=== PATIENT | male | born 1960 | race Caucasian/White ===

== ENCOUNTER 2017-10-16 10:51 | Emergency (ER) | payer MEDICAID, SELFPAY ==
[2017-10-16 10:58] VITALS: BP 146/94; PULSE 52; RESP 16; TEMP 36.9; O2SAT 98
--- NOTE | 2017-10-16 11:12 | ED.GENADUL_ITS ---
Disposition Clinical Impression: Shingles Disposition: HOME Condition: Good Instructions: Shingles (ED) Additional Instructions: Please take the medication and cream as directed. Please hold off on the acyclovir unless you notice no improvement of your symptoms with the other medications. If you notice any worsening of your symptoms, or any new symptoms such as vomiting, diarrhea, fever, chills, shortness of breath, chest pain, numbness, weakness, or fainting , please return immediately to the emergency department for reevaluation. Please follow up with your primary care provider as soon as possible for reassessment and reevaluation. As always, it was a pleasure participating in your medical care today. Prescriptions: Capsaicin 0.075% [Zostrix HP 0.075% Cream] 60 gm TP BID #1 tube Gabapentin [Neurontin] 300 mg PO TID #90 capsule Valacyclovir HCl [Valacyclovir] 1,000 mg PO TID #21 tablet Referrals: Parker Dang [Primary Care Provider] - Medical Decision Making - Medical Decision Making This is a very pleasant 57-year-old gentleman who presents with signs and symptoms consistent with shingles over his left shoulder and left neck. Patient demonstrates no systemic findings, no involvement over the eye, face, or ear. His pain is moderately controlled at this time. He did not receive his shingles shot secondary to the vaccine being out at multiple location that he has called. The patient has no other complaints, at this time. He is on no disease modifying antirheumatic agents or immunosuppressants. I do feel that he can be safely discharged home with close PCP follow-up at his regular clinic at [facility]. We will give a prescription for antivirals however discussed with the patient's of the low likelihood of this giving any benefit due to the duration of his symptomatology. I recommend that he hold off on this unless his other medication regimens do not give any relief. We discussed red flags which returned the patient understands. I have extensively reviewed the treatment plan and discharge instructions with the patient. I have addressed all patient concerns at this time. The patient was made aware of what symptoms to monitor for that would warrant a return to the emergency department. Discussed the plan with the patient, they demonstrate verbal understanding and agreement with our assessment and plan at this time. History of Present Illness - General Chief complaint: RashLesion Stated complaint: RASH Time Seen by Provider: 10/16/17 11:09 - History of Present Illness Initial comments: Is a 57-year-old male with no significant past medical history who presents for evaluation of rash on his left shoulder. The patient states that roughly 10-11 days ago he had toe surgery and cauterization of his nose, 2 days after this he developed a rash on his left shoulder which causes a burning and irritating-like pain. There is no additional spreading aside for his left shoulder and left neck. He has no pleuritic chest pain, significant drainage or discharge, spreading of the rash to the right side, foreign travel, toxic exposure, or other sick contacts. He denies any aggravating or relieving factors. He denies any other associated symptoms of numbness, tingling, weakness, vision changes, eye pain. Patient denies any IV or illicit drug use. He denies any other complaints at this time. He denies any pertinent family history. - Related Data Allopurinol 300 mg PO DAILY 05/10/15 Atenolol 50 mg PO DAILY 05/10/15 Arm Brace [Wrist Support] 1 each HS #1 each 06/13/15 Atorvastatin [Lipitor] 40 mg PO QPM #90 tab 03/07/16 Aspirin 81 mg PO DAILY #90 tab-cap 03/12/16 Allopurinol 1 tab PO DAILY 08/29/16 Ergocalciferol [Vitamin D] 1 cap PO DIRECTED 08/29/16 Finasteride 1 tab PO DAILY 08/29/16 Capsaicin 0.075% [Zostrix HP 0.075% Cream] 60 gm TP BID #1 tube 10/16/17 Gabapentin [Neurontin] 300 mg PO TID #90 capsule 10/16/17 Valacyclovir HCl [Valacyclovir] 1,000 mg PO TID #21 tablet 10/16/17 Allergies Allergy/AdvReac Type Severity Reaction Status Date / Time No Known Allergies Allergy Unverified 08/29/16 08:32 Review of Systems Other: 10 point review of systems was performed, pertinent positives and negatives are noted in the history of present illness. Past Medical History - Past Medical History Medical history: hypertension gout Surgical history: no surgical history General Exam - Other Other exam information: 1.Const: Well-nourished, Well-developed, appearing stated age 2.Eyes: PERRL, no conjunctival injection, and symmetrical lids. 3.ENT: Atraumatic external nose and ears. Moist MM. Neck: Symmetric, trachea midline, No thyromegaly. 4.CVS: +S1/S2, No murmurs or gallops. Peripheral pulses 2+ and equal in all extremities. Brisk capillary refill in all extremities. 5.RESP: Unlabored respiratory effort. Clear to auscultation bilaterally. No wheezes rales or rhonchi 6.GI: Soft, Nontender/Nondistended, No hepatosplenomegaly. No guarding or rebound. 7.MSK: Normocephalic/Atraumatic, Extremities w/o deformity or ttp No cyanosis or clubbing, Normal movement of all extremities 8.Skin: There appears to be mildly erythematous vesicular like rash over the patient's left shoulder, and left neck maintaining isolation to the associated dermatome. It does not pass midline. Negative Brown sign, no evidence of lesions on the nose, eye, or ear. No evidence of herpes zoster ophthalmicus, otic S, or any other area of involvement aside for the left shoulder and left neck. No active drainage. No signs of superimposed cellulitic infection. 9.Neuro: tire setter II-XII grossly intact. Sensation grossly intact, no focal neurologic deficits. 10.Psych: (AAO) x3. Appropriate mood and affect Course Vital Signs - 24 hr 10/16/17 10:58 Temperature 36.9 C Pulse 52 L Respiratory 16 Rate Blood Pressure 146/94 Pulse Oximetry 98
== END 2017-10-16 11:30 | disposition home or self-care (01) ==
PROVIDERS: Emergency Provider Student in an Organized Health Care Education/Training Program; PCP Internal Medicine
DX: B02.9 Zoster without complications (principal); I10 Essential (primary) hypertension
CPT/HCPCS: 99283

== ENCOUNTER 2019-10-01 00:40 | Outpatient (CLI) | payer MEDICAID, SELFPAY ==
--- NOTE | 2019-10-01 13:07 | DI.RAD_ITS ---
EXAM: XR SHOULDER LT COMPLETE 2+V CLINICAL HISTORY: CHRONIC PAIN, M25.512,G89.29,STIFFNESS,RESTRICTED ABDUCTION,? BONE SPUR OR. TECHNIQUE: 2D digital imaging was performed. COMPARISON: No exams were available for comparison FINDINGS: BONES: No acute fracture is present. No bony destructive lesion is seen. No periarticular spurring is seen. Mild degenerative cystic changes are seen at the greater tuberosity. JOINTS: No dislocation present. SOFT TISSUE: Normal. IMPRESSION: No acute abnormality. No bone spurs are appreciated. DATA REPOSITORY: RADIATION DOSE DELIVERED:
== END 2019-10-01 01:00 ==
PROVIDERS: PCP Internal Medicine; Visit Provider Internal Medicine
DX: M25.512 Pain in left shoulder (principal); G89.29 Other chronic pain; M25.612 Stiffness of left shoulder, not elsewhere classified
CPT/HCPCS: 73030

== ENCOUNTER 2020-02-05 03:37 | Outpatient (CLI) | payer MEDICAID, SELFPAY ==
[2020-02-05 14:07] LABS: Calculated LDL 93 mg/dL (<100); Cholesterol 174 mg/dL (<200); HDL Cholesterol 55 mg/dL (40-60); Triglyceride 134 mg/dL (<150)
== END 2020-02-05 03:57 ==
PROVIDERS: PCP Internal Medicine; Visit Provider Internal Medicine Rheumatology
DX: E78.00 Pure hypercholesterolemia, unspecified (principal)
CPT/HCPCS: 36415; 80061

== ENCOUNTER 2020-11-30 03:09 | Outpatient (CLI) | payer MEDICAID, SELFPAY ==
--- NOTE | 2020-11-30 | DI.RAD_ITS ---
Exam(s) XR LUMBAR SPINE COMPLETE EXAM: XR LUMBAR SPINE COMPLETE CLINICAL HISTORY: LOW BACK PAIN, M54.5. TECHNIQUE: 2D digital imaging was performed. COMPARISON: No exams were available for comparison FINDINGS: There is no evidence of fracture or listhesis. The L5 segment is sacralized. Mild disc space narrow ing at this level. Other disc spaces above this level exhibit normal height. Anterior osseous lippi ng is noted at L1-2 level which probably indicates an element of disc disease despite preserved disc height at this level. Mild facet arthropathy. Sacroiliac joints appear unremarkable. No scoliosis. IMPRESSION: Findings as above. Sacralized L5 segment. This places additional stress upon the L4-5 disc space. DATA REPOSITORY: RADIATION DOSE DELIVERED:
--- NOTE | 2020-11-30 11:20 | DI.RAD_ITS ---
Exam(s) XR SACRUM COCCYX EXAM: XR SACRUM COCCYX CLINICAL HISTORY: BUTTOCK AND LOW BACK PAIN, M79.18,M54.5. TECHNIQUE: 2D digital imaging was performed. COMPARISON: No exams were available for comparison FINDINGS: No evidence of sacral fracture nor obvious osseous lesions. Sacroiliac joints appear unremarkable. Symphysis pubis appears unremarkable. No osseous lesions. IMPRESSION: DATA REPOSITORY: RADIATION DOSE DELIVERED:
== END 2020-11-30 03:29 ==
PROVIDERS: PCP Internal Medicine; Visit Provider Internal Medicine
DX: M54.59 Other low back pain (principal); M79.18 Myalgia, other site; Q76.49 Other congenital malformations of spine, not associated with scoliosis; M47.896 Other spondylosis, lumbar region
CPT/HCPCS: 72110; 72220

== ENCOUNTER 2021-08-27 12:25 | Emergency (ER) | payer MEDICAID, SELFPAY ==
[2021-08-27 12:29] VITALS: BP 151/104; PULSE 67; RESP 14; O2SAT 98
--- NOTE | 2021-08-27 13:00 | DI.RAD_ITS ---
Exam(s) XR FINGER LT INDEX EXAM: XR FINGER LT INDEX EXAM DATE/TIME: CLINICAL HISTORY: possible wood splinter near DIP. TECHNIQUE: 2D digital imaging was performed of the left finger. Three views were obtained. PA/AP, oblique, and lateral views were obtained. COMPARISON: None. FINDINGS: BONES: No acute fracture is present. No bony destructive lesion is seen. JOINTS: No dislocation is present. SOFT TISSUE: Normal. No radiopaque foreign body. IMPRESSION: No evidence of a radiopaque foreign body. DATA REPOSITORY: RADIATION DOSE DELIVERED:
--- NOTE | 2021-08-27 13:15 | ED.GENADUL_ITS ---
Discharge Plan Disposition Patient Disposition: HOME Condition: Stable Discharge Details Clinical Impression: Infection of skin of finger Primary Care Provider: Parker Dang ED Provider: Alva He Home Meds and New Rx's Prescriptions: New cephalexin 500 mg capsule 500 mg PO QID 7 Days Qty: 28 0RF Continued (DME) arm brace [Wrist Support Large-XLarge] 1 EACH misc 1 ea Miscellaneous HS Qty: 1 Rx Instructions: Left carpal tunnel splint. Wear at night. atorvastatin [Lipitor] 40 MG tablet 40 mg PO QPM Qty: 90 aspirin 81 MG tablet,chewable 81 mg PO DAILY Qty: 90 allopurinol 300 MG tablet 300 mg PO DAILY atenolol 50 MG tablet 50 mg PO DAILY allopurinol 100 MG tablet 1 tab PO DAILY Label Comments: 08/29/16 pt states he takes 1 300mg tab and 1 100mg tab daily at 12 noon ergocalciferol (vitamin D2) [Vitamin D2] 50,000 UNITS capsule 1 cap PO DIRECTED Finasteride 5 MG Tablet 1 tab PO DAILY gabapentin [Neurontin] 300 MG capsule 300 mg PO TID Qty: 90 0RF Rx Instructions: On the first day take 1 pill, on the second day take 1 pill twice daily, on the third day and for the remainder of the prescription take 1 pill 3 times a day. valacyclovir 1,000 MG tablet 1,000 mg PO TID Qty: 21 0RF capsaicin [Trixaicin HP] 60 GM cream 60 gm Topical BID Qty: 1 0RF Rx Instructions: Apply cream to the affected area twice daily Discharge Instructions Instructions: Cellulitis (ED) Additional Instructions: Your x-ray today is reassuring and shows no evidence of foreign body or fracture. A wood splinter may not be visible on x-ray. It may be possible that if there is a retained wood splinter and it may work itself out to the surface at a later time. A prescription for antibiotics has been sent electronically to your pharmacy to take as directed until finished. Keep wound clean and dry. Cover wound with bandage if risk of contamination. Otherwise you can keep the wound open to air if resting at home to allow edges to dry and heal. Follow-up with your primary care doctor in 1 week. Return to the emergency department with any worsening or new concerning symptoms such as fever, increased pain, redness or swelling. Discharge Data Discharge Physician: Alva He Medical Decision Making 61-year-old male presents with concern for embedded wood splinter in his left second finger for the past 2 weeks. Patient appears comfortable and nontoxic. He has a 2 mm circular open wound on the volar surface of the lateral finger near the DIP joint. There is mild surrounding erythema and edema. There is no obvious crepitus or evidence of cellulitis or abscess. Discussed with patient at length that his symptoms could be secondary to a skin infection rather than a embedded foreign body. Will refer for x-rays but discussed that would may not be evident on x-ray. As there is no palpable or obvious foreign body on inspection, discussed that I do not recommend incision and exploration at this site due to risk of neurovascular injury. Patient referred for x-ray which was unremarkable. Will cover with antibiotics. Patient advised on the importance of wound care. Advised that if there is an embedded splinter it may potentially work itself to the surface. Advised to return if he develops any worsening symptoms such as fever or increasing redness swelling or pain. Medical Records Medical records reviewed: Yes I reviewed the patient's medical records. Imaging Data Radiologic Study: Radiologist's impression: XR Left Finger(s) Exam date and time: 08/27/2021 1:25 PM Age: 61 years old Clinical indication: Other: Possible wood splinter near dip TECHNIQUE: Imaging protocol: Radiologic exam of the Left fingers. Views: Minimum 2 views. COMPARISON: No relevant images were readily available for comparison purposes. FINDINGS: Bones/joints: No acute fracture or dislocation. Soft tissues: Unremarkable. IMPRESSION: No acute findings.? No radiopaque foreign body. HPI General Mode of arrival: ambulatory . Date/Time Provider Initiated Documentation: 08/27/21 12:37 . Limitations to Documentation: no limitations . Information obtained by: patient . HPI Narrative: Patient is a 61-year-old male who presents with left second finger pain for the past 2 weeks after he states he got a wood splinter in his finger. Patient states he attempted to search for a splinter that was embedded in his finger but could not find it. He states he cleaned his finger and cut around the area with nail clippers but could not find the splinter. He states since then the area has become more painful and suspect there is a retained wood splinter. He denies fever. He states his tetanus is up-to-date within the last 5 years. Related Data Home Medications Medication Instructions Recorded Confirmed allopurinol 300 mg tablet 300 mg PO DAILY 05/10/15 10/16/17 atenolol 50 mg tablet 50 mg PO DAILY 05/10/15 10/16/17 arm brace (Wrist Support #1 ea 06/13/15 Large-XLarge) atorvastatin 40 mg tablet (Lipitor) 40 mg PO QPM #90 tabs 03/07/16 aspirin 81 mg chewable tablet 81 mg PO DAILY #90 tab-caps 03/12/16 Finasteride 1 tab PO DAILY 08/29/16 10/16/17 allopurinol 100 mg tablet 1 tab PO DAILY 08/29/16 08/29/16 ergocalciferol (vitamin D2) 1,250 1 cap PO DIRECTED 08/29/16 10/16/17 mcg (50,000 unit) capsule (Vitamin D2) capsaicin 0.075 % topical cream 60 gm topical BID #1 tube 10/16/17 (Trixaicin HP) gabapentin 300 mg capsule 300 mg PO TID ##90 10/16/17 (Neurontin) valacyclovir 1 gram tablet 1,000 mg PO TID ##21 10/16/17 cephalexin 500 mg capsule 500 mg PO QID 7 days #28 caps 08/27/21 Previous Rx's Medication Instructions Recorded capsaicin 0.075 % topical cream 60 gm topical BID #1 tube 10/16/17 (Trixaicin HP) gabapentin 300 mg capsule 300 mg PO TID ##90 10/16/17 (Neurontin) valacyclovir 1 gram tablet 1,000 mg PO TID ##21 10/16/17 cephalexin 500 mg capsule 500 mg PO QID 7 days #28 caps 08/27/21 Allergies Allergy/AdvReac Type Severity Reaction Status Date / Time No Known Allergies Allergy Unverified 08/27/21 12:34 General Stated Complaint: GenMedical MIKE: 5 Review of Systems All systems reviewed & are unremarkable except as noted in HPI and below Constitutional Constitutional: Reports as per HPI, Denies chills and Denies fever(s) Eyes Eyes: Denies blurry vision ENT Ears, Nose, Mouth, and Throat: Denies dizziness, Denies sore throat and Denies throat swelling Cardiovascular Cardiovascular: Denies chest pain and Denies dyspnea Respiratory Respiratory: Denies cough and Denies dyspnea Gastrointestinal Gastrointestinal: Denies abdominal pain, Denies diarrhea and Denies vomiting Genitourinary Genitourinary: Denies hematuria and Denies dysuria Musculoskeletal Musculoskeletal: Denies back pain and Denies numbness Comments: L 2nd finger pain Integumentary/Breasts Skin/Breast: Denies lesions and Denies rash Neurologic Neurologic: Denies dizziness, Denies localized weakness and Denies numbness Allergic/Immunologic Allergic/Immunologic: Denies throat swelling PFSH All Active Problems (Updated 08/27/21 @ 14:01 by Alva He DO) Infection of skin of finger (Acute) Medical History (Updated 08/27/21 @ 14:01 by Alva He DO) CVA (cerebral vascular accident) HTN (hypertension) Hx of hyperlipidemia Surgical History (Updated 09/27/16 @ 12:00 by Lyric Castellanos) Colonoscopy - IV Sedation (08/29/16) EGD - IV Sedation (08/29/16) Social History Smoking/Tobacco Use Status: Never Smoking risk assessment performed?: Yes Alcohol Intake: current Alcohol Intake frequency: 0-2 drinks per day Alcohol type: wine Drug use: Never Substance use type: does not use Do you feel safe at home: Yes Do you feel safe in your relationship?: Yes Exam Const General: cooperative, healthy appearing and no acute distress Orientation: alert, awake and oriented x3 HENMT Head: normal to inspection Mouth: oral mucosae normal Eyes General: appearance normal, both eyes and all related structures Neck Neck: normal visual inspection Resp Effort & Inspection: normal respiratory effort and able to speak in complete s entences Cardio Rate: regular rate Skin General skin exam: no rashes or lesions noted Neuro General: patient alert, patient awake and patient oriented x3 Motor: muscle tone normal throughout Extrem Hand/finger images: 1. 2x2mm crusted wound noted on volar lateral surface of L 2nd finger near DIP. There is mildly surrounding erythema, edema, tenderness to palpation and pain with range of motion. No induration, fluctuance, drainage, bleeding or crepitus. There is full range of motion at the left second finger without limitation or deformity. Psych Appearance: grossly normal Affect: normal affect Course Vital Signs Vital signs: Vital Signs Pulse 67 08/27/21 12:29 Respiratory Rate 14 08/27/21 12:29 Blood Pressure 151/104 H 08/27/21 12:29 Pulse Oximetry 98 08/27/21 12:29 Pulse 67 08/27/21 12:29 Respiratory Rate 14 08/27/21 12:29 Respiratory Effort Non-Labored 08/27/21 12:35 Blood Pressure 151/104 H 08/27/21 12:29 Blood Pressure Position Sitting 08/27/21 12:29 Pulse Oximetry 98 08/27/21 12:29 Oxygen Delivery Method Room Air 08/27/21 12:29 Oxygen Flow Rate 0 08/27/21 12:29 Pain Level 0 08/27/21 12:29 PAWSS Have you Been Recently Intoxicated or Drunk Within the Last 30 days?: No Have you Ever Experienced Previous Episodes of Alcohol Withdrawal?: No Have you ever Experienced Withdrawal Seizures?: No Have you ever Experienced Delirium Tremens(DT)s?: No Have you ever undergone Alcohol Rehabilitation Treatment (i.e, inpt ot outpatient treatment programs)?: No Have you ever Experienced Blackouts?: No Have you ever Combined Alcohol with other Downers within the last 90 days?: No Have you ever Combined Alcohol with any other Substance of Abuse during the last 90 days?: No Positive Blood Alcohol level on Presentation? [PCS.BAL]: No Evidence of Increased Autonomic Activity (i.e. HR>120, tremor, sweating, agitation, nausea)?: No Result: 0
--- NOTE | 2021-08-27 13:35 | DI.VRAD_ITS ---
PROCEDURE INFORMATION: Exam: XR Left Finger(s) Exam date and time: 08/27/2021 1:25 PM Age: 61 years old Clinical indication: Other: Possible wood splinter near dip TECHNIQUE: Imaging protocol: Radiologic exam of the Left fingers. Views: Minimum 2 views. COMPARISON: No relevant images were readily available for comparison purposes. FINDINGS: Bones/joints: No acute fracture or dislocation. Soft tissues: Unremarkable. IMPRESSION: No acute findings. No radiopaque foreign body. Dictated and Authenticated by: Ino Eid MD. Ordering:COREY Calle MD
[2021-08-27] MEDS: Cephalexin 500 MG CAP PO (14:09)
== END 2021-08-27 14:09 | disposition home or self-care (01) ==
PROVIDERS: Emergency Provider Physician Assistant; PCP Internal Medicine
DX: L08.9 Local infection of the skin and subcutaneous tissue, unspecified (principal); S61.201A Unspecified open wound of left index finger without damage to nail, initial encounter; I10 Essential (primary) hypertension; Z86.73 Personal history of transient ischemic attack (TIA), and cerebral infarction without residual deficits; W26.8XXA Contact with other sharp object(s), not elsewhere classified, initial encounter
CPT/HCPCS: 99283; 73140; 99284

== ENCOUNTER 2021-08-29 11:28 | Emergency (ER) | payer MEDICAID, SELFPAY ==
--- OUTSIDE RECORDS SUMMARY | 2021-08-29 11:43 | XMS_ITS | Clinical Summary ---
:1960 Author Organization [facility] [place] [address] Care Team Providers Name Role Phone Parker Dang MD Primary Care Provider Allergies No known active allergies Medications Medication Sig Dispensed Refills Start Date End Date Status colchicine (COLCRYS) Take 1 tablet by 60 tablet 3 02/08/2016 Active 0.6 mg mouth 2 times TabletIndications: daily as needed. Gout, unspecified Reported on cause, unspecified 01/31/2016 chronicity, unspecified site, CKD (chronic kidney disease), unspecified stage, Proteinuria, Gynecomastia diclofenac (Voltaren) Apply 2 g 100 g 3 08/03/2019 Active 1 % GelIndications: topically 4 times Primary osteoarthritis daily as needed. of both knees, Gout, unspecified cause, unspecified chronicity, unspecified site cholecalciferol, Take 1 capsule by 90 capsule 3 11/15/2020 Active Vitamin D3, mouth daily. (cholecalciferol, Vitamin D3,) 50 mcg (2,000 unit) Capsule atenoloL (Tenormin) 50 TAKE ONE TABLET 90 tablet 3 12/22/2020 Active mg TabletIndications: BY MOUTH EVERY Hypertension, DAY unspecified type finasteride (Proscar) TAKE 1 TABLET BY 90 tablet 3 12/22/2020 Active 5 mg MOUTH ONCE DAILY TabletIndications: Benign prostatic hyperplasia with lower urinary tract symptoms, symptom details unspecified, Lower urinary tract symptoms (LUTS) aspirin 81 mg Tablet, CHEW ONE TABLET 90 tablet 3 03/21/2021 Active ChewableIndications: BY MOUTH EVERY Idiopathic chronic DAY gout, left ankle and foot, with tophus (tophi) allopurinoL (Zyloprim) Take 1 tablet by 90 tablet 3 03/27/2021 Active 300 mg mouth daily. TabletIndications: Gout, unspecified cause, unspecified chronicity, unspecified site atorvastatin (Lipitor) TAKE ONE TABLET 90 tablet 3 06/02/2021 Active 40 mg BY MOUTH EVERY TabletIndications: DAY Hyperlipidemia, unspecified hyperlipidemia type Active Problems Problem Noted Date Sacralization of lumbar vertebra 11/30/2020 Primary osteoarthritis involving multiple joints 12/03 Ingrown toenail 06/11/2017 Ankle pain 05/23/2017 Lower urinary tract symptoms (LUTS) 05/22/2017 Traumatic amputation two or more fingers 01/18/2017 Overview: 4th and 5th fingers on left hand CKD (chronic kidney disease) 01/18/2017 Overview: Perhaps hypertensive nephropathy Aortic ectasia 11/22/2016 Hypertension 11/19/2016 Overview: Patient's home BP cuff validated in clin ic today 06/11/2017. Hyperlipidemia 11/19/2016 Gout 11/19/2016 BPH (benign prostatic hyperplasia) 11/19/2016 Diverticulosis of both small and large intestine witho ut perforation or 06/21/2016 abscess without bleeding Overview: 06/21/16 [facility] E D; treated with Augmentin 500-125 BID x7 days; no symptoms revealed by 08/29/16 colo Encounters Date Type Specialty Care Team Description 06/01/2021 Refill Internal Medicine Astrid Larose MD Hyp erlipidemia, unspecified hyperlipidemia type from Last 3 Months Immunizations Name Administration Dates Next Due Influenza PF, Split 12/07/2019, 04/23/2019 Influenza Vaccine PF, Quadrivalent 04/23/2019, 12/03/2017 Influenza Vaccine W/preservative, Quadrivalent 12/07/2019 Influenza Vaccine, Unspecified Formulation 12/08/2020 Tdap Vaccine 01/18/2017 Zoster, Recombinant 02/21/2018, 12/01/2017 Family History Medical History Relation Comments Cancer Father Esophageal Cancer Father Coronary Artery Disease Maternal Grandfather Endocrine Disorder Maternal Grandfather Heart Disease Maternal Grandfather Hyperlipidemia Maternal Grandfather Diabetes Neg Hx Thyroid Disease Neg Hx Relation Status Comments Brother Alive Father Maternal Grandfather Sister 1 Alive Sister 2 Alive Sister 3 Alive Social History Tobacco Use Types Packs/Day Years Used Date Never Smoker Smokeless Tobacco: Never Used Alcohol Use Standard Drinks/Week Comments Yes 14 (1 standard drink = 0.6 oz pure wine 'with lots of ice' or cal alcohol) cally/rum nightly Alcohol Habits Answer Date Recorded How often do you have a drink Not asked containing alcohol? How many drinks containing alcohol do Not asked you have on a typical day when you are drinking? How often do you have six or more Not asked drinks on one occasion? Comment: wine 'with lots of ice' or cal 2020 cally/rum nightly Physical Activity Answer Date Recorded On average, how many days per week do you engage in moderate to 4 days 09/23/2020 strenuous exercise (like walking fast, running, jogging, dancing, swimming, biking, or other activities that cause a light or heavy sweat)? On average, how many minutes do you engage in exercise at th is 10 min 09/23/2020 level? Housing Stability Answer Date Recorded In the last 12 months, was there a time when you were Patien t refused 09/23/2020 not able to pay the mortgage or rent on time? In the last 12 months, how many places have you lived? 1 09/23/2020 In the last 12 months, was there a time when you did Patient refused 09/23/[address] to sleep or slept in a longterm (including now)? Sex Assigned at Date Recorded Male 05/03/2020 3:20 PM EDT Last Filed Vital Signs Vital Sign Reading Time Taken Comments Blood Pressure 133/79 09/27/2020 3:36 PM EDT Pulse 63 09/27/2020 3:36 PM EDT Temperature 37.1 ??C (98.8 ??F) 09/27/2020 3:36 PM EDT Respiratory Rate 18 06/11/2017 2:30 PM EDT Oxygen Saturation 96% 09/27/2020 3:36 PM EDT Inhaled Oxygen Concentration - - Weight 93.8 kg (206 lb 12.8 09/27/2020 3:36 PM with melissa es on oz) EDT Height 176.8 cm (5' 9.61) 09/27/2020 3:36 PM with lili foster on EDT Body Mass Index 30.01 09/27/2020 3:36 PM EDT Plan of Treatment Health Maintenance Due Date Last Done Comments Covid-19 Vaccine (#1) 01/05/1965 HIV screen 1977 Advance Directive 2014 Colonoscopy 08/29/2021 08/29/2016 (See prior EHR), 08/29/2016 Influenza (Flu) vaccine (1 of 1 - 10/19/2021 12/08/2020, , Influenza standard series) 12/07/2019, Additiona l history exists Diabetes Screening (HgbA1C or 09/28/2023 09/27/2020, 2018, Glucose) 12/03/2017, Additional history exists Tetanus vaccine 01/18/2027 01/18/2017 Hepatitis C Screening Completed 08/10/2003 (See prior EHR) Tdap adult Completed 01/18/2017 Zoster vaccine Completed 02/21/2018, 12/01/2017 Goals Goal Patient Goal Associated Recent Patient-Stated? 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
--- OUTSIDE RECORDS SUMMARY | 2021-08-29 11:44 | XMS_ITS | Encounter Summary ---
:1960 Author Organization [facility] Address [address] [place] [address] Care Team Providers Name Role Phone Parker Dang MD Primary Care Provider Encounter Details Date Type Department Care Team Description 09/28/2019 TH Visit Internal Medicine at Parker Dang onic pain in left shoulder; (TeleHealth) Radha Mendoza MD Changing skin lesion; [address] [facility] [place] [address] GENERAL INTERNAL [phone] [place] [id number] Social History Tobacco Use Types Packs/Day Years Used Date Never Smoker Smokeless Tobacco: Never Used Alcohol Use Standard Drinks/Week Comments Yes 14 (1 standard drink = 0.6 oz pure alcoh ol) Physical Activity Answer Date Recorded On average, [...] place to sleep or slept in a detention (including now)? Sex Assigned at Date Recorded Male 05/03/2020 3:20 PM EDT documented as of this encounter Progress Notes Parker Dang MD - 09/28/2019 3:00 PM EDT Subjective: Patient ID: Mohit Dotson is a 59 y.o. male. HPI Appointment for shoulder pain. Left shoulder is bothering him - has been told he has a 'bone spur' that is limiting his mobility/movement. Right shoulder is a bit painful, but responds to ice; the left shoulder gets sore frequently,but not red (that he can see). It does seem to get swollen once in a while when he 'does too much.' He can have weakness in the left arm with lifting heavy objects, which he does not think is apprehension but actual weakness. He reports that his dining room coordinator has felt some crepitus. No neck pain; thepain feels very focused to the shoulder. He has some numbness that can go from the bicep to the shoulder. Not taking any pain medications for it. Reports that he had an appointment for gout with rheumatology in July and will have a new dining room coordinator in October. BP is 140s systolic, weight is stable. Reports that he has ongoing occasional epistaxis that was seen in January by Dr. Britton. Hasn't beentreating with any ointments at this time, but does have water on the stove to keep the area moist. Has some changing 'moles' on his back that he wants to send me a picture of. Not sure he wants to goto dermatology. Review of Systems No fevers or chills. Objective: Physical Exam NAD, pleasant +Painful arc test at 90 degrees. Negative drop arm test. Empty can sign is positive. Apley scratch testing is positive. Assessment and Plan: 59 yo M with gout now with left>>right shoulder pain. Likely adhesive capsulitis +/- glenohumeral arthritis. - left shoulder pain: start with shoulder XR and determine role for further intervention (PT vs steroid injection vs ortho referral) - epistaxis: recommended restarting emollient (Vaseline) to encourage moist environment in the nare;if no resolution, return to ENT - changing skin lesions: instructed him to send a pic to me and we can determine whether there is a need for dermatology; per 2018 derm note, he has many SKs, which I am guessing is there. documented in this encounter Plan of Treatment Not on filedocumented as of this encounter Goals Goal Patient Goal Associated Recent Patient-Stated? 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
--- OUTSIDE RECORDS SUMMARY | 2021-08-29 11:44 | XMS_ITS | Encounter Summary ---
:1960 Author Organization [facility] [place] [address] Care Team Providers Name Role Phone Parker Dang MD Primary Care Provider Reason for Visit Reason Onset Date Comments Establish Care 11/25/2018 Encounter Details Date Type Department Care Team Description 11/25/2018 [facility] [address] [place] [address] Social History Tobacco Use Types Packs/Day Years [...] minutes do you engage in exercise at is 10 min 09/23/2020 level? Housing Stability [...] place to sleep or slept in a [place] facility (including now)? Sex Assigned at Date Recorded Male 05/03/2020 3:20 PM EDT documented as of this encounter Miscellaneous Notes Telephone Encounter - Rajwinder Moore - 11/26/2018 10:08 AM EDT Patient is staying with Dr. Dang and going to [facility] Telephone Encounter - Bela Benedict - 11/25/2018 10:15 AM EDT Route encounter to Admin Tenant Selector of current PCP Request Details (done by the [facility]) Name of Caller: Reji Current PCP: Parker Dang MD What is the reason for the switch request? Patient does not want to follow to [facility] and does not want a female provider What/Who is the pt???s PCP preference? Male Provider Immediate needs: no Comments: Review of History (done by ) No issues of concern No shows Previous PCP switches Patient has seen assigned PCP Resolution Switch Approved: Reestablish with: Appointment needs: Switch Declined: Patient may choose to keep their current PCP or seek primary care outside [facility] Other: documented in this encounter Plan of Treatment Not on filedocumented as of this encounter Goals Goal Patient Goal Associated Recent Patient-Stated? 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
--- OUTSIDE RECORDS SUMMARY | 2021-08-29 11:44 | XMS_ITS | Encounter Summary ---
:1960 Author Organization [facility] [place] [address] Care Team Providers Name Role Phone Parker Dang MD Primary Care Provider Reason for Visit Reason Onset Date Comments Immunizations 12/07/2019 Encounter Details Date Type Department Care Team Description 12/07/2019 Telephone Internal Medicine at [facility] Mickie Quintero Immunizations [address] [place], [place] [id number] Social History Tobacco Use Types Packs/Day Years [...] place to sleep or slept in a custodial (including now)? Sex Assigned at Date Recorded Male 05/03/2020 3:20 PM EDT documented as of this encounter Miscellaneous Notes Telephone Encounter - Mickie Quintero - 12/07/2019 11:45 AM EDT Message: Pt is calling to speak with a nurse. Pt states he is going for his flu shot today and thereare 3 different shots. Pt is wondering which one he should get? Please call to advise. Ask caller their first and last name and relationship to the patient: self Best time to call back: any Ok to leave a message: y Ok to send my- message: n Offered Appointment: n MA/Nurse/[place] contacted via: Message: y Call: y Pager: n documented in this encounter Plan of Treatment Not on filedocumented as of this encounter Goals Goal Patient Goal Associated Recent Patient-Stated? 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
--- OUTSIDE RECORDS SUMMARY | 2021-08-29 11:44 | XMS_ITS | Encounter Summary ---
:1960 Author Organization [facility] [place] [address] Care Team Providers Name Role Phone Parker Dang MD Primary Care Provider Reason for Visit Reason Comments Medication Refill Encounter Details Date Type Department Care Team Description 03/21/2019 Refill Rhe[place]ology at [facility] Gina Gutierrez Gout, unspecified [facility] Xavier Garcia DO cause, [place] [address] [facility] chronicity, unspecified [phone] DR barraza RHEUMATOLOGY [place], [place] [address] (Wo rk) Social History Tobacco Use Types Packs/Day Years [...] place to sleep or slept in a retirement (including now)? Sex Assigned at Date Recorded Male 05/03/2020 3:20 PM EDT documented as of this encounter Plan of Treatment Not on filedocumented as of this encounter Goals Goal Patient Goal Associated Recent Patient-Stated? Author Type Problems Progress Blood Blood Hypertension 133/79 No Romero, Pressure < Pressure (09/27/2020 Susie Del Toro, 130/90 3:36 PM EDT) PUTTY PATCHER documented as of this encounter Visit Diagnoses Diagnosis Gout, unspecified cause, unspecified chr onicity, unspecified site documented in this encounter Care Teams Supervisor Pipe Joints Relationship Specialty Start Date End Date Parker Dang MD PCP - General General Internal Medicine 10/01/16 [facility] GENER[place] [address] documented as of this encounter
--- OUTSIDE RECORDS SUMMARY | 2021-08-29 11:44 | XMS_ITS | Encounter Summary ---
:1960 Author Organization [facility] [place] [address] Care Team Providers Name Role Phone Parker Dang MD Primary Care Provider Encounter Details Date Type Department Care Team Description 06/17/2017 External Results Internal Medicine at Rajwinder Arias , Acute UTI (urinary [address] HAND ICER tract infection) [address] [place] [id number] Social History Tobacco Use Types Packs/Day Years [...] place to sleep or slept in a jail (including now)? Sex Assigned at Date Recorded Male 05/03/2020 3:20 PM EDT documented as of this encounter Plan of Treatment Not on filedocumented as of this encounter Goals Goal Patient Goal Associated Recent Patient-Stated? Author Type Problems Progress Blood Blood Hypertension 133/79 No Romero, Pressure < Pressure (09/27/2020 Susie Del Toro, 130/90 3:36 PM EDT) HAND ICER documented as of this encounter Procedures Procedure Name Priority Date/Time Associated Comments Diagnosis URINALYSIS WITH Routine 06/14/2017 12:09 PM Acute UTI (urinary Results for this REFLEX CULTURE EDT tract infection) procedure are in the results section. documented in this encounter Results (ABNORMAL) Urinalysis with reflex Culture (06/14/2017 12:09 PM EDT) [facility] gist Method Time Signature Color UA yellow EXTERNAL LAB (External Lab) Appearance UA clear EXTERNAL LAB (External Lab) Spec [place] UA 1.015 EXTERNAL LAB (External Lab) pH UA 7.0 EXTERNAL LAB (External Lab) Protein UA 100 (ExtH) EXTERNAL LAB Comment: external reference range negati ve Glucose UA negative (External Lab) EXTER NAL LAB Ketones UA negative (External Lab) EXTER NAL LAB Bilirubin UA negative (External Lab) EXT ERNAL LAB Urobilinogen UA 0.2 (External Lab) EXTER NAL LAB Blood UA moderate (ExtH) EXTERNAL LAB Comment: external reference range negati ve Leukocytes UA small (ExtH) EXTERNAL LAB Comment: external reference range negati ve Nitrite UA negative (External Lab) EXTER NAL LAB Specimen (Source) Anatomical Collection Method Collection Time Re ceived Time Location / / Volume Laterality Urine specimen 06/14/2017 12:09 obtained by clean PM EDT catch procedure (specimen) Narrative This result has an attachment that is no t available. Parker Dang MD URINE ORDERABLES Performing Organization Address City/State/ZIP Code Phon e Number EXTERNAL LAB documented in this encounter Visit Diagnoses Diagnosis Acute UTI (urinary tract infection) Urinary tract infection, site not specif ied documented in this encounter Care Teams Accounting Machine Servicer Relationship Specialty Start Date End Date Parker Dang MD PCP - General General Internal Medicine 10/01/16 [facility] GENERAL [place] [address] documented as of this encounter
--- OUTSIDE RECORDS SUMMARY | 2021-08-29 11:44 | XMS_ITS | Encounter Summary ---
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
--- OUTSIDE RECORDS SUMMARY | 2021-08-29 11:44 | XMS_ITS | Encounter Summary ---
:1960 Author Organization [facility] [place] [address] Care Team Providers Name Role Phone Parker Dang MD Primary Care Provider Encounter Details Date Type Department Care Team Description 06/11/2017 Office [place] [facility] [place], Idiopathic gout of multiple sites, unspecified chronicity; [facility] Gina Garcia DO Primary osteoarthritis involving multipl [place] [address] CENTER [phone] [place] [address] Social History Tobacco Use Types Packs/Day Years [...] place to sleep or slept in a fdc (including now)? Sex Assigned at Date Recorded Male 05/03/2020 3:20 PM EDT documented as of this encounter Progress Notes Gina Gutierrez DO - 06/11/2017 1:30 PM EDT Outpatient Rheumatology Followup Problem List: 1. Gout :Was off allopurinol for 10 years and is back on it starting in 2015.taking allopurinol 400 mg daily. Last uric acid 02/2016 was 4.1 2. OA. 3. TIA 4. CKD - GFR 46-53 He states that he has always had joint pains that he thinks were normal and tolerable. Has other chronic joint pains that feel different than his gout. 5. Low vitamin D (28 in May 2016) Interim History: Last seen in November. Gout:continues on allopurinol with no severe gout flares. Most recent uric acid was 5 on 05/09. We lowered his allopurinol to 300 mg daily. He continues to get pain in his toe joints. His knees bother him some days. Other days he is OK. He is eating a very healthy diet. He has not needed any colchicine or diclofenac. Low vitamin D: has been taking weekly vitamin D. Went to see Dr. Hand, ENT at [place]. He has epistaxis and a deviated septum. Needs surgeryfor this. Scheduled or July 04. Left shoulder continues to hurt but not as much. PMH: CVA, HTN, hyperlipidemia, CKD Social Hx: never smoker Family Hx: father had gout Physical Exam: Not repeated today Assessment and Plan: This was a counseling dominated visit. I spent 30 minutes with the patient and 25 minutes was spent in discussion of the followin yo male with gout and osteoarthritis. I explained that the pain that is occurring intermittently in his toes is from osteoarthritis. Likewise this is the same reason for the pain in his knees. He continues to be quite active and I encouraged him to keep doing this. He is eating a healthy diet and I congratulated him for this as well. He will continue taking 300 mg of allopurinol. We do not need any labs today. He is seeing Dr. Dang today after this visit. He is having surgeryfor his deviated septum on May 17. RTC in 6 months. The patient knows to call or write in the interim with any concerns or questions. documented in this encounter Plan of Treatment Not on filedocumented as of this encounter Goals Goal Patient Goal Associated Recent Patient-Stated? 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
--- OUTSIDE RECORDS SUMMARY | 2021-08-29 11:44 | XMS_ITS | Encounter Summary ---
:1960 Author Organization [facility] [place] [address] Care Team Providers Name Role Phone Parker Dang MD Primary Care Provider Reason for Visit Reason Onset Date Comments Medication Refill 05/31/2020 Encounter Details Date Type Department Care Team Description 05/31/2020 Refill Internal Medicine at Parker Dang, Idiopathic chronic [address] gout, left ankle and [address] [facility] [address] [place], [place] [address] GENERAL INTERNAL (tophi) [phone] MED-LYME [place], [place] [address] (Wo rk) Social History Tobacco [...] place to sleep or slept in a intermediate (including now)? Sex Assigned at Date Recorded Male 05/03/2020 3:20 PM EDT documented as of this encounter Plan of Treatment Not on filedocumented as of this encounter Goals Goal Patient Goal Associated Recent Patient-Stated? 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
--- OUTSIDE RECORDS SUMMARY | 2021-08-29 11:44 | XMS_ITS | Encounter Summary ---
:1960 Author Organization [facility] [place] [address] Care Team Providers Name Role Phone Parker Dang MD Primary Care Provider Encounter Details Date Type Department Care Team Description 01/29/2019 Orders Only [place] [facility] [place], Mixed hyperlipidemia [facility] [place] [address] RHEUMATOLOGY [place], [place] [address] Social History Tobacco Use Types Packs/Day Years [...] Susie Del Toro, 130/90 3:36 PM EDT) PCAT INSTRUCTOR documented as of this encounter Visit Diagnoses Diagnosis Mixed hyperlipidemia documented in this encounter Care Teams Medical Coding Specialist Relationship Specialty Start Date End Date Parker Dang MD PCP - General General Internal Medicine 10/01/16 [facility] [place] [address] documented as of this encounter
--- OUTSIDE RECORDS SUMMARY | 2021-08-29 11:44 | XMS_ITS | Encounter Summary ---
:1960 Author Organization [facility] [place] [address] Care Team Providers Name Role Phone Parker Dang MD Primary Care Provider Reason for Visit Reason Comments Medication Refill Encounter Details Date Type Department Care Team Description 09/20/2020 Refill Internal Medicine at Parker Dang, Benign prostatic hyperplasia with lower urinary tract symptoms, symptom details unspecified; Radha Velasquez MD Lower urinary tract symptoms (LUTS) [address] [facility] [place] [address] [phone] [place] [id number] (Wo rk) Social History Tobacco Use Types [...] Problems Progress Blood Blood Hypertension 133/79 No [place], Pressure < Pressure (09/27/2020 Susie Del Toro, 130/90 3:36 PM EDT) FINISH INSPECTOR documented as of this encounter Visit Diagnoses Diagnosis Benign prostatic hyperplasia with lower urinary tract symptoms, symptom details unspecified Lower urinary tract symptoms (LUTS) Other symptoms involving urinary system documented in this encounter Care Teams Salvage Mechanic Relationship Specialty Start Date End Date Parker Dang MD PCP - General General Internal Medicine 10/01/16 [facility] [place] [address] documented as of this encounter
--- OUTSIDE RECORDS SUMMARY | 2021-08-29 11:44 | XMS_ITS | Encounter Summary ---
:1960 Author Organization [facility] [place] [address] Care Team Providers Name Role Phone Parker Dang MD Primary Care Provider Reason for Visit Reason Onset Date Comments Medication Refill 03/23/2019 Encounter Details Date Type Department Care Team Description 03/23/2019 Refill Internal Medicine at Radha Hartmann H ypertension, unspecified type; [facility] Benign prostatic hyperplasia with lower urinary tract symptoms, symptom details unspecified; [address] [facility] Lower urinary tract symptoms (LUTS) [place] [address] [address] [phone] [facility] [place], [place] [address] (Wo rk) Social History Tobacco [...] place to sleep or slept in a alf (including now)? Sex Assigned at Date Recorded Male 05/03/2020 3:20 PM EDT documented as of this encounter Plan of Treatment Not on filedocumented as of this encounter Goals Goal Patient Goal Associated Recent Patient-Stated? Author Type Problems Progress Blood Blood Hypertension 133/79 No Romero, Pressure < Pressure (09/27/2020 Susie Del Toro, 130/90 3:36 PM EDT) SPECIAL EDUCATION RESOURCE TEACHER documented as of this encounter Visit Diagnoses Diagnosis Hypertension, unspecified type Benign prostatic hyperplasia with lower urinary tract symptoms, symptom details unspecified Lower urinary tract symptoms (LUTS) Other symptoms involving urinary system documented in this encounter Care Teams Lozenge Maker Helper Relationship Specialty Start Date End Date Parker Dang MD PCP - General General Internal Medicine 10/01/16 [facility] [place] [address] documented as of this encounter
--- OUTSIDE RECORDS SUMMARY | 2021-08-29 11:44 | XMS_ITS | Encounter Summary ---
:1960 Author Organization [place] [address] Care Team Providers Name Role Phone Parker Dang MD Primary Care Provider Encounter Details Date Type Department Care Team Description 04/28/2020 Telephone [place] [facility] [place] [address] Social History Tobacco Use Types Packs/Day Years [...] this encounter Miscellaneous Notes Telephone Encounter - Alessia Nair - 04/28/2020 8:38 AM EST VM left with pt to sched telehealth visit with Dr. Vee documented in this encounter Plan of Treatment Not on filedocumented as of this encounter Goals Goal Patient Goal Associated Recent Patient-Stated? Author Type Problems Progress Blood Blood Hypertension 133/79 No Romero, Pressure < Pressure (09/27/2020 Susie Alverto, 130/90 3:36 PM EDT) BENEFIT SPECIALIST documented as of this encounter Visit Diagnoses Not on filedocumented in this encounter Care Teams Store Detective Relationship Specialty Start Date End Date Parker Dang MD PCP - General General Internal Medicine 10/01/16 [facility] GENERAL [place] [address] documented as of this encounter
--- OUTSIDE RECORDS SUMMARY | 2021-08-29 11:44 | XMS_ITS | Encounter Summary ---
:1960 Author Organization [facility] [address] Care Team Providers Name Role Phone Parker Dang MD Primary Care Provider Encounter Details Date Type Department Care Team Description 05/27/2017 Telephone [place] [facility] [place] Tubbs, [place] [address] Social History Tobacco Use Types Packs/Day [...] this encounter Miscellaneous Notes Telephone Encounter - Troy Tubbs, RN - 05/27/2017 5:08 PM EDT Verified patient name and date of spoke with the pt and told him that his urine culture is positive and that he should continue with the Bactrim DS as ordered. Pt agreed. documented in this encounter Plan of Treatment Not on filedocumented as of this encounter Visit Diagnoses Not on filedocumented in this encounter Care Teams Sheet Rocker Relationship Specialty Start Date End Date Parker Dang MD PCP - General General Internal Medicine 10/01/16 [facility] [place] [address] documented as of this encounter
--- OUTSIDE RECORDS SUMMARY | 2021-08-29 11:44 | XMS_ITS | Encounter Summary ---
:1960 Author [address] [facility] [place] [address] Care Team Providers Name Role Phone Parker Dang MD Primary Care Provider Reason for Visit Reason Comments Medication Refill Encounter Details Date Type Department Care Team Description 06/01/2021 Refill Internal Medicine at Patricia Larose MD Hyperlipidemia, [facility] unspecified [address] [facility] hyperlipidemia type [facility] [place] [address] [phone] [place] [address] (Wo rk) Social History Tobacco Use Types [...] place to sleep or slept in a long-term (including now)? Sex Assigned at Date Recorded Male 05/03/2020 3:20 PM EDT documented as of this encounter Plan of Treatment Not on filedocumented as of this encounter Goals Goal Patient Goal Associated Recent Patient-Stated? Author Type Problems Progress Blood Blood Hypertension 133/79 No Romero Pressure < Pressure (09/27/2020 Susie Del Toro, 130/90 3:36 PM EDT) DATA ANALYST REPORT WRITER documented as of this encounter Visit Diagnoses Diagnosis Hyperlipidemia, unspecified hyperlipidem ia type documented in this encounter Care Teams Zoogler Relationship Specialty Start Date End Date Parker Dang MD PCP - General General Internal Medicine 10/01/16 [facility] [place] [address] documented as of this encounter
--- OUTSIDE RECORDS SUMMARY | 2021-08-29 11:44 | XMS_ITS | Encounter Summary ---
:1960 Author Organization [facility] Address [place] [address] Care Team Providers Name Role Phone Parker Dang MD Primary Care Provider Reason for Visit Reason Onset Date Comments Medication Refill 03/14/2020 Encounter Details Date Type Department Care Team Description 03/14/2020 Refill Internal Medicine at Parker Dang, Idiopathic chronic gout, left ankle and foot, with tophus (tophi); Heidi Velasquez MD Benign prostatic hyperplasia with lower urinary tract symptoms, symptom details unspecified; [address] [facility] Lower urinary tract symptoms (LUTS); [place] [address] GENERAL INTERNAL Hypertension, unspecified ty pe [phone] [place], [place] [address] (Wo rk) Social History Tobacco [...] Susie Del Toro, 130/90 3:36 PM EDT) TREE TRIMMING LINE TECHNICIAN documented as of this encounter Visit Diagnoses Diagnosis Idiopathic chronic gout, left ankle and foot, with tophus (tophi) Benign prostatic hyperplasia with lower urinary tract symptoms, symptom details unspecified Lower urinary tract symptoms (LUTS) Other symptoms involving urinary system Hypertension, unspecified type documented in this encounter Care Teams Electrical Engineering Designer Relationship Specialty Start Date End Date Parker Dang MD PCP - General General Internal Medicine 10/01/16 [facility] [place] [address] documented as of this encounter
--- OUTSIDE RECORDS SUMMARY | 2021-08-29 11:44 | XMS_ITS | Encounter Summary ---
:1960 Author Organization [facility] [place] [address] Care Team Providers Name Role Phone Parker Dang MD Primary Care Provider Reason for Visit Reason Onset Date Comments Medication Problem 12/23/2019 Encounter Details Date Type Department Care Team Description [facility] [address] [place] [address] Social History Tobacco Use Types Packs/Day Years [...] place to sleep or slept in a care home (including now)? Sex Assigned at Date Recorded Male 05/03/2020 3:20 PM EDT documented as of this encounter Miscellaneous Notes Telephone Encounter - Minnie Ratliff - 12/23/2019 12:05 PM EST Pharmacy is calling stating that the patient is very upset stating he does not have his medication. Pharmacy stated that they have not received any script to fill for this patient . Please call pharmacy back to discuss further. Telephone Encounter - Mickie Quintero - 12/23/2019 11:39 AM EST Pharmacy or caller: self Medication: Atenolol Message: Pt spoke with pharmacy and they told him they don't have any of this medication for him. I know we sent a script 11/25/19 with 3 refills. Please call pharmacy today to get this worked out for pt. Did you contact your pharmacy?: y documented in this encounter Plan of Treatment Not on filedocumented as of this encounter Goals Goal Patient Goal Associated Recent Patient-Stated? Author Type Problems Progress Blood Blood Hypertension 133/79 No Romero, Pressure < Pressure (09/27/2020 Susie Del Toro, 130/90 3:36 PM EDT) LOAD PLANNER documented as of this encounter Visit Diagnoses Diagnosis Hypertension, unspecified type documented in this encounter Care Teams Tax Agent Relationship Specialty Start Date End Date Parker Dang MD PCP - General General Internal Medicine 10/01/16 [facility] [place] [address] documented as of this encounter
--- OUTSIDE RECORDS SUMMARY | 2021-08-29 11:44 | XMS_ITS | Encounter Summary ---
:1960 Author Organization [facility] [place] [address] Care Team Providers Name Role Phone Parker Dang MD Primary Care Provider Reason for Visit Reason Comments Medication Refill Encounter Details Date Type Department Care Team Description 03/17/2018 Refill [place] [facility] Gina Gutierrez Gout, unspecified cause, uns pecified chronicity, unspecified site; [facility] Xavier Garcia DO Proteinuria, unspecified type; [place] [address] [facility] Gynecomastia [phone] RHEUMATOLOGY DEP . [place], [place] [address] (Wo rk) Social History Tobacco [...] place to sleep or slept in a residential (including now)? Sex Assigned at Date Recorded Male 05/03/2020 3:20 PM EDT documented as of this encounter Plan of Treatment Not on filedocumented as of this encounter Goals Goal Patient Goal Associated Recent Patient-Stated? Author Type Problems Progress Blood Blood Hypertension 133/79 No Romero, Pressure < Pressure (09/27/2020 Susie Del Toro, 130/90 3:36 PM EDT) SHELLFISH SORTER documented as of this encounter Visit Diagnoses Diagnosis Gout, unspecified cause, unspecified chr onicity, unspecified site Proteinuria, unspecified type Gynecomastia Hypertrophy of breast documented in this encounter Care Teams Application Architect Relationship Specialty Start Date End Date Parker Dang MD PCP - General General Internal Medicine 10/01/16 [facility] [place] [address] documented as of this encounter
--- OUTSIDE RECORDS SUMMARY | 2021-08-29 11:44 | XMS_ITS | Encounter Summary ---
:1960 Author Organization [place] [address] Care Team Providers Name Role Phone Parker Dang MD Primary Care Provider Reason for Visit Reason Comments Other 2nd op dev-sep Consultation (Routine) - Closed Specialty Diagnoses / Procedures Referred By Contact Refer red To Contact Otolaryngology Diagnoses Epistaxis Nasal septal defect Gina Gutierrez Smith, Richard B III, DO MD [facility] RHEUMATOLOGY [place]PT[place] [address] [place] [address] Fax: Referral ID Status Reason Start Date Expiration Date Visits V isits Requested Authorized [id number] Closed Consult, 11/12/2018 11/12/2019 1 1 Test & Treat Encounter Details Date Type Department Care Team Description 01/28/2019 Office Visit Otolaryngology at Jaspal Martinez Epistaxis; [facility] Xavier ortega III, [place] [address] [facility] [phone] OTOLARYNGOLOGY [place], [place] [address] (Wo rk) Social History Tobacco [...] place to sleep or slept in a [facility] (including now)? Sex Assigned at Date Recorded Male 05/03/2020 3:20 PM EDT documented as of this encounter Last Filed Vital Signs Vital Sign Reading Time Taken Comments Blood Pressure - - Pulse - - Temperature - - Respiratory Rate - - Oxygen Saturation - - Inhaled Oxygen Concentration - - Weight 89.8 kg (198 lb) 01/28/2019 1:08 PM EST Height 177.8 cm (5' 10) 01/28/2019 1:08 PM EST Body Mass Index 28.41 01/28/2019 1:08 PM EST documented in this encounter Progress Notes Jaspal Britton III, MD - 01/28/2019 1:15 PM EST Otolaryngology Outpatient Consultation Note This note created with Key Ring speech recognition software. Date of Visit: 01/28/2019 Location of Visit: Otolaryngology Clinic, [facility] Patient: Mohit Dotson ([id number]; 1960) Primary Care Provider: Parker Dang MD Referring Provider: Gina Gutierrez Reason for Visit: Mohit is a 59 y.o. male seen at the request of Gina Gutierrez in consultation for nasal issues and epistaxis.. History of Present Illness: Mohit reports that in June of last year he had a septoplasty, and afterthat has had difficulty with repeated right sided epistaxis. He also feels there is a channel in his right nostril which should no b there. He has almost daily epistaxis, and has had multiple cauteries. He does not use humidification at home, and does not use nasal humidification. Past Medical History: No past medical history on file. Past Surgical History: No past surgical history on file. Medications: Current Outpatient Medications on File Prior to Visit Medication Sig Dispense Refill ??? allopurinol (ZYLOPRIM) 300 mg Tablet Take 1 tablet by mouth daily. 90 tablet 3 ??? ergocalciferol (VITAMIN D) 50,000 unit Capsule Take 1 capsule by mouth once a week. 13 capsule 3 ??? atenolol (TENORMIN) 50 mg Tablet Take 1 tablet by mouth daily. Indications: high blood pressure 90 tablet 3 ??? finasteride (PROSCAR) 5 mg Tablet Take 1 tablet by mouth daily. Indications: BPH w/LUTS 90 tablet 3 ??? atorvastatin (LIPITOR) 40 mg Tablet Take 1 tablet by mouth daily. Indications: hyperlipidemia 90tablet 3 ??? aspirin 81 mg Tablet, Chewable Take 81 mg by mouth daily. 90 tablet 3 ??? colchicine (COLCRYS) 0.6 mg Tablet Take 1 tablet by mouth 2 times daily as needed. Reported on 01/31/2016 60 tablet 3 ??? diclofenac (VOLTAREN) 1 % Gel Apply 2 g topically 4 times daily. 100 g 3 ??? [DISCONTINUED] VITAMIN D 50,000 unit Capsule TAKE 1 CAPSULE BY MOUTH ONCE A WEEK 12 capsule 1 ??? [DISCONTINUED] allopurinol (ZYLOPRIM) 300 mg Tablet TAKE ONE TABLET BY MOUTH EVERY DAY 90 tablet1 No current facility-administered medications on file prior to visit. Allergies: Patient has no known allergies. Social History: [place] [facility] [address], Tobacco:No Alcohol:Yes Other: Immunizations UTD. Family History: Family History Problem Relation Age of Onset ??? Esophageal Cancer Father ??? Cancer Father ??? Coronary Artery Disease Maternal Grandfather ??? Endocrine Disorder Maternal Grandfather ??? Heart Disease Maternal Grandfather ??? Hyperlipidemia Maternal Grandfather ??? Diabetes Neg Hx ??? Thyroid Disease Neg Hx Review of Systems: Pertinent positive findings discussed above. No other findings on review of constitutional, visual, cardiovascular, respiratory, gastrointestinal, genitourinary, musculoskeletal, dermatologic, neurological, psychiatric, endocrine, hematologic or immunologic systems. Physical Examination: Vitals: Height 177.8 cm (5' 10), weight 89.8 kg (198 lb). General: No acute distress. Face: Full and symmetric facial movement. No dysmorphic facial features. Eyes: Periocular structures and conjunctiva healthy without lesions. Pupils are equal, round, and reactive to light. Extraocular movement is full and intact. No dysconjugate gaze. No evidence of nystagmus. Ears: Auricles symmetric without lesions. External auditory canals clear. Right tympanic membrane normal, right middle ear normal. Left tympanic membrane normal, left middle ear normal. Nose: Patent anteriorly with adequate airflow, healthy pink mucosa. Anterior septal vessel right side is epistaxis source. Septum shows residual deviation with a rightward projecting septal spur impacting the inferior turbinate. . Inferior turbinates normal. Mouth: Lips and gingiva pink, moist, without lesions. Dentition healthy. Tongue and floor of mouth soft without lesions or masses. Hard palate without lesions. Pharynx: Soft palate without lesions. Uvula is intact. Oropharynx symmetric. Larynx: Vocal mobility and morphology normal. Neck: Soft, supple, without significant lymphadenopathy. Thyroid gland without masses or asymmetry. Trachea midline without deviation. Lymphatic: Negative for additional peripheral lymphadenopathy or lymphedema. Neurologic: Cranial nerves II-XII intact and symmetric. Procedure - Nasal Endoscopy Topical anesthetic applied to the nasal cavity. Patient tolerated the procedure well without complication. Findings: Nasal Cavity: Residual septal spurring impacting right inferior turbinate, anterior septal vessel right, cauterized. Nasopharynx: Normal Impression: Anterior epistaxis largely due to seasonal dryness. Recommendations: Humidification strategies were discussed. We will see him again if the epistaxis recurs. documented in this encounter Plan of Treatment Scheduled Referrals Name Type Priority Associated Diagnoses Order S chedule Referral to ENT Outpatient Referral Routine Epistaxis Ordered: 11/12/2018 Nasal septal defect documented as of this encounter Goals Goal Patient Goal Associated Recent Patient-Stated? Author Type Problems Progress Blood Blood Hypertension 133/79 No Romero, Pressure < Pressure (09/27/2020 Susie Del Toro, 130/90 3:36 PM EDT) LEDGER CLERK documented as of this encounter Visit Diagnoses Diagnosis Epistaxis Nasal dryness Other diseases of nasal cavity and sinus es documented in this encounter Care Teams Orthopedic Radiologic Technologist Relationship Specialty Start Date End Date Parker Dang MD PCP - General General Internal Medicine 10/01/16 [facility] [place] [address] documented as of this encounter
--- OUTSIDE RECORDS SUMMARY | 2021-08-29 11:44 | XMS_ITS | Encounter Summary ---
:1960 Author Organization [facility] [place] [address] Care Team Providers Name Role Phone Parker Dang MD Primary Care Provider Reason for Visit Reason Onset Date Comments Medication Refill 12/20/2019 Encounter Details Date Type Department Care Team Description 12/20/2019 Refill Internal Medicine at Parker Dang, Hypertension, [facility] unspecified type [address] [place] [place] [address] GENERAL INTERNAL [phone] MED-[place], [place] [address] (Wo rk) Social History Tobacco [...] place to sleep or slept in a snf (including now)? Sex Assigned at Date Recorded Male 05/03/2020 3:20 PM EDT documented as of this encounter Plan of Treatment Not on filedocumented as of this encounter Goals Goal Patient Goal Associated Recent Patient-Stated? Author Type Problems Progress Blood Blood Hypertension 133/79 No [place], Pressure < Pressure (09/27/2020 Susie Del Toro, 130/90 3:36 PM EDT) PACS ADMINISTRATOR documented as of this encounter Visit Diagnoses Diagnosis Hypertension, unspecified type documented in this encounter Care Teams Cnc Supervisor Relationship Specialty Start Date End Date Parker Dang MD PCP - General General Internal Medicine 10/01/16 [facility] [place] [address] documented as of this encounter
--- OUTSIDE RECORDS SUMMARY | 2021-08-29 11:44 | XMS_ITS | Encounter Summary ---
:1960 Author Organization [facility] Address [facility] [address] [place] [address] Care Team Providers Name Role Phone Parker Dang MD Primary Care Provider Encounter Details Date Type Department Care Team Description 03/27/2021 Refill Internal Medicine at Parker Dang, Gout, unspecified [address] cause, unspecified [address] [facility] chronicity, unspecified [facility] [place] [address] [phone] [place] [address] (Wo rk) Social History Tobacco Use Types [...] this encounter Miscellaneous Notes Telephone Encounter - Shaunna Liang - 03/27/2021 12:33 PM EST Patient has 2 medication left. Patient is at the pharmacy. Please barboza. documented in this encounter Plan of Treatment Not on filedocumented as of this encounter Goals Goal Patient Goal Associated Recent Patient-Stated? Author Type Problems Progress Blood Blood Hypertension 133/79 No [place], Pressure < Pressure (09/27/2020 Susie L, 130/90 3:36 PM EDT) KEYCASE ASSEMBLER documented as of this encounter Visit Diagnoses Diagnosis Gout, unspecified cause, unspecified chr onicity, unspecified site documented in this encounter Care Teams Bristle Machine Operator Relationship Specialty Start Date End Date Parker Dang MD PCP - General General Internal Medicine 10/01/16 [facility] [place] [address] documented as of this encounter
--- OUTSIDE RECORDS SUMMARY | 2021-08-29 11:44 | XMS_ITS | Encounter Summary ---
:1960 Author Organization [facility] Address [facility] [address] [place] [address] Care Team Providers Name Role Phone Parker Dang MD Primary Care Provider Reason for Visit Reason Comments Medication Refill Encounter Details Date Type Department Care Team Description 03/21/2021 Refill Internal Medicine at Parker Dang, Idiopathic chronic [address] gout, left ankle and [address] [facility] [address] esqueda, with [facility] INTERNAL ([facility]) [place] [address] [phone] [place] [address] (Wo rk) Social History Tobacco Use Types [...] Susie Del Toro, 130/90 3:36 PM EDT) DIRECTOR OF CATERING documented as of this encounter Visit Diagnoses Diagnosis Idiopathic chronic gout, left ankle and foot, with tophus (tophi) documented in this encounter Care Teams Knife Setter Assembler Relationship Specialty Start Date End Date Parker Dang MD PCP - General General Internal Medicine 10/01/16 [facility] [place] [address] documented as of this encounter
--- OUTSIDE RECORDS SUMMARY | 2021-08-29 11:44 | XMS_ITS | Encounter Summary ---
:1960 Author Organization [facility] [place] [address] Care Team Providers Name Role Phone Parker Dang MD Primary Care Provider Reason for Visit Reason Comments Annual Exam Shingles follow up (improved ); medication check; lab work (pended by rheumatology) Encounter Details Date Type Department Care Team Description 12/03/2017 Office Visit Internal Medicine at Parker Dang [facility] physical exam; Heidi Mendoza MD Hyperlipidemia, unspecified hyperlipidem ia type; [address] [facility] [place] [address] GENERAL INTERNAL [phone] [place], [place] [address] Social History Tobacco Use Types [...] Sign Reading Time Taken Comments Blood Pressure 135/71 12/03/2017 2:58 PM EDT Pulse 67 12/03/2017 2:58 PM EDT Temperature 36.8 ??C (98.2 ??F) 12/03/2017 2:58 PM EDT Respiratory Rate - - Oxygen Saturation 98% 12/03/2017 2:58 PM EDT Inhaled Oxygen Concentration - - Weight 90.3 kg (199 lb) 12/03/2017 2:58 PM patient repo rted EDT Height 175.4 cm (5' 9.06) 12/03/2017 2:58 PM EDT Body Mass Index 29.34 12/03/2017 2:58 PM EDT documented in this encounter Progress Notes Parker Dang MD - 12/03/2017 3:00 PM EDT Subjective: Patient ID: Mohit Dotson is a 57 y.o. male. HPI Here for annual exam. Since I saw him last, Vladimir had a bout of herpes zoster and says it was 'pretty mild.' Saw his director food safety today before this appointment and 'everything is good there.' His gout is in good control. I've come a long way in the last year or two. Continues on allopurinol 300 mg daily. Hypertension: Continues atenolol for this. BPH: continues on tamsulosin and finasteride. Reports no problems; 'it's been the same.' No burning or symptoms of UTI. Diet: low carb diet; lots of salads Exercise: treadmill every day; has lost some weight (deliberately) since May Lipids: UTD Colonoscopy: UTD Other age appropriate screenings: Influenza: UTD Other Immunizations: due for Shingrix Depression: PHQ9 Questionnaires Data (Clinic and Pt Entered): Today's value PHQ-9 QUESTIONNAIRE (AMB) 12/03/2017 PHQ - 9 Score (Clinic) - Little interest or pleasure (Clinic) Not at all Little interest or pleasure (Patient) - Down, depressed, hopeless (Clinic) Not at all Down, depressed, hopeless (Patient) - Trouble sleeping (Clinic) - Tired or no energy (Clinic) - Poor appetite or overeating (Clinic) - Feeling like a failure (Clinic) - Trouble concentrating (Clinic) - Moving or speaking slowly (Clinic) - Would be better off (Clinic) - How difficult are the problems (Clinic) - Review of Systems Constitutional: Negative for chills and fever. HENT: Positive for trouble swallowing. For years, he often struggles to swallow the first bite of solids at a meal but it then resolves. Eyes: Negative for visual disturbance. Respiratory: Negative for cough and shortness of breath. Cardiovascular: Negative for chest pain. Gastrointestinal: Negative for blood in stool, constipation, diarrhea, nausea and vomiting. Skin: Negative for rash. Neurological: Negative for dizziness, tremors, light-headedness and headaches. Hematological: Does not bruise/bleed easily. Objective: Physical Exam Constitutional: The patient appears well-developed and well-nourished. HENT: Normal B/L otoscopic exam. Moist oral mucosa. Head: Normocephalic. Eyes: Pupils are equal, round, and reactive to light. Neck: Normal range of motion. Neck supple. No thyromegaly present. Cardiovascular: Normal rate, regular rhythm and normal heart sounds. Pulmonary/Chest: Effort normal and breath sounds normal. Abdominal: Soft. Bowel sounds are normal. The patient exhibits no distension and no mass. There is no tenderness. There is no rebound and no guarding. Neurological: The patient is alert with normal reflexes in bilateral upper and lower DTRs. 5/5 strength in bilateral upper and lower extremity major muscle groups; no focal weakness or sensory deficitsnoted. Skin: Skin is warm and dry. No rash noted. Psychiatric: The patient has a normal mood and affect, and normal behavior. Assessment and Plan: 57 yo M with history of gout, hypertension, hyperlipidemia, BPH with LUTS (possible OOB) here for annual exam and doing quite well. - Shingrix vaccine in 2019 - flu shot is UTD - hypertension: stable on atenolol - BPH with LUTS: stable on tamsulosin and finasteride; PSA is UTD and WNL. Partly his symptoms may be from high detrusor muscle activity (had low PVRs on urodynamic testing), and Dr. Dawn suggested he may benefit from a trial of an anticholinergic or a B3 agonist documented in this encounter Plan of Treatment Not on filedocumented as of this encounter Goals Goal Patient Goal Associated Recent Patient-Stated? Author Type Problems Progress Blood Blood Hypertension 133/79 No [place], Pressure < Pressure (09/27/2020 Susie L, 130/90 3:36 PM EDT) RISK ANALYST documented as of this encounter Visit Diagnoses Diagnosis Annual physical exam Routine general medical examination at a health care facility Hyperlipidemia, unspecified hyperlipidem ia type Essential hypertension Unspecified essential hypertension documented in this encounter Care Teams Car Icer Relationship Specialty Start Date End Date Parker Dang MD PCP - General General Internal Medicine 10/01/16 [facility] [place] [address] documented as of this encounter
--- OUTSIDE RECORDS SUMMARY | 2021-08-29 11:44 | XMS_ITS | Encounter Summary ---
:1960 Author Organization [facility] [place] [address] Care Team Providers Name Role Phone Parker Dang MD Primary Care Provider Reason for Visit Reason Onset Date Comments Medication Refill 02/22/2018 Encounter Details Date Type Department Care Team Description 02/22/2018 Refill Internal Medicine at Parker Dang, Hyperlipidemia, unspecified hyperlipidemia type; [facility] Ron PADRON Idiopathic chronic gout, left ankle and foot, with tophus (tophi) [address] [place] [address] [address] [phone] GENERAL INTERNAL [address] [place], [place] [address] (Wo rk) Social History Tobacco [...] place to sleep or slept in a fci (including now)? Sex Assigned at Date Recorded Male 05/03/2020 3:20 PM EDT documented as of this encounter Plan of Treatment Not on filedocumented as of this encounter Goals Goal Patient Goal Associated Recent Patient-Stated? Author Type Problems Progress Blood Blood Hypertension 133/79 No [place], Pressure < Pressure (09/27/2020 Susie Del Toro, 130/90 3:36 PM EDT) LOCK OPERATOR documented as of this encounter Visit Diagnoses Diagnosis Hyperlipidemia, unspecified hyperlipidem ia type Idiopathic chronic gout, left ankle and foot, with tophus (tophi) documented in this encounter Care Teams Parker Relationship Specialty Start Date End Date Parker Dang MD PCP - General General Internal Medicine 10/01/16 [facility] [place] [address] documented as of this encounter
--- OUTSIDE RECORDS SUMMARY | 2021-08-29 11:44 | XMS_ITS | Encounter Summary ---
:1960 Author Organization [facility] [place] [address] Care Team Providers Name Role Phone Parker Dang MD Primary Care Provider Reason for Visit Reason Onset Date Comments Other 06/14/2017 Encounter Details Date Type Department Care Team Description 06/14/2017 Telephone Internal Medicine at [facility] Annmarie Ross Other [address] [place] [address] Social History Tobacco Use Types Packs/Day [...] place to sleep or slept in a group home (including now)? Sex Assigned at Date Recorded Male 05/03/2020 3:20 PM EDT documented as of this encounter Miscellaneous Notes Telephone Encounter - VadnanaAnnmarie michael - 06/14/2017 12:16 PM EDT Message: pt called to let Dr. Dang know he got his labs drawn and we should receive the results within a few hours. Please call back with any questions. Caller and relationship (if other than patient-full name): self Best time to call back: any Ok to leave a message: [y] Ok to send my- message: [] Offered Appointment: MA/Nurse contacted via: Message: y Call: n Pager: n documented in this encounter Plan of Treatment Not on filedocumented as of this encounter Goals Goal Patient Goal Associated Recent Patient-Stated? Author Type Problems Progress Blood Blood Hypertension 133/79 No [place], Pressure < Pressure (09/27/2020 Susie Del Toro, 130/90 3:36 PM EDT) FASHION MODEL documented as of this encounter Visit Diagnoses Not on filedocumented in this encounter Care Teams Instrument Inspector Relationship Specialty Start Date End Date Parker Dang MD PCP - General General Internal Medicine 10/01/16 [facility] [place] [address] documented as of this encounter
--- OUTSIDE RECORDS SUMMARY | 2021-08-29 11:44 | XMS_ITS | Encounter Summary ---
:1960 Author Organization [facility] [place] [address] Care Team Providers Name Role Phone Parker Dang MD Primary Care Provider Reason for Visit Reason Onset Date Comments Medication Refill 03/23/2019 Encounter Details Date Type Department Care Team Description 03/23/2019 Refill Rheumatology at [facility] Gina Gutierrez Gout, unspecified [facility] Xavier Garcia DO cause, [place] [address] [facility] chronicity, unspecified [phone] rust RHEUMATOLOGY [place], [place] [address] (Wo rk) Social History Tobacco [...] place to sleep or slept in a senior living (including now)? Sex Assigned at Date Recorded Male 05/03/2020 3:20 PM EDT documented as of this encounter Plan of Treatment Not on filedocumented as of this encounter Goals Goal Patient Goal Associated Recent Patient-Stated? Author Type Problems Progress Blood Blood Hypertension 133/79 No [place], Pressure < Pressure (09/27/2020 Susie Del Toro, 130/90 3:36 PM EDT) MEAT SOAKER documented as of this encounter Visit Diagnoses Diagnosis Gout, unspecified cause, unspecified chr onicity, unspecified site documented in this encounter Care Teams Employment Appeals Examiner Relationship Specialty Start Date End Date Parker Dang MD PCP - General General Internal Medicine 10/01/16 [facility] [place] [address] documented as of this encounter
--- OUTSIDE RECORDS SUMMARY | 2021-08-29 11:44 | XMS_ITS | Encounter Summary ---
:1960 Author Organization [facility] [place] [address] Care Team Providers Name Role Phone Parker Dang MD Primary Care Provider Reason for Visit Reason Comments Medication Refill Encounter Details Date Type Department Care Team Description 03/14/2020 Refill Internal Medicine at Parker Dang, Benign prostatic hyperplasia with lower urinary tract symptoms, symptom details unspecified; Heidi Velasquez MD Lower urinary tract symptoms (LUTS) [address] [place] [address] GENERAL INTERNAL [phone] [place], [place] [address] (Wo rk) Social History Tobacco [...] place to sleep or slept in a usp (including now)? Sex Assigned at Date Recorded Male 05/03/2020 3:20 PM EDT documented as of this encounter Plan of Treatment Not on filedocumented as of this encounter Goals Goal Patient Goal Associated Recent Patient-Stated? Author Type Problems Progress Blood Blood Hypertension 133/79 No [place], Pressure < Pressure (09/27/2020 Susie Del Toro, 130/90 3:36 PM EDT) ASSISTANT THERAPY AIDE documented as of this encounter Visit Diagnoses Diagnosis Benign prostatic hyperplasia with lower urinary tract symptoms, symptom details unspecified Lower urinary tract symptoms (LUTS) Other symptoms involving urinary system documented in this encounter Care Teams Charging Car Operator Relationship Specialty Start Date End Date Parker Dang MD PCP - General General Internal Medicine 10/01/16 [facility] [place] [address] documented as of this encounter
--- OUTSIDE RECORDS SUMMARY | 2021-08-29 11:44 | XMS_ITS | Encounter Summary ---
:1960 Author Organization [facility] [address] Care Team Providers Name Role Phone Parker Dang MD Primary Care Provider Reason for Visit Reason Onset Date Comments Medication Refill 09/20/2020 Encounter Details Date Type Department Care Team Description 09/20/2020 Refill Internal Medicine at Parker Dang, Benign prostatic hyperplasia with lower urinary tract symptoms, symptom details unspecified; Heidi Velasquez MD Lower urinary tract symptoms (LUTS) [address] [facility] [place] [address] GENERAL INTERNAL [phone] [address] [place], [place] [address] (Wo rk) Social History Tobacco [...] place to sleep or slept in a chcf (including now)? Sex Assigned at Date Recorded Male 05/03/2020 3:20 PM EDT documented as of this encounter Plan of Treatment Not on filedocumented as of this encounter Goals Goal Patient Goal Associated Recent Patient-Stated? Author Type Problems Progress Blood Blood Hypertension 133/79 No [place], Pressure < Pressure (09/27/2020 Susie Del Toro, 130/90 3:36 PM EDT) PRESSURE WELDER documented as of this encounter Visit Diagnoses Diagnosis Benign prostatic hyperplasia with lower urinary tract symptoms, symptom details unspecified Lower urinary tract symptoms (LUTS) Other symptoms involving urinary system documented in this encounter Care Teams Executive Community Planning Relationship Specialty Start Date End Date Parker Dang MD PCP - General General Internal Medicine 10/01/16 [facility] GENER[place] [address] documented as of this encounter
--- OUTSIDE RECORDS SUMMARY | 2021-08-29 11:44 | XMS_ITS | Encounter Summary ---
:1960 Author Organization [place] [address] Care Team Providers Name Role Phone Parker Dang MD Primary Care Provider Reason for Visit Reason Onset Date Comments Medication Refill 08/30/2017 Encounter Details Date Type Department Care Team Description 08/30/2017 Refill Rheumatology at [facility] Douglas Fournier, [place] [address] Social History Tobacco Use Types Packs/Day [...] Susie Del Toro, 130/90 3:36 PM EDT) MILANESE KNITTING MACHINE OPERATOR documented as of this encounter Visit Diagnoses Not on filedocumented in this encounter Care Teams Shell Worker Relationship Specialty Start Date End Date Parker Dang MD PCP - General General Internal Medicine 10/01/16 [facility] GENERAL [place] [address] documented as of this encounter
--- OUTSIDE RECORDS SUMMARY | 2021-08-29 11:44 | XMS_ITS | Encounter Summary ---
:1960 Author Organization [facility] [place] [address] Care Team Providers Name Role Phone Parker Dang MD Primary Care Provider Encounter Details Date Type Department Care Team Description 08/03/2019 TH Visit Rheumatology at [facility] Brenda, Primary osteoarthritis of mary th knees; (TeleHealth) [facility] Gina Garcia DO Gout, unspecified cause, unspecified chr onicity, unspecified site; [facility] Plantar fasciitis of left fo [place], [place] CENTER [address] RHEUMATOLOGY [phone] [place] [address] Social History Tobacco Use Types Packs/Day Years [...] encounter Progress Notes Gina Gutierrez DO - 08/03/2019 12:00 PM EDT Outpatient Rheumatology Followup-Telephone encounter Problem List: 1. Gout :Was off allopurinol for 10 years and is back on it starting in 2015.taking allopurinol 300 mg daily. Last uric acid 02/2016 was 4.1 2. OA. 3. TIA 4. CKD - GFR 46-53 He states that he has always had joint pains that he thinks were normal and tolerable. Has other chronic joint pains that feel different than his gout. 5. Low vitamin D (28 in May 2016) 6. Had surgery for deviated septum and epistaxis on July [address] Hand in [place] 7. Shingles Interim History: Last seen 6 months ago. No gout attacks. Taking allopurinol 300 mg daily. His left shoulder still bothers him, the right a little bit. Not enough to do anything about either of them. Weight is stable at 200 pounds. He is trying to stay active working on his barn and his garden. Low vitamin D: has been taking weekly vitamin D. He has left heel pain - feels like he stepped on something. No injury. Feels terrible in the am whenhe first gets up. Using voltaren gel as needed for various joint pains. PMH: CVA, HTN, hyperlipidemia, CKD, gout, shingles Social Hx: never smoker, Family Hx: father had gout Physical Exam: Not repeated today Assessment and Plan: This was a counseling dominated visit. I spent 25 minutes in discussion of the followin yo male with gout and osteoarthritis. Now with left plantar fasciitis He will continue taking 300 mg of allopurinol. I refilled his diclofenac gel. We discussed the treatment of plantar fasciitis. Stretching the foot, ice, wearing shoes, heel cup or shoe insert, etc. If it is not getting better he will need a referral to PT or Podiatry. RTC in 3 months with Vincent Vee documented in this encounter Plan of Treatment Not on filedocumented as of this encounter Goals Goal Patient Goal Associated Recent Patient-Stated? Author Type Problems Progress Blood Blood Hypertension 133/79 No [place], Pressure < Pressure (09/27/2020 Susie Del Toro, 130/90 3:36 PM EDT) SPORTS BETTING MANAGER documented as of this encounter Visit Diagnoses Diagnosis Primary osteoarthritis of both knees Primary localized osteoarthrosis, lower leg Gout, unspecified cause, unspecified chr onicity, unspecified site Plantar fasciitis of left foot Plantar fascial fibromatosis documented in this encounter Care Teams Stave Grader Relationship Specialty Start Date End Date Parker Dang MD PCP - General General Internal Medicine 10/01/16 [facility] [place] [address] documented as of this encounter
--- OUTSIDE RECORDS SUMMARY | 2021-08-29 11:44 | XMS_ITS | Encounter Summary ---
:1960 Author Organization [facility] [place] [address] Care Team Providers Name Role Phone Parker Dang MD Primary Care Provider Reason for Visit Reason Comments Medication Refill Encounter Details Date Type Department Care Team Description 12/05/2017 Refill Rheumatology at [facility] Gina Gutierrez, [facility] [place] [address] RHEUMATOLOGY DEPT. [phone] [place], [place] [address] (Wo rk) Social History Tobacco [...] Susie Del Toro, 130/90 3:36 PM EDT) CANDY COUNTER CLERK documented as of this encounter Visit Diagnoses Not on filedocumented in this encounter Care Teams Roads Supervisor Relationship Specialty Start Date End Date Parker Dang MD PCP - General General Internal Medicine 10/01/16 [facility] [place] [address] documented as of this encounter
--- OUTSIDE RECORDS SUMMARY | 2021-08-29 11:44 | XMS_ITS | Encounter Summary ---
:1960 Author Organization [facility] [place] [address] Care Team Providers Name Role Phone Parker Dang MD Primary Care Provider Reason for Visit Reason Onset Date Comments Medication Refill 12/05/2019 Encounter Details Date Type Department Care Team Description 12/05/2019 Refill Internal Medicine at Parker Dang, Hypertension, [facility] unspecified type [address] [facility] [place] [address] GENERAL INTERNAL [phone] MED[place], [place] [address] (Wo rk) Social History Tobacco [...] Problems Progress Blood Blood Hypertension 133/79 No [place], Pressure < Pressure (09/27/2020 Susie Del Toro, 130/90 3:36 PM EDT) CHANGE MANAGEMENT COORDINATOR documented as of this encounter Visit Diagnoses Diagnosis Hypertension, unspecified type documented in this encounter Care Teams Tow Feeder Relationship Specialty Start Date End Date Parker Dang MD PCP - General General Internal Medicine 10/01/16 [facility] [place] [address] documented as of this encounter
--- OUTSIDE RECORDS SUMMARY | 2021-08-29 11:44 | XMS_ITS | Encounter Summary ---
:1960 Author Organization [facility] [place] [address] Care Team Providers Name Role Phone Parker Dang MD Primary Care Provider Reason for Visit Reason Comments Medication Refill Encounter Details Date Type Department Care Team Description 12/05/2019 Refill Internal Medicine at Parker Dang, Benign prostatic hyperplasia with lower urinary tract symptoms, symptom details unspecified; Heidi Velasquez MD Lower urinary tract symptoms (LUTS) [address] [facility] [facility] [place] [address] GENERAL INTERNAL [phone] MED[place], [place] [address] (Wo rk) Social History Tobacco [...] (09/27/2020 Susie Alverto, 130/90 3:36 PM EDT) NON LINEAR EDITOR documented as of this encounter Visit Diagnoses Diagnosis Benign prostatic hyperplasia with lower urinary tract symptoms, symptom details unspecified Lower urinary tract symptoms (LUTS) Other symptoms involving urinary system documented in this encounter Care Teams Brilliandeer Looper Relationship Specialty Start Date End Date Parker Dang MD PCP - General General Internal Medicine 10/01/16 [facility] [place] [address] documented as of this encounter
--- OUTSIDE RECORDS SUMMARY | 2021-08-29 11:44 | XMS_ITS | Encounter Summary ---
:1960 Author Organization [facility] [place] [address] Care Team Providers Name Role Phone Parker Dang MD Primary Care Provider Reason for Visit Reason Comments Medication Refill Encounter Details Date Type Department Care Team Description 11/25/2019 Refill Internal Medicine at Parker Dang, Hypertension, [facility] unspecified type [address] [facility] [place] [address] GENERAL INTERNAL [phone] [place], [place] [address] (Wo rk) Social History Tobacco [...] Susie Del Toro, 130/90 3:36 PM EDT) TRAVEL SALES CONSULTANT documented as of this encounter Visit Diagnoses Diagnosis Hypertension, unspecified type documented in this encounter Care Teams Microsystems Engineer Relationship Specialty Start Date End Date Parker Dang MD PCP - General General Internal Medicine 10/01/16 [facility] [place] [address] documented as of this encounter
--- OUTSIDE RECORDS SUMMARY | 2021-08-29 11:44 | XMS_ITS | Encounter Summary ---
:1960 Author Organization [place] [id number] Care Team Providers Name Role Phone Parker Dang MD Primary Care Provider Reason for Referral Consultation (Routine) - Closed Specialty Diagnoses / Procedures Referred By Contact Refer red To Contact Dermatology Diagnoses Changing skin lesion Parker Dang MD [facility] Dermatology [facility] D R [address] GENERAL INTERNAL [place] [address] [phone] [place] [id number] Referral ID Status Reason Start Date Expiration Date Visits V isits Requested Authorized [id number] Closed Consult, 09/27/2020 09/27/2021 1 1 Test & Treat Reason for Visit Reason Comments Annual Exam Encounter Details Date Type Department Care Team Description 09/27/2020 Office Visit Internal Medicine at Parker Dang, Annual physical exam; Radha Velasquez MD Benign prostatic hyperplasia with lower urinary tract symptoms, symptom details unspecified; [address] [facility] Mixed hyperlipidemia; [facility] Idiopathic gout of multiple sites, unspe cified chronicity; [place] [address] GENERAL INTERNAL Essential hypertension; [phone] Anal bleeding; [place], [place] [address] Prostate cancer screening; [phone] (Wo rk) Changing skin lesion Social History Tobacco Use Types Packs/Day Years [...] ??F) 09/27/2020 3:36 PM EDT Respiratory Rate - - Oxygen Saturation 96% 09/27/2020 3:36 PM EDT Inhaled Oxygen Concentration - - Weight 93.8 kg (206 lb 12.8 09/27/2020 3:36 PM with melissa es on oz) EDT Height 176.8 cm (5' 9.61) 09/27/2020 3:36 PM with shoe s on EDT Body Mass Index 30.01 09/27/2020 3:36 PM EDT documented in this encounter Patient Instructions Patient InstructionsParker Dang MD - 09/27/2020 3:40 PM EDT Images from the original note were not included. - hemorrhoidal pain, discomfort: trial of hydrocortisone suppositories; if no improvement in 4 weeks, will arrange for colonoscopy (early - he is due for screening colo next year). If Anusol is expensive at [facility], let me know and I will send Rx to [facility] and you can use GoodRx coupon there - low back pain: this sounds like coccydynia or facet arthropathy. Start with stretches, exercises (provided). If no improvement gradually with this approach, contact me and we will obtain lumbar/coccygeal XR. Patient Education Coccyx Pain: Care Instructions Your Care Instructions The coccyx is your tailbone. You can have pain in your tailbone from a fall or other injury. and childbirth also can cause tailbone pain. Sometimes, the cause of pain is not known. A tailboneinjury causes pain when you sit, especially when you slump or sit on a hard seat. Straining to have a bowel movement also can be very painful. Tailbone injuries can take several months to heal, but in some cases the pain goes even longer. You can take steps at home to ease the pain. In some cases, a doctor injects a corticosteroid medicine into the coccyx to reduce swelling and pain. Follow-up care is a vargas part of your treatment and safety. Be sure to make and go to all appointments, and call your doctor if you are having problems. It's also a good idea to know your test results and keep a list of the medicines you take. How can you care for yourself at home? ?? Take pain medicines exactly as directed. ? If the doctor gave you a prescription medicine for pain, take it as prescribed. ? If you are not taking a prescription pain medicine, take an ucni-ohp-mcxacsr medicine to reduce pain. ?? Put ice or a cold pack on your tailbone for 10 to 20 minutes at a time. Try to do this every 1 to2 hours for the next 3 days (when you are awake) or until the swelling goes down. Put a thin cloth between the ice and your skin. ?? About 2 or 3 days after your injury, you can alternate ice and heat. To soothe the tailbone area,take a warm bath for 20 minutes, 3 or 4 times a day. ?? Sit on soft, padded surfaces. A doughnut-shaped pillow can take pressure off the tailbone. ?? Avoid constipation, because straining to have a bowel movement will increase your tailbone pain. ? Include fruits, vegetables, beans, and whole grains in your diet each day. These foods are high infiber. ? Drink plenty of fluids. If you have kidney, heart, or liver disease and have to limit fluids, talkwith your doctor before you increase the amount of fluids you drink. ? Get some exercise every day. Build up slowly to 30 to 60 minutes a day on 5 or more days of the week. ? Take a fiber supplement, such as Citrucel or Metamucil, every day if needed. Read and follow all instructions on the label. ? Schedule time each day for a bowel movement. A daily routine may help. Take your time and do not strain when having a bowel movement. ?? Follow your doctor's directions for stretching and other exercises that might help with pain. When should you call for help? Call 911 anytime you think you may need emergency care. For example, call if: ? You are unable to move a leg at all. Call your doctor now or seek immediate medical care if: ? You have new or worse symptoms in your legs or buttocks. Symptoms may include: ? Numbness or tingling. ? Weakness. ? Pain. ? You lose bladder or bowel control. Watch closely for changes in your health, and be sure to contact your doctor if: ? You are not getting better as expected. Where can you learn more? Visit our health information library at [email or web address] You can also view health information on [employer], your personal patient account. Log in or sign up today. Enter N853 in the search box to learn more about Coccyx Pain: Care Instructions. Current as of: December 07, 2019?Content Version: 12.9 ?? [employer]. Care instructions adapted under license by [facility]. If you have questions about a medical condition or this instruction, always ask your healthcare professional. [employer] disclaims any warranty or liability for your use of this information. Patient Education Low Back Arthritis: Exercises Introduction Here are some examples of typical rehabilitation exercises for your condition. Start each exercise slowly. Ease off the exercise if you start to have pain. Your doctor or physical therapist will tell you when you can start these exercises and which ones will work best for you. When you are not being active, find a comfortable position for rest. Some people are comfortable on the floor or a medium-firm bed with a small pillow under their head and another under their knees. Some people prefer to lie on their side with a pillow between their knees. Don't stay in one position for too long. Take short walks (10 to 20 minutes) every 2 to 3 hours. Avoid slopes, hills, and stairs until you feel better. Walk only distances you can manage without pain, especially leg pain. How to do the exercises Pelvic tilt 1. Lie on your back with your knees bent. 2. Brace your stomach--tighten your muscles by pulling in and imagining your belly button moving toward your spine. 3. Press your lower back into the floor. You should feel your hips and pelvis rock back. 4. Hold for 6 seconds while breathing smoothly. 5. Relax and allow your pelvis and hips to rock forward. 6. Repeat 8 to 12 times. Back stretches 1. Get down on your hands and knees on the floor. 2. Relax your head and allow it to droop. Round your back up toward the ceiling until you feel a nice stretch in your upper, middle, and lower back. Hold this stretch for as long as it feels comfortable, or about 15 to 30 seconds. 3. Return to the starting position with a flat back while you are on your hands and knees. 4. Let your back sway by pressing your stomach toward the floor. Lift your buttocks toward the ceiling. 5. Hold this position for 15 to 30 seconds. 6. Repeat 2 to 4 times. Follow-up care is a vargas part of your treatment and safety. Be sure to make and go to all appointments, and call your doctor if you are having problems. It's also a good idea to know your test results and keep a list of the medicines you take. Where can you learn more? Visit our health information library at [email or web address] You can also view health information on [employer], your personal patient account. Log in or sign up today. Enter T094 in the search box to learn more about Low Back Arthritis: Exercises. Current as of: 2020?Content Version: 12.9 ?? [id number] [employer]. Care instructions adapted under license by [facility]. If you have questions about a medical condition or this instruction, always ask your healthcare professional. [employer] disclaims any warranty or liability for your use of this information. documented in this encounter Progress Notes Parker Dang MD - 09/27/2020 3:40 PM EDT Subjective: Patient ID: Mohit Dotson is a 60 y.o. male. HPI Annual exam. 'Life's not like it used to be - I can't go anywhere, can't do anything.' Frustrated by people not wearing masks and 'not doing the right thing.' Generally feels like he's doing pretty well. In June, he developed acute pain in his back and pelvis and when he sits down it bothers him. He had been doing exercises (treadmill, bicycle) beforehand, but no injury/trauma. Gardening this summer; this can exacerbate his pain. The pain radiates into his buttocks but not into his knees or heels. No new urinary hesitancy (he has LUTS at baseline that hasn't changed). Denies leg weakness. Has known listhesis, facet arthritis and disc space narrowing of L5-S1 from a lumbar XR in 2016. Hyperlipidemia: on atorvastatin Hypertension: on atenolol. Gout: continues on allopurinol. BPH with LUTS: on finasteride Bothered by a hemorrhoid every so often; has some bleeding that is bright red and can be present when he 'farts.' Comes and goes. Stool is formed and dark brown/green. No diarrhea or loose stool. Can sometimes have pain when he passes a BM. He has had this (bleeding, pain) episodically for years now. Review of Systems REVIEW OF SYSTEMS 09/23/2020 Constitutional None of the above Ear / nose / throat / mouth None of the above Eyes None of the above Respiratory None of the above Cardiovascular None of the above Gastrointestinal None of the above Skin, hair Loss of hair, Other symptoms with skin or hair Musculoskeletal Joint stiffness, Back pain, Muscle stiffness Neurological None of the above Hematologic / Lymphatic None of the above Genitourinary Frequent urination, Pelvic Pain Other Symptoms - Objective: Physical Exam Constitutional: The patient appears [...] deficitsnoted. Skin: Skin is warm and dry. Left shoulder demonstrates irregularly bordered dark brown macule, ?SK Psychiatric: The patient has a normal mood and affect, and normal behavior. Assessment and Plan: 60 yo M here for annual exam. - hemorrhoidal pain, discomfort: trial of hydrocortisone suppositories; if no improvement in 4 weeks, will arrange for colonoscopy (early - he is due for screening colo next year). If Anusol is expensive at [facility], let me know and I will send Rx to [facility] and you can use GoodRx coupon there - low back pain: this sounds like coccydynia or facet arthropathy. Start with stretches, exercises (provided). If no improvement gradually with this approach, contact me and we will obtain lumbar/coccygeal XR. - PSA for prostate cancer screening - hypertension: stable on atenolol. Check BMP - HLD: stable on statin - gout: stable on allopurinol; check uric acid - dermatology referral re: left shoulder macule, SK vs melanoma documented in this encounter Plan of Treatment Scheduled Referrals Name Type Priority Associated Order Schedule Diagnoses Referral to Outpatient Referral Routine Changing skin Ordered : Dermatology lesion 09/27/2020 documented as of this encounter Goals Goal Patient Goal Associated Recent Patient-Stated? 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 HEMOGRAM Routine 09/27/2020 4:50 PM Anal bleeding Results for this EDT procedure are i n the results section. DIFFERENTIAL, Routine 09/27/2020 4:50 PM Anal bleeding Results for this AUTOMATED EDT procedure are i n the results section. HC CBC,PLT & AUTO Routine 09/27/2020 4:50 PM Anal bleeding DIFF EDT HC URIC ACID, SERUM Routine 09/27/2020 4:50 PM Idiopathic gout of Results for this EDT multiple sites, procedure ar e in unspecified the results chronicity section. HC FERRITIN, SERUM Routine 09/27/2020 4:50 PM Anal bleeding Re sults for this EDT procedure are i n the results section. BASIC METABOLIC Routine 09/27/2020 4:50 PM Essential Result s for this PANEL (NON-FASTING) EDT hypertension procedur e are in the results section. documented in this encounter Results Differential, Automated (09/27/2020 4:50 PM EDT) athologist Signature Neutrophils % 64.6 % [facility] Neutr Abs (ANC) 4.45 1.70 - [facility] 6.10 [facility] x10(3)/[facility] LABORATORY Lymphocytes % 21.6 % [facility] Lymphocytes Abs 1.5 0.9 - 3.2 [facility] x10(3)/[facility] LABORATORY Monocytes % 9.0 % [facility] Monocyte Abs 0.6 0.3 - 0.9 [facility] x10(3)/[facility] LABORATORY Eosinophils % 4.1 % [facility] Eosinophils Abs 0.3 0.0 - 0.4 [facility] x10(3)/[facility] LABORATORY Basophils % 0.4 % [facility] Basophils Abs 0.0 0.0 - 0.1 [facility] x10(3)/[facility] LABORATORY Immature Gran % 0.30 % [facility] Comment: Immature granulocytes(IG's)percentage an d absolute count will include metamyelocytes, myelocytes, and promyelo cytes. Blood smears from CBCs yielding IG's will be scanned manually for concor dance. If this scan disagrees with the automated IG or if promyelocytes are not ed, a manual differential will be performed. Honey Gran Abs 0.02 0.00 - 0.04 x10(3)/[facility] Specimen Anatomical Collection Method Collection Time Receive d Time (Source) Location / / Volume Laterality Blood 09/27/2020 4:50 PM 6:40 EDT PM EDT Resulting Agency Comment Spec In Lab Parker Dang MD HEMATOLOGY ORDERABLES Performing Organization Address City/State/[place] [address] (ABNORMAL) Hemogram (09/27/2020 4:50 PM EDT) Analysis Performed At Patho logist Time Signature WBC 6.9 4.0 - 9.5 [facility] x10(3)/[facility] LABORATORY RBC 4.36 (L) 4.58 - [facility] 5.54 [facility] x10(6)/[facility] LABORATORY Hemoglobin 14.1 13.7 - [facility] gm/dL [facility] Hematocrit 40.8 40.5 - [facility] 48.5 % [facility]ORY MCV 93.6 (H) 82.9 - [facility] 93.1 fL [facility] MCH 32.3 (H) 27.5 - [facility] 32.1 pg [facility]ORY MCHC 34.6 32.0 - [place] 35.7 gm/dL [facility] Platelets 171 145 - 357 [place] x10(3)/[facility] LABORATORY RDWSD 45.6 (H) 36.0 - [place] 45.0 [facility] LABORATORY RDWCV 13.4 11.4 - [place] 13.8 % [facility] LABORATORY MPV 12.2 7.6 - 12.9 [place] [facility] LABORATORY nRBC % Auto 0.0 % [facility] nRBC Abs Auto 0.000 0.000 - [place] 0.000 [facility] x10(3)/[facility] LABORATORY Specimen Anatomical Collection Method Collection Time Receive d Time (Source) Location / / Volume Laterality Blood 09/27/2020 4:50 PM 1 6:40 EDT PM EDT Resulting Agency Comment Spec In Lab Parker Dang MD HEMATOLOGY ORDERABLES Performing Organization Address City/[facility]/[place] [address] Uric acid (09/27/2020 4:50 PM EDT) athologist Signature Uric Acid 4.8 3.5 - 8.5 [place] mg/dL [facility] Specimen Anatomical Collection Method Collection Time Receive d Time (Source) Location / / Volume Laterality Blood 09/27/2020 4:50 PM 1 6:37 EDT PM EDT Resulting Agency Comment Spec In Lab Parker Dang MD CHEMISTRY ORDERABLES Performing Organization Address City/State/ZIP [facility] [place] [address] PSA Screen (09/27/2020 4:50 PM EDT) athologist Signature PSA Total 0.18 0.00 - 4.00 [place] ng/mL [facility] Comment: PLEASE NOTE: The above reference interva l is intended for healthy males with an intact prostate. Values within this refe rence interval may indicate recurrence in men who have undergone radical prosta tectomy. Specimen Anatomical Collection Method Collection Time Receive d Time (Source) Location / / Volume Laterality Blood 09/27/2020 4:50 PM 6:37 EDT PM EDT Resulting Agency Comment Spec In Lab Parker Dang MD CHEMISTRY ORDERABLES Performing Organization Address City/State/[place] [address] (ABNORMAL) Basic Metabolic Panel (non-fasting) (09/27/2020 4:50 PM EDT) athologist Signature Glucose Lvl 91 65 - 199 [facility] mg/dL [facility] Comment: Diabetes: >=200 mg/dL plus symp toms BUN 23 (H) 10 - 20 mg/dL [facility] Creatinine 1.39 0.80 - 1.50 mg/dL [facility] Sodium 138 135 - 145 mmol/L [facility] Potassium 4.3 3.5 - 5.0 mmol/L [facility] Comment: Please note: ??Patients with WBC >100,00 0 may have falsely elevated Potassium levels. ??For accurate Potassium quantif ication in these patients send serum separator tube (gold top) for subsequent determinations. ??Contact the Clinical Chemistry Laboratory if there are any qu estions. Chloride 103 98 - 107 mmol/L [facility] CO2 23 22 - 31 mmol/L [facility] Anion Gap 12 5 - 15 mmol/L [facility] Calcium 9.7 8.5 - 10.5 mg/dL [facility] Estimated GFR 54 (L) >=60 mL/min/1.73 m?? [facility] Comment: This patient? s estimated glomerular filtration rate (eGFR) is between 54 mL/min/1.73 m2 (patients with less muscl e mass per kg body weight) and 63 mL/min/1.73 m2 (patients with more muscl e mass per kg body weight) as determined by the CKD-EPI equation. Asse ssment of eGFR is not appropriate when creatinine concentrations are rapidly ch anging. For clinical decisions where creatinine clearance will affect therapy , a 24-hour urine creatinine clearance may be advised. Assignment of CKD stage 1 - 5 for patien ts with an eGFR near the transition point between stages may be based on cli nical assessment of muscle mass and symptoms in addition to eGFR. Specimen Anatomical Collection Method Collection Time Receive d Time (Source) Location / / Volume Laterality Blood 09/27/2020 4:50 PM 6:37 EDT PM EDT Resulting Agency Comment Spec In Lab Parker Dang MD CHEMISTRY ORDERABLES Performing Organization Address City/State/[place] [address] (ABNORMAL) Ferritin (09/27/2020 4:50 PM EDT) athologist Signature Ferritin 508 (H) 30 - 400 [facility] ng/mL [facility] Comment: Pediatric reference ranges not verified at [facility], interpret with caution. Reference ranges for females greater katty n 50 years of age approach values for men, i.e., 30-400 ng/mL. Specimen Anatomical Collection Method Collection Time Receive d Time (Source) Location / / Volume Laterality Blood 09/27/2020 4:50 PM 6:38 EDT PM EDT Resulting Agency Comment Spec In Lab Parker Dang MD CHEMISTRY ORDERABLES Performing Organization Address City/State/[place] [address] documented in this encounter Visit Diagnoses Diagnosis Annual physical exam Routine general medical examination at a health care facility Benign prostatic hyperplasia with lower urinary tract symptoms, symptom details unspecified Mixed hyperlipidemia Idiopathic gout of multiple sites, unspe cified chronicity Essential hypertension Unspecified essential hypertension Anal bleeding Hemorrhage of rectum and anus Prostate cancer screening Special screening for malignant neoplasm of prostate Changing skin lesion Unspecified disorder of skin and subcuta neous tissue documented in this encounter Care Teams Pattern Layout Worker Relationship Specialty Start Date End Date Parker Dang MD PCP - General General Internal Medicine 10/01/16 [facility] GENERAL [place] [address] documented as of this encounter
--- OUTSIDE RECORDS SUMMARY | 2021-08-29 11:44 | XMS_ITS | Encounter Summary ---
:1960 Author Organization [facility] [place] [address] Care Team Providers Name Role Phone Parker Dang MD Primary Care Provider Reason for Visit Reason Onset Date Comments Medication Refill 08/02/2019 Encounter Details Date Type Department Care Team Description 08/02/2019 Refill Rheumatology at [facility] Gina Gutierrez Gout, unspecified [facility] Xavier Garcia [place] cause, [place] [address] [facility] chronicity, unspecified [phone] [facility] RHEUMATOLOGY [place], [place] [address] (Wo rk) Social History Tobacco [...] place to sleep or slept in a half-way (including now)? Sex Assigned at Date Recorded Male 05/03/2020 3:20 PM EDT documented as of this encounter Plan of Treatment Not on filedocumented as of this encounter Goals Goal Patient Goal Associated Recent Patient-Stated? 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
--- OUTSIDE RECORDS SUMMARY | 2021-08-29 11:44 | XMS_ITS | Encounter Summary ---
:1960 Author Organization [facility] [place] [address] Care Team Providers Name Role Phone Parker Dang MD Primary Care Provider Reason for Visit Reason Comments Medication Refill Encounter Details Date Type Department Care Team Description 06/17/2018 Refill Internal Medicine at Parker Dang, Benign prostatic hyperplasia with lower urinary tract symptoms, symptom details unspecified; Heidi Velasquez MD Lower urinary tract symptoms (LUTS); [address] 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
--- OUTSIDE RECORDS SUMMARY | 2021-08-29 11:44 | XMS_ITS | Encounter Summary ---
:1960 Author Organization [facility] Address [address] [place] [address] Care Team Providers Name Role Phone Parker Dagn MD Primary Care Provider Reason for Visit Reason Onset Date Comments Medication Refill 05/25/2019 Encounter Details Date Type Department Care Team Description 05/25/2019 Refill Internal Medicine at Parker Dang, Hypertension, unspecified type; Heidi Velasquez MD Benign prostatic hyperplasia with lower urinary tract symptoms, symptom details unspecified; [address] [facility] Lower urinary tract symptoms (LUTS); [place] [address] Hyperlipidemia, unspecified hyperlipidem ia type; [phone] GENERAL INTERNAL Idiopathic chronic gout, left ankle and foot, with tophus (tophi) [address] [place], [place] [address] (Wo rk) Social History Tobacco [...] this encounter Miscellaneous Notes Telephone Encounter - Cinthya Orta - 05/25/2019 10:09 AM EDT Pt has switched pharmacy please make sure new prescriptions get sent to the new pharmacy documented in this encounter Plan of Treatment Not on filedocumented as of this encounter Goals Goal Patient Goal Associated Recent Patient-Stated? Author Type Problems Progress Blood Blood Hypertension 133/79 No [place], Pressure < Pressure (09/27/2020 Susie Del Toro, 130/90 3:36 PM EDT) SPECIAL POLICE documented as of this encounter Visit Diagnoses Diagnosis Hypertension, unspecified type Benign prostatic hyperplasia with lower urinary tract symptoms, symptom details unspecified Lower urinary tract symptoms (LUTS) Other symptoms involving urinary system Hyperlipidemia, unspecified hyperlipidem ia type Idiopathic chronic gout, left ankle and foot, with tophus (tophi) documented in this encounter Care Teams Auto Radiator Specialist Relationship Specialty Start Date End Date Parker Dang MD PCP - General Internal Medicine 10/01/16 [facility] [place] [address] documented as of this encounter
--- OUTSIDE RECORDS SUMMARY | 2021-08-29 11:44 | XMS_ITS | Encounter Summary ---
:1960 [place] [address] Care Team Providers Name Role Phone Parker Dang MD Primary Care Provider Reason for Visit Reason Comments Medication Refill Encounter Details Date Type Department Care Team Description 12/22/2020 Refill Internal Medicine at Parker Dang, Hypertension, unspecified type; Radha Velasquez MD Benign prostatic hyperplasia with lower urinary tract symptoms, symptom details unspecified; [address] [facility] Lower urinary tract symptoms (LUTS) [facility] [place] [address] [phone] [place] [address] (Wo rk) Social History Tobacco Use Types [...] place to sleep or slept in a skilled nursing (including now)? Sex Assigned at Date Recorded Male 05/03/2020 3:20 PM EDT documented as of this encounter Plan of Treatment Not on filedocumented as of this encounter Goals Goal Patient Goal Associated Recent Patient-Stated? Author Type Problems Progress Blood Blood Hypertension 133/79 No [place], Pressure < Pressure (09/27/2020 Susie Del Toro, 130/90 3:36 PM EDT) STABILIZING MACHINE OPERATOR documented as of this encounter Visit Diagnoses Diagnosis Hypertension, unspecified type Benign prostatic hyperplasia with lower urinary tract symptoms, symptom details unspecified Lower urinary tract symptoms (LUTS) Other symptoms involving urinary system documented in this encounter Care Teams Cloth Folder Machine Relationship Specialty Start Date End Date Parker Dang MD PCP - General General Internal Medicine 10/01/[address] [facility] [place] [address] documented as of this encounter
--- OUTSIDE RECORDS SUMMARY | 2021-08-29 11:44 | XMS_ITS | Encounter Summary ---
:1960 Author Organization [facility] [place] [address] Care Team Providers Name Role Phone Parker Dang MD Primary Care Provider Reason for Visit Reason Onset Date Comments Medication Problem 06/04/2017 Encounter Details Date Type Department Care Team Description 06/04/2017 Refill Internal Medicine at Neda Anderson Id iopathic chronic gout, [address] left ankle and foot, with [address] tophus (tophi) [place] [address] Social History Tobacco Use Types Packs/Day [...] this encounter Miscellaneous Notes Telephone Encounter - Mikaela Faith RN - 06/04/2017 11:46 AM EDT Luiza Reddy is calling in. Pt usually gets the chewable asa. He would like it for 90 days. Prep and pend for provider edit and approval. Telephone Encounter - Neda Anderson - 06/04/2017 11:36 AM EDT [place] Medication: aspirin 81 mg Tablet, Delayed Release (E.C.) Message: Pharmacy called stating that pt is very upset that he was prescribed the wrong medication as he usually recieves a chewable Asprin 81 mg and he wants a 90 day supply instead of 30. Pharmacy needs a new prescription. Please call with any questions or to confirm. documented in this encounter Plan of Treatment Not on filedocumented as of this encounter Visit Diagnoses Diagnosis Idiopathic chronic gout, left ankle and foot, with tophus (tophi) documented in this encounter Care Teams Behavioral Services Tech Relationship Specialty Start Date End Date Parker Dang MD PCP - General General Internal Medicine 10/01/16 [facility] [place] [address] documented as of this encounter
--- OUTSIDE RECORDS SUMMARY | 2021-08-29 11:44 | XMS_ITS | Encounter Summary ---
:1960 Author Organization [facility] [place] [address] Care Team Providers Name Role Phone Parker Dang MD Primary Care Provider Encounter Details Date Type Department Care Team Description 06/18/2018 Office Visit Rheumatology at [facility] Brenda, Primary osteoarthritis invol ving multiple joints; [facility] Gina Garcia DO Idiopathic gout of multiple sites, unspe [place] [address] CENTER [phone] [place] [place] [address] Social History Tobacco Use Types Packs/Day Years [...] place to sleep or slept in a halfway (including now)? Sex Assigned at Date Recorded Male 05/03/2020 3:20 PM EDT documented as of this encounter Last Filed Vital Signs Vital Sign Reading Time Taken Comments Blood Pressure 143/92 06/18/2018 12:12 pt anxious drov e fast PM EDT to be on time fo r apointment Pulse 55 06/18/2018 12:12 PM EDT Temperature 36.9 ??C (98.5 ??F) 06/18/2018 12:12 PM EDT Respiratory Rate - - Oxygen Saturation 100% 06/18/2018 12:12 PM EDT Inhaled Oxygen - - Concentration Weight 93 kg (205 lb) 06/18/2018 12:12 PM EDT Height 175.4 cm (5' 9.06) 06/18/2018 12:12 PM EDT Body Mass Index 30.22 06/18/2018 12:12 PM EDT documented in this encounter Progress Notes Gina Gutierrez DO - 06/18/2018 12:30 PM EDT Outpatient Rheumatology Followup Problem List: [...] on July [address] Hand in [place] 7. Shingles Interim History: Last seen 6 months ago. No gout attacks. Taking allopurinol 300 mg daily. Has had Pain in the left shoulder for 4-5 months now. Worse with certain movements and Lying on it. He has been exercising regularly again after taking a break in the winter. He walks on a treadmill and uses a bike. He is working on his barn and showed me pictures today. They want to fix the house and move to [place]. Low vitamin D: has been taking weekly vitamin D. Stopped taking flomax. Feels better without it. PMH: CVA, HTN, hyperlipidemia, CKD, gout, shingles Social Hx: never smoker, Family Hx: father had gout Physical Exam: Not repeated today Assessment and Plan: This was a counseling dominated visit. I spent 30 minutes with the patient and 25 minutes was spent in discussion of the followin yo male with gout and osteoarthritis. He will continue taking 300 mg of allopurinol. I congratulated him for his continued exercise and healthy eating. No labs needed today I offered to inject his left shoulder we will wait and see how it does over time. The right one feltthe same way and healed on its own. RTC in 6 months documented in this encounter Plan of Treatment Not on filedocumented as of this encounter Goals Goal Patient Goal Associated Recent Patient-Stated? Author Type Problems Progress Blood Blood Hypertension 133/79 No [place], Pressure < Pressure (09/27/2020 Susie Del Toro, 130/90 3:36 PM EDT) IMMIGRATION JUDGE documented as of this encounter Visit Diagnoses Diagnosis Primary osteoarthritis involving multipl e joints Idiopathic gout of multiple sites, unspe cified chronicity documented in this encounter Care Teams Forestry Patrolman Relationship Specialty Start Date End Date Parker Dang MD PCP - General General Internal Medicine 10/01/16 [facility] [place] [address] documented as of this encounter
--- OUTSIDE RECORDS SUMMARY | 2021-08-29 11:44 | XMS_ITS | Encounter Summary ---
:1960 Author Organization [facility] [place] [address] Care Team Providers Name Role Phone Parker Dang MD Primary Care Provider Reason for Visit Reason Comments Medication Refill Encounter Details Date Type Department Care Team Description 10/26/2018 Refill Rheumatology at [facility] Gina Gutierrez, [facility] [place] [address] RHEUMATOLOGY DEPT. [phone] [place], [place] [address] (Wo rk) Social History Tobacco [...] Susie Del Toro, 130/90 3:36 PM EDT) NEWSPAPER CARRIER documented as of this encounter Visit Diagnoses Not on filedocumented in this encounter Care Teams Log Operations Coordinator Relationship Specialty Start Date End Date Parker Dang MD PCP - General General Internal Medicine 10/01/16 [facility] [place] [address] documented as of this encounter
--- OUTSIDE RECORDS SUMMARY | 2021-08-29 11:44 | XMS_ITS | Encounter Summary ---
:1960 Author Organization [facility] [place] [address] Care Team Providers Name Role Phone Parker Dang MD Primary Care Provider Encounter Details Date Type Department Care Team Description 12/16/2018 Telephone Otolaryngology at [facility] [place] [address] Social History Tobacco Use Types Packs/Day [...] this encounter Miscellaneous Notes Telephone Encounter - Mariah Ferrer - 12/16/2018 11:23 AM EDT Called patient to inform of appointment time change due to RS being in surgery in the afternoon on scheduled date. Advised to contact clinic to confirm morning appointment with RS or if prefers Dr. Belcher afternoon time available that day 01/09/2019 documented in this encounter Plan of Treatment Not on filedocumented as of this encounter Goals Goal Patient Goal Associated Recent Patient-Stated? Author Type Problems Progress Blood Blood Hypertension 133/79 No [place], Pressure < Pressure (09/27/2020 Susie Del Toro, 130/90 3:36 PM EDT) CUSTOMER SUPPORT COORDINATOR documented as of this encounter Visit Diagnoses Not on filedocumented in this encounter Care Teams Infantry Operations Specialist Relationship Specialty Start Date End Date Parker Dang MD PCP - General General Internal Medicine 10/01/16 [facility] [place] [address] documented as of this encounter
--- OUTSIDE RECORDS SUMMARY | 2021-08-29 11:44 | XMS_ITS | Encounter Summary ---
:1960 Author Organization [facility] [place] [address] Care Team Providers Name Role Phone Parker Dang MD Primary Care Provider Reason for Visit Reason Onset Date Comments Medication Refill 05/31/2020 Encounter Details Date Type Department Care Team Description 05/31/2020 [facility] [address] [place] [address] Social History Tobacco Use Types Packs/Day Years [...] place to sleep or slept in a correction (including now)? Sex Assigned at Date Recorded Male 05/03/2020 3:20 PM EDT documented as of this encounter Miscellaneous Notes Telephone Encounter - Mahogany Dyer - 05/31/2020 2:48 PM EDT Message: Pt called to check on status of his Lipitor. This agent notified him that it appeared the medication was pending. FYI. Ask caller their first and last name and relationship to the patient: Self Best time to call back: Ok to leave a message: Ok to send my- message: Offered Appointment: MA/Nurse/Senior [employer] Net Developer contacted via: Message: y Call: n Pager: n documented in this encounter Plan of Treatment Not on filedocumented as of this encounter Goals Goal Patient Goal Associated Recent Patient-Stated? Author Type Problems Progress Blood Blood Hypertension 133/79 No [place], Pressure < Pressure (09/27/2020 Suise Del Toro, 130/90 3:36 PM EDT) E COMMERCE SOLUTION ARCHITECT documented as of this encounter Visit Diagnoses Not on filedocumented in this encounter Care Teams Police Or Patrol Park Officer Relationship Specialty Start Date End Date Parker Dang MD PCP - General General Internal Medicine 10/01/16 [facility] [place] [address] documented as of this encounter
--- OUTSIDE RECORDS SUMMARY | 2021-08-29 11:44 | XMS_ITS | Encounter Summary ---
:1960 Author Organization [facility] [place] [address] Care Team Providers Name Role Phone Parker Dang MD Primary Care Provider Reason for Visit Reason Onset Date Comments Medication Refill 02/22/2018 Encounter Details Date Type Department Care Team Description 02/22/2018 Refill Rheumatology at [facility] Gina Gutierrez Gout, unspecified cause, uns pecified chronicity, unspecified site; [facility] Xavier Garcia DO Proteinuria, unspecified type; [place] [address] [facility] Gynecomastia [phone] RHEUMATOLOGY DEP [place], [place] [address] (Wo rk) Social History Tobacco [...] Susie Del Toro, 130/90 3:36 PM EDT) RN POOL documented as of this encounter Visit Diagnoses Diagnosis Gout, unspecified cause, unspecified chr onicity, unspecified site Proteinuria, unspecified type Gynecomastia Hypertrophy of breast documented in this encounter Care Teams Recreation Program Specialist Relationship Specialty Start Date End Date Parker Dang MD PCP - General General Internal Medicine 10/01/16 [facility] [place] [address] documented as of this encounter
--- OUTSIDE RECORDS SUMMARY | 2021-08-29 11:44 | XMS_ITS | Encounter Summary ---
:1960 Author Organization [facility] [place] [address] Care Team Providers Name Role Phone Parker Dang MD Primary Care Provider Encounter Details Date Type Department Care Team Description 12/03/2017 Office Visit Rheumatology at [facility] Brenda, Idiopathic gout of multiple sites, unspecified chronicity (Primary Dx); [facility] Gina Garcia DO Primary osteoarthritis involving [place] [address] CENTER [phone] [place] [address] Social History Tobacco Use Types Packs/Day Years [...] PM EDT documented as of this encounter Patient Instructions Patient InstructionsGina Gutierrez DO - 12/03/2017 1:30 PM EDT Continue allopurinol 300 mg daily Continue exercise and healthy eating Labs today OK to use as needed tylenol for aches and pains if needed. Return visit in 6 months documented in this encounter Progress Notes Gina Gutierrez DO - 12/03/2017 1:30 PM EDT Outpatient Rheumatology Followup Problem [...] on July [address] Hand in [place] Interim History: Last seen in May. He had surgery for a deviated septum and has done well with this. He is having ingrown toenails removed. He has been exercising regularly. He walks on a treadmill and uses a bike. Has kept his weight at 199. He is working on his barn. He is happy that he is able to do it. Gout:continues on allopurinol with no severe gout flares. Most recent uric acid was 5 on 05/09. Allopurinol dose is 300 mg daily. He is eating a very healthy diet. He has not needed any colchicine or diclofenac. He has some aches and pains here and there but they are tolerable. Low vitamin D: has been taking weekly vitamin D. Needs a refill today. He had an episode of shingles. It was mild. Got better with topical cream. He is seeing Dr. Dang today. PMH: CVA, HTN, hyperlipidemia, CKD, gout, shingles Social Hx: never smoker, Family Hx: father had gout Physical Exam: Not repeated today Assessment and Plan: This was a counseling dominated visit. I spent 25 minutes with the patient and 20 minutes was spent in discussion of the followin yo male with gout and osteoarthritis. He will continue taking 300 mg of allopurinol. I congratulated him for his continued exercise and healthy eating. I encouraged him to have a flu shot today and he agreed. Will check cmp, uric acid and vitamin D level today. Can use prn tylenol for aches and pains if needed but he seems to be managing well without medications. RTC in 6 months documented in this encounter Plan of Treatment Not on filedocumented as of this encounter Goals Goal Patient Goal Associated Recent Patient-Stated? 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 URIC ACID Routine 12/03/2017 3:50 PM Idiopathic gout of Res ults for this EDT multiple sites, procedure ar e in unspecified the results chronicity section. COMPREHENSIVE Routine 12/03/2017 3:50 PM Idiopathic gout of Re sults for this METABOLIC PANEL EDT multiple sites, procedure are in (NON-FASTING) unspecified the results chronicity section. documented in this encounter Results Vitamin D, 25-Hydroxy (12/03/2017 3:50 PM EDT) P athologist Signature 25-OH Vit D 54 30 - 100 TRAMAINE JOE Total ng/mL [facility] Comment: Deficient <10 ng/mL Insufficient 10 to 29 ng/mL Sufficient 30 to 100 ng/mL Potential Intoxication >100 ng/mL According to the [place] National Osteoporosi s Foundation, Vitamin D concentrations >30 ng/mL are sufficient to protect bone health. ??The National Kidney Foundation has similarly stated that pat ients with Vitamin D concentrations <30ng/mL should be considered to be insu fficient or deficient. http://[employer].OpenStudy/nkf-guidelines http://[employer].OpenStudy/nejm-VitD The [employer] i[employer] Vitamin D Immunoassay detec ts both 25-OH Vitamin D2 and 25-OH Vitamin D3, but only a total Vitamin D c oncentration is reported. Specimen Anatomical Collection Method Collection Time Receive d Time (Source) Location / / Volume Laterality Blood specimen 12/03/2017 3:50 PM 018 7:15 (specimen) EDT AM EDT Resulting Agency Comment Spec In Lab Gina Gutierrez DO CHEMISTRY ORDERABLES Performing Organization Address City/State/[place] [address] (ABNORMAL) Comprehensive metabolic panel (non-fasting) (12/03/2017 3:50 PM EDT) P athologist Signature Glucose Lvl 96 65 - 199 [facility] mg/dL [facility] Comment: Diabetes: >=200 mg/dL plus symp toms BUN 24 (H) 10 - 20 mg/dL [facility] Creatinine 1.28 0.80 - 1.50 mg/dL [facility] Sodium 136 135 - 145 mmol/L [facility] Potassium 4.6 3.5 - 5.0 mmol/L [facility] Comment: Please note: ??Patients with WBC >100,00 0 may have falsely elevated Potassium levels. ??For accurate Potassium quantif ication in these patients send serum separator tube (gold top) for subsequent determinations. ??Contact the Clinical Chemistry Laboratory if there are any qu estions. Chloride 101 98 - 107 mmol/L [facility] CO2 25 22 - 31 mmol/L [facility] Anion Gap 10 5 - 15 mmol/L [facility] Calcium 10.0 8.5 - 10.5 mg/dL [facility] Total Protein 7.6 6.1 - 8.0 gm/dL [facility] Albumin 4.5 3.2 - 5.2 gm/dL [facility] AST 20 0 - 39 unit/L [facility] ALT 29 0 - 55 unit/L [facility] Alk Phos 52 40 - 120 unit/L [facility] Total Bilirubin 0.6 0.2 - 1.3 mg/dL [facility] Estimated GFR 61 >=60 mL/min/1.73 m?? [facility] Comment: The eGFR was calculated using the CKD-EP I equation. As with all creatinine based estimates of kidney function, eGFR values calculated with the CKD-EPI equation are not accurate in patients wi th acute kidney failure, extremes of body mass or the acutely ill. [email or web address]ER[facility]f eGFR 71 >=60 mL/min/1.73 m?? [facility] Comment: The eGFR was calculated using the CKD-EP I equation. As with all creatinine based estimates of kidney function, eGFR values calculated with the CKD-EPI equation are not accurate in patients wi th acute kidney failure, extremes of body mass or the acutely ill. [email or web address]ER[facility]f Specimen Anatomical Collection Method Collection Time Receive d Time (Source) Location / / Volume Laterality Blood specimen 12/03/2017 3:50 PM 018 6:12 (specimen) EDT PM EDT Resulting Agency Comment Spec In Lab Gina Gutierrez DO CHEMISTRY ORDERABLES Performing Organization Address City/State/[place] [address] Uric acid (12/03/2017 3:50 PM EDT) P athologist Signature Uric Acid 5.1 3.5 - 8.5 [facility] mg/dL [facility] Specimen Anatomical Collection Method Collection Time Receive d Time (Source) Location / / Volume Laterality Blood specimen 12/03/2017 3:50 PM 018 6:12 (specimen) EDT PM EDT Resulting Agency Comment Spec In Lab Gina Gutierrez DO CHEMISTRY ORDERABLES Performing Organization Address City/State/ZIP [place] [address] documented in this encounter Visit Diagnoses Diagnosis Idiopathic gout of multiple sites, unspe cified chronicity - Primary Primary osteoarthritis involving multipl e joints documented in this encounter Care Teams Placement Interviewer Relationship Specialty Start Date End Date Parker Dang MD PCP - General General Internal Medicine 10/01/16 [facility] GENERAL [place] [address] documented as of this encounter
--- OUTSIDE RECORDS SUMMARY | 2021-08-29 11:44 | XMS_ITS | Encounter Summary ---
:1960 Author Organization [facility] Address [address] [place] [address] Care Team Providers Name Role Phone Parker Dang MD Primary Care Provider Encounter Details Date Type Department Care Team Description 05/03/2020 TH Visit Rheumatology at [facility] Vincent Vee, Gout due to renal (TeleHealth) [facility] DO impairment, [address] [place] [address] esteves, RHEUMATOLOGY unspecified site [place], [place] [phone] (Primary Dx) Social History Tobacco Use Types Packs/Day Years [...] place to sleep or slept in a penitentiary (including now)? Sex Assigned at Date Recorded Male 05/03/2020 3:20 PM EDT documented as of this encounter Progress Notes Vincent Vee DO - 05/03/2020 4:15 PM EDT Outpatient Rheumatology Followup-Telephone encounter ID: Mohit Dotson is a 60 y.o. 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 Interim History: Last seen Oct 2019. CC: none HPI: Mohit reports to be doing well since his last visit. He has no complaints. He is adherent to allopurinol and has not had a gout flare in years. He only uses colchicine for flares. He watches his diet. Problem List: 1. Gout 2. OA. 3. TIA 4. CKD - GFR 46-53 5. Low vitamin D 6. H/o shingles PMH: CVA, HTN, hyperlipidemia, CKD, gout, shingles Social Hx: never smoker, Family Hx: father had gout Physical Exam: Exam and vitals not obtained -telephone visit Assessment and Plan: Mohit Dotson is a 60 y.o. male with non tophaceous gout stable on allopurinol 300mg and colchicne as needed, who participated in this telephone visit for follow up on gout and osteoarthritis, both of which are stable. # Non Tophaceous Gout -stable - Associated with CKD - Uric Acid: 4.9 in 10/2019 - stable - sCr: 1.4 in 10/2019 - stable Plan - Continue allopurinol 300mg daily - Colchicine as needed for flares, instructed on how to take in case of flare - He is avoiding alcohol and red meats # Left Supraspinatus Tendonitis - Improving - continue home exercises; s/p injection 10/2019 RTC in 6 mo - if gout remains stable plan to discharge from clinic Vincent Vee DO [facility] Rheumatology I spent 20 minutes caring for the patient today including chart review and documentation. documented in this encounter Plan of Treatment Not on filedocumented as of this encounter Goals Goal Patient Goal Associated Recent Patient-Stated? Author Type Problems Progress Blood Blood Hypertension 133/79 No [place], Pressure < Pressure (09/27/2020 Susie Alverto, 130/90 3:36 PM EDT) VIDEO SPECIALIST documented as of this encounter Visit Diagnoses Diagnosis Gout due to renal impairment, unspecifie d chronicity, unspecified site - Primary documented in this encounter Care Teams Assembly Machine Tool Setter Relationship Specialty Start Date End Date Parker Dang MD PCP - General General Internal Medicine 10/01/16 [facility] [place] [address] documented as of this encounter
--- OUTSIDE RECORDS SUMMARY | 2021-08-29 11:44 | XMS_ITS | Encounter Summary ---
:1960 Author Organization [facility] Address [address] [place] [address] Care Team Providers Name Role Phone Parker Dang MD Primary Care Provider Encounter Details Date Type Department Care Team Description 11/04/2019 Office Visit Rheumatology at [facility] Ralph Byrd Gout, unspecified cause, uns pecified chronicity, unspecified site; [facility] J, DO On allopurinol therapy; Drive [facility] CKD (chronic kidney disease) stage 3, GFR 30-59 ml/min; [place], [place] CENTER Low vitamin D level; [id number] RHEUMATOLOGY Hypercholesterolemia [phone] [place] [address] Social History Tobacco Use Types Packs/Day Years [...] Sign Reading Time Taken Comments Blood Pressure 142/82 11/04/2019 1:16 PM EDT Pulse 62 11/04/2019 1:16 PM EDT Temperature 36.7 ??C (98 ??F) 11/04/2019 1:16 PM EDT Respiratory Rate - - Oxygen Saturation 99% 11/04/2019 1:16 PM EDT Inhaled Oxygen Concentration - - Weight 93.4 kg (206 lb) 11/04/2019 1:16 PM EDT Height 177.8 cm (5' 10) 11/04/2019 1:16 PM EDT Body Mass Index 29.56 11/04/2019 1:16 PM EDT documented in this encounter Progress Notes Ralph Byrd, DO - 11/04/2019 1:30 PM EDT Outpatient Rheumatology Followup-Telephone encounter Problem List: 1. Gout 2. OA. 3. TIA 4. CKD - GFR 46-53 5. Low vitamin D 6. H/o shingles Interim History: Last seen July 2019. CC: left shoulder and right heel pain HPI: Mohit reports to be doing well since his last visit. His main complaint is persistent right heel pain and left shoulder pain. Both are worse with activity and improve with rest. Right heel pain has been ongoing for past 6 months or longer, and he was diagnosed with plantar fasciitis. Left shoulder pain is also chronic and is aggravated by overhead activities. 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 Both his shoulder and his foot pain affect his ability to finish his physical work. He does not take medications for these symptoms. No gout attacks. Taking allopurinol 300 mg daily. Weight is stable at 200 pounds. PMH: CVA, HTN, hyperlipidemia, CKD, gout, shingles Social Hx: never smoker, Family Hx: father had gout Physical Exam: Patient Vitals for the past 24 hrs: Temp Pulse BP SpO2 11/04/19 1316 36.7 ??C (98 ??F) 62 142/82 99 % General: NAD pleasant well developed male Eyes; EOMI no scleral icterus or conjunctival injection CV: RRR normal S1S2 no MRG Resp CTAB ABD: +BS ND Ext: No cyanosis, clubbing or edema MSK - No synovitis or TTP of hands, wrists, elbows, ankles or feet. No tenderness over right plantar fascia or heel. 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 # Non Tophaceous Gout -stable - Associated with CKD - Uric Acid: 4.9 in 01/2019 - sCr: 1.4 in 01/2019 Plan - Continue allopurinol 300mg daily - Colchicine as needed for flares, instructed on how to take in case of flare - He is avoiding alcohol and red meats - Repeat uric acid, creatinine, AST and ALT today # Left Supraspinatus Tendonitis - worsening - Provided exercises for shoulder rehab - Consider steroid injection next visit # Plantar Fasciitis - chronic - Provided exercises, encouraged to ice daily and to use proper inserts for shoes RTC in 6 months Ralph Byrd DO [facility] Rheumatology documented in this encounter Miscellaneous Notes Addendum Note - Ralph Byrd DO - 11/04/2019 1:30 PM EDT Addended by: RALPH BYRD on: 11/04/2019 04:09 PM Modules accepted: Orders Addendum Note - Ralph Byrd DO - 11/04/2019 1:30 PM EDT Addended by: RALPH BYRD on: 11/05/2019 03:45 PM Modules accepted: Orders documented in this encounter Plan of Treatment Not on filedocumented as of this encounter Goals Goal Patient Goal Associated Recent Patient-Stated? Author Type Problems Progress Blood Blood Hypertension 133/79 No [place], Pressure < Pressure (09/27/2020 Susie Del Toro, 130/90 3:36 PM EDT) [employer] documented as of this encounter Procedures Procedure Name Priority Date/Time Associated Comments Diagnosis HC CREATININE Routine 11/04/2019 2:47 On allopurinol Results f or this PM EDT therapy procedure are in CKD (chronic kidney the resu lts disease) stage 3, section. GFR 30-59 ml/min HC VENIPUNCTURE Routine 11/04/2019 2:47 Low vitamin D level Re sults for this PM EDT procedure are i n the results section. HC URIC ACID, SERUM Routine 11/04/2019 2:47 Gout, unspecified Results for this PM EDT cause, unspecified procedure are in chronicity, the results unspecified site section. HC ALANINE AMINO Routine 11/04/2019 2:47 On allopurinol Result s for this TRANSFERASE (ALT) PM EDT therapy procedure are in the results section. HC ASPARTATE Routine 11/04/2019 2:47 On allopurinol Results fo r this AMINOTRANSFERASE (AST) PM EDT therapy proce dure are in the results section. documented in this encounter Results Vitamin D, 25-Hydroxy (11/04/2019 2:47 PM EDT) athologist Signature 25-OH Vit D 45 21 - 100 [facility] Total ng/mL [facility] Comment: Please note, effective June 24, 2019, jeffrey tional result field for Vitamin D Interpretation, and updated flagging not ification. 25-OH Vit D Interp Sufficient [facility] Specimen Anatomical Collection Method Collection Time Receive d Time (Source) Location / / Volume Laterality Blood specimen 11/04/2019 2:47 PM 020 2:55 (specimen) EDT PM EDT Resulting Agency Comment Spec In Lab Ralph Byrd DO CHEMISTRY ORDERABLES Performing Organization Address City/State/[place] [address] Alanine Aminotransferase (11/04/2019 2:47 PM EDT) athologist Signature ALT 31 0 - 55 [facility] unit/L [facility] Specimen Anatomical Collection Method Collection Time Receive d Time (Source) Location / / Volume Laterality Blood specimen 11/04/2019 2:47 PM 020 2:55 (specimen) EDT PM EDT Resulting Agency Comment Spec In Lab Ralph Byrd DO CHEMISTRY ORDERABLES Performing Organization Address City/State/ZIP Code [place] [address] Aspartate Aminotransferase (11/04/2019 2:47 PM EDT) athologist Signature AST 25 0 - 39 [facility] unit/L [facility] Specimen Anatomical Collection Method Collection Time Receive d Time (Source) Location / / Volume Laterality Blood specimen 11/04/2019 2:47 PM 020 2:55 (specimen) EDT PM EDT Resulting Agency Comment Spec In Lab Ralph Byrd DO CHEMISTRY ORDERABLES Performing Organization Address City/[facility]/ZIP Code Ph[place] [employer] [address] (ABNORMAL) Creatinine (11/04/2019 2:47 PM EDT) athologist Signature Creatinine 1.45 0.80 - [facility] 1.[facility] mg/dL [facility] Estimated GFR 52 (L) >=60 [facility] mL/min/1.[address] LABORATORY Comment: The eGFR was calculated using the CKD-EP I equation. As with all creatinine based estimates of kidney function, eGFR values calculated with the CKD-EPI equation are not accurate in patients wi th acute kidney failure, extremes of body mass or the acutely ill. [email or web address] eGFR 60 >=60 mL/min/1.73 m?? [facility] Comment: The eGFR was calculated using the CKD-EP I equation. As with all creatinine based estimates of kidney function, eGFR values calculated with the CKD-EPI equation are not accurate in patients wi th acute kidney failure, extremes of body mass or the acutely ill. [email or web address] Specimen Anatomical Collection Method Collection Time Receive d Time (Source) Location / / Volume Laterality Blood specimen 11/04/2019 2:47 PM 020 2:55 (specimen) EDT PM EDT Resulting Agency Comment Spec In Lab Ralph Byrd DO CHEMISTRY ORDERABLES Performing Organization Address City/State/ZIP Code [place] [address] Uric acid (11/04/2019 2:47 PM EDT) P athologist Signature Uric Acid 4.9 3.5 - 8.5 [facility] mg/dL [facility] Specimen Anatomical Collection Method Collection Time Receive d Time (Source) Location / / Volume Laterality Blood specimen 11/04/2019 2:47 PM 020 2:55 (specimen) EDT PM EDT Resulting Agency Comment Spec In Lab Ralph Byrd DO CHEMISTRY ORDERABLES Performing Organization Address City/[facility]/ZIP Code Ph[place] [address] documented in this encounter Visit Diagnoses Diagnosis Gout, unspecified cause, unspecified chr onicity, unspecified site On allopurinol therapy CKD (chronic kidney disease) stage 3, GF R 30-59 ml/min Chronic kidney disease, Stage III (moder ate) Low vitamin D level Hypercholesterolemia Pure hypercholesterolemia documented in this encounter Care Teams Projection Technician Relationship Specialty Start Date End Date Parker Dang MD PCP - General General Internal Medicine 10/01/16 [facility] [place] [address] documented as of this encounter
--- OUTSIDE RECORDS SUMMARY | 2021-08-29 11:45 | XMS_ITS | Encounter Summary ---
:1960 Author Organization [facility] [place] [address] Care Team Providers Name Role Phone Anni Nicholas MD Primary Care Provider Reason for Referral Physical Therapy (Routine) - Specialty Diagnoses / Procedures Referred By Contact Refer red To Contact Physical Therapy Diagnoses Palindromic rheumatism Nona Sams DO [facility] D R [place]HEUMATOLOGY [place] [address] Referral ID Status Reason Start Date Expiration Date Visits V isits Requested Authorized [id number] Evaluate and 12/02/2015 05/30/2016 12 12 Treat Encounter Details Date Type Department Care Team Description 12/02/2015 Office Visit Rheumatology at [facility] Nona Sams Palindromic rheumatism; [facility] DO Xavier Tophaceous gout; [facility] Primary osteoarthritis invol [place] [address] RHEUMATOLOGY DEPT [phone] [place], [place] [address] Social History Tobacco Use Types Packs/Day Years Used Date Never Smoker Smokeless Tobacco: Never Used Physical Activity Answer Date Recorded On average, [...] Sign Reading Time Taken Comments Blood Pressure 145/90 12/02/2015 1:59 PM white coat sy ndrome EDT Pulse 58 12/02/2015 1:59 PM EDT Temperature 36.9 ??C (98.5 ??F) 12/02/2015 1:59 PM EDT Respiratory Rate 18 12/02/2015 1:59 PM EDT Oxygen Saturation 98% 12/02/2015 1:59 PM EDT Inhaled Oxygen - - Concentration Weight 94.3 kg (208 lb) 12/02/2015 1:59 PM EDT Height 177.8 cm (5' 10) 12/02/2015 1:59 PM EDT Body Mass Index 29.84 12/02/2015 1:59 PM EDT documented in this encounter Progress Notes Nona Sams, - 12/02/2015 1:30 PM EDT HPI Pt brings in his paperwork for joint pain. He notes he primarily has knee, ankle, and back pain. He thinks he has the pain in each individual joint 4-10 hours. Th eonly joints that swell are the toes. He notes pain all day in this joints in the feet. His uric acid is now 4.0. -feet bother him all night long, and most of the day. He is not Doing anything strenuous. He primarily has pain in the great toe and ddiferent parts of the ankle. He has knee pain intermittently. The hands shoulders and wrists are not as painful before. He is on allopurinol 300 mg daily. Notes back pain on the lateral sides of the back. He wakes up in the am with it sometimes, but it generally worsens w activity. Notes he has worse pain rom of the joints He has tried aleve, with his gout attack, helped some.he does not wish to take any regular medications. He is unable to tolerate more then a few days of colchicine even at once daily dosing. Background hx: Mohit Dotson is a 55 y.o. male who presents today for evaluation of pain all over. Pt notes he has had gout For a long time, and he stopped his allopurinol and his liver was elevated and he stoppedall off his medications at that time. He notes increased gout attacks this last year. He notes his uric acid was high over summer at 8.7, he was placed on allopurinol and his uric acid was down to 5.1. He was also noted to have htn and was treated for this. He had chest pain and an echo was done which was normal. He notes ankle pain bl, w swelling and he thought it was possibly his gout, and now is affecting allof his joints. He had testing for RF and CARY which were negative. He was sent to podiatry in [place] and rec rheumatology as his xrays of his feet and imaging was normal. He is concerned his cholesterol being elevated is causing his pain. He recently had a gout attack, he takes his allopurinol every day. He feels this recent attack was the worst he had, left toe. 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 He had 3 beers 2 days in a row, and this caused the attack. He has had crystal proven gout at [facility] He also has pain in his knees (feels his knees will give out), feels ankles with give out The joint pain started 2 years ago when he tried to go snowshoeing, it started in his ankles swelling, and the shoudlers, wrists, eblows, low back. He notes he has some aching in the am feels like he ran a marathon at [facility] the day he is in pain. He has am stiffness lasting one hour, worst in the ankle. Normally the pain improves with movement, notes the pain and swelling is intemittent. No enthesitis, no dacylitis. He notes some mcp and pip joint pain. He gets a sore in his mouth on occ, and his dentist said it was just an oral ulceration, and he notes he its it with a needle and it drains clear liquid and then it goes away and comes back He notes nail changes on his right first digit, left fisrt digit he broke the nail bed. Rheumatic history (x) means positive Iritis Dactylitis Pleuritis Pericarditis Oral / Nasal Ulcers PE/DVT Spontaneous Discoid SLE STD Raynaud???s Psoriasis Seizures Anemia Leucopenia X? He notes this happened years ago terated with steroids, he is ot meliton eof the details Thrombocytopenia Psychosis from a medical condition Health Care Maintenance Date Next Due Influenza vaccine Does not get Pneumonia vaccine TB Screen (PPD/QGA) DXA HCQ Eye Exam Viral Hepatitis Screen Review of Systems: X = positive response. Comments are only made for responses that are changed fromprevious, not discussed in HPI, or otherwise require clarification. Systemic Comments 1. Generalized pain x 2. Fatigue/tiredness 3. Fevers 4. Chills 5. Night sweats 6. Recent weight loss X 5 lbs 7. Recent Weight gain Head and neck 8. Headaches 9. Neck pain/stiffness 10. Lymphadenopathy 11. 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 Gritty eyes 14. Eye pain 15. Photophobia 16. Oral sores 17. Xerostomia 18. Jaw claudication Cardiopulmonary 19. Chest discomfort 20. Dyspnea X long standing, his whole life 21. Cough 22. Hemoptysis Gastrointestinal 23. Dysphagia 24. Heartburn 25. Nausea 26. Emesis 27. Abdominal pain 28. Hematochezia 29. Diarrhea 30. Constipation Genitourinary 31. Hematuria 32. Dysuria Musculoskeletal 33. Muscle weakness 34. Myalgia 35. Shoulder pain X intermittent 36. Raynaud's Neuropsychiatric 37. Paresthesia 38. Dysesthesia 39. Dizziness/vertigo 40. Anxiety 41. Depression 42. Cognitive problems 43. Initial insomnia x 44. Night awakenings X urinary symptoms 45. Nonrestorative sleep Dermatologic 46. Xerosis cutis 47. Photosensitivity 48. Rash PMHX htn hpl Gout, erosive, tophaceous ckd arthralgias Osteoarthritis hands/feet Recent CVA? Vs TIA Left sided n/t Mri wnl Physical Examination: BP 145/90 Comment: white coat syndrome Pulse 58 Temp 36.9 ??C (98.5 ??F) Resp 18 Ht 177.8 cm (5' 10) Wt 94.3 kg (208 lb) SpO2 98% BMI 29.84 kg/m2 General: Alert and oriented. Well developed and nourished. The patient did not appear distressed or uncomfortable. The patient ambulated without difficulty or assistance. Head: Scalp: Appeared normal. Eyes: PERRL. Extraocular muscles were intact. External Eye: No hyperemia of the conjunctiva noted Sclera: Not red. Lungs: Respiration rhythm and depth was normal. Clear to auscultation without rales or wheezing. Work of breathing was not increased. Cardiovascular system: Heart Rate and Rhythm: Normal. Heart Sounds: Normal. Murmurs: No murmurs were heard. Lower Extremity Edema: Not present. Musculoskeletal system: (???NML?? means normal; No swelling, warmth, tenderness, loss of range of motion, or deformity as applicable) Hands: MCP???s: NML PIP???s: NML DIP???s: oa changes, full fist and claw missing the 4th and 5th tips of his digits on the left Wrists: NML Elbows: NML Hips: NML Knees: NML Ankles: no sweling some ttp over the post medial malleolus, Feet: Left foot first mtp w bony enlargement and decr rom, no swelling, erythema or warmth noded Nails: No nail pitting, onycholysis or periungual erythema noted but he does have some dystrophic chnages on bl thumbs Neurologic: gait nl from all ext Skin: No rash seen Laboratory Data: rf neg Cary neg ua 300 +protein-repeat 100 protein Esr/crp nl Creatinine 1.5 Uric acid 5.1, most recent 4.0 Impression/Recommendations : Mohit Dotson is a 55 y.o. male w a hx of tophaceous erosive gout and osteoarthritis. Pt continues to have episodes poss palindromic inflamm arthritis. Gout: pt uric acid is at goal of <5 on last labs on allopurinol 300 mg daily. He has not had any further gout flares. Believe the majority of his pain is likely due to OA, and since he does not wish for regular use of anti-inflammatories, this is something he will likely have to live with. Given the question of palindromic rheumatism, will trial 10 mg of prednisone daily for a week and if he feels signifcantly betterwould trial plaquenil for him. If he does not imrpove, would recommend trial of Tylenol or topical therapy. Had discussed with him at last visit fish oil, glucosamine and chondroitin, and topical anti-inflamamtories, he has tried the fish oil and been on since May, but we have not yet tried the other options. Lumbago: likely facet arthropathy, given duration of symptoms plain films xavier medina and referred to physical therapy. CC: ANNI NICHOLAS MD documented in this encounter Plan of Treatment Scheduled Referrals Name Type Priority Associated Diagnoses Order S chedubarrie Referral to Outpatient Referral Routine Palindromic Ordered: Physical Therapy rheumatism 12/02/2015 documented as of this encounter Results XR Lumbar Spine 2 Or 3 Views (Generic) (12/02/2015 2:31 PM EDT) Anatomical Region Laterality Modality L-spine N/A Digital Radiography Specimen (Source) Anatomical Location Collection Method / Collectio n Time Received Time / Laterality Volume Impressions 12/02/2015 2:58 PM EDT 1. ??Listhesis of L5 on S1, 11 mm 2. ??Severe facet arthropathy at L4-5 an d L5-S1 3. ??Mild disc space narrowing at L5-S1 I have personally reviewed the image(s) and the residents interpretation and agree with the findings, RICKI HUTSON at 12/02/2015 2:58 PM Narrative 12/02/2015 2:58 PM EDT EXAMINATION: XR LUMBAR SPINE 2 OR 3 VIEWS (GENERIC) CLINICAL HISTORY: pt w l spine pain and suspect ??facet arthropathy pt notes pain is sig limiting him in daily activity, h as l 4/5 radiculopathy TECHNIQUE: AP and lateral views of the l umbar spine COMPARISON: None FINDINGS: Mild levocurvature of the lumbar spine c entered at its L3. Vertebral body heights are maintained. 11 mm of retrolisthesis of L5 on S1. Facet arthropathy at L4-5 and L5-S1. Disc space narrowing at L5-S1. Procedure Note Ricki Hicks MD - 12/02/2015 EXAMINATION: XR LUMBAR SPINE 2 OR 3 VIEW S (GENERIC) CLINICAL HISTORY: pt w l spine pain and suspect facet arthropathy pt notes pain is sig limiting him in daily activity, h as l 4/5 radiculopathy TECHNIQUE: AP and lateral views of the l umbar spine COMPARISON: None FINDINGS: Mild levocurvature of the lumbar spine c entered at its L3. Vertebral body heights are maintained. 11 mm of retrolisthesis of L5 on S1. Facet arthropathy at L4-5 and L5-S1. Disc space narrowing at L5-S1. IMPRESSION 1. Listhesis of L5 on S1, 11 mm 2. Severe facet arthropathy at L4-5 and L5-S1 3. 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
--- OUTSIDE RECORDS SUMMARY | 2021-08-29 11:45 | XMS_ITS | Encounter Summary ---
:1960 Author Organization [facility] [place] [address] Care Team Providers Name Role Phone Nicolás Nicholas MD Primary Care Provider Reason for Visit Reason Onset Date Comments Other 06/13/2016 araange referral Encounter Details Date Type Department Care Team Description 06/13/2016 Telephone Rheumatology at [facility] Araseli Warren Other ([facility] D emeritae referral) [place] [address] Social History Tobacco Use Types Packs/Day [...] this encounter Miscellaneous Notes Telephone Encounter - Araseli Warren - 06/13/2016 11:02 AM EDT Spoke with Ting, an [facility] heat treater helper, who asked for notes, labs and referral for Reji so he can be scheduled. Same was faxed and confirmation received. documented in this encounter Plan of Treatment Not on filedocumented as of this encounter Visit Diagnoses Not on filedocumented in this encounter Care Teams College President Relationship Specialty Start Date End Date Nicolás Nicholas MD PCP - General General Internal Medicine 04/05/15 documented as of this encounter
--- OUTSIDE RECORDS SUMMARY | 2021-08-29 11:45 | XMS_ITS | Encounter Summary ---
:1960 Author Organization [facility] [place] [address] Care Team Providers Name Role Phone Nicolás Nicholas MD Primary Care Provider Reason for Referral Consultation (Routine) - Specialty Diagnoses / Procedures Referred By Contact Refer red To Contact Dietitian Diagnoses Overweight(278.02) Gina Gutierrez DO [facility] [place] [address] Referral ID Status Reason Start Expiration Visits Visits Date Date Requested Authorized [id number] Continuity of 06/12/2016 12/09/2016 1 1 Care Encounter Details Date Type Department Care Team Description 06/12/2016 Office Visit Rheumatology at [facility] Brenda, Hypovitaminosis D; [facility] Gina Garcia DO Gout due to renal impairment, unspecifie d chronicity, unspecified site; [facility] Primary osteoarthritis invol ving multiple joints; [place], [place] [address] Overweight; [phone] RHEUMATOLOGY Dysuria [phone] [place] [address] Social History Tobacco Use Types Packs/Day Years [...] to sleep or slept in a senior care (including now)? Sex Assigned at Date Recorded Male 05/03/2020 3:20 PM EDT documented as of this encounter Last Filed Vital Signs Vital Sign Reading Time Taken Comments Blood Pressure 137/84 06/12/2016 12:57 PM EDT Pulse 53 06/12/2016 12:57 PM EDT Temperature - - Respiratory Rate 16 06/12/2016 12:57 PM EDT Oxygen Saturation 100% 06/12/2016 12:57 PM EDT Inhaled Oxygen Concentration - - Weight 97.1 kg (214 lb) 06/12/2016 12:57 PM EDT Height 177.8 cm (5' 10) 06/12/2016 12:57 PM EDT Body Mass Index 30.71 06/12/2016 12:57 PM EDT documented in this encounter Progress Notes Gina Gutierrez, - 06/12/2016 1:30 PM EDT Outpatient Rheumatology Followup Problem List: 1. Gout 2. OA. 3. TIA 4. CKD He states that he has always had joint pains that he thinks were normal and tolerable. Was off allopurinol for 10 years and is back on it for 1.5 years now. Has other chronic joint pains that feel different than his gout. Interim History: Mohit wrote wanting to talk about vitamin D supplementation and inability to loseweight. Overall, he feels he is getting better. Has been doing PT and that has really helped him. He gets touse the equipment even on his off days. He has a treadmill and a bike at the house. He is frustratedby his inability to lose weight. He has gone up and down by 5 pounds at a time. He has been keeping track of his food. He showed me his food log. I wonder if he is eating enough calories? PMH: CVA, HTN, hyperlipidemia, CKD Social Hx: never smoker Family Hx: father had gout Physical Exam: Not repeated today Assessment and Plan: This was a counseling dominated visit. I spent 30 minutes with the patient and 25 minutes was spent in discussion of the followin yo male with gout and osteoarthritis. He is doing better than at his last visit. I complimented him on his exercise routine and encouraged him to continue. i am going to refer him to a tank pumper to learn about counting calories. His goal weight is 200 pounds which would give him a BMI of 28. Check tsh and vitamin D today. Check u/a for dysuria today. RTC in 6 months. documented in this encounter Miscellaneous Notes Addendum Note - Minnie Vargas - 06/12/2016 2:11 PM EDT Addended by: MINNIE VARGAS on: 06/12/2016 02:11 PM Modules accepted: Orders documented in this encounter Plan of Treatment Scheduled Referrals Name Type Priority Associated Diagnoses Order S chedule Referral to Outpatient Referral Routine Overweight(278.02) Or dered: Nutrition Services 7 documented as of this encounter Procedures Procedure Name Priority Date/Time Associated Diagnosis Comme nts URINALYSIS WITH Routine 06/12/2016 2:41 PM Dysuria Result s for this REFLEX CULTURE EDT procedure are in the results section. VITAMIN D, Routine 06/12/2016 2:18 PM Hypovitaminosis D Resu lts for this 25-HYDROXY EDT procedure are i n the results section. TSH Routine 06/12/2016 2:18 PM Overweight Results f or this EDT procedure are i n the results section. documented in this encounter Results (ABNORMAL) Urinalysis with reflex Culture (06/12/2016 2:41 PM EDT) [facility] Method Time Signature Glucose UA Negative Negative [facility] mg/dL [facility] Protein UA 30 (A) Negative [facility]dL [facility] Bilirubin UA Negative Negative [facility] mg/dL [facility] Comment: Clinical correlation required for positi ve Urine Bilirubin results as false positive may occur with some drugs and d rug related products. If a false positive is suspected a serum total bili girard should be considered if clinically indicated. Urobilinogen UA Normal Normal mg/dL [facility] pH UA 7.0 5.0 - 8.0 [facility] Blood UA Negative Negative mg/dL [facility] Ketones UA Negative Negative mg/dL [facility] Nitrite UA Negative Negative [facility] Leukocytes UA Negative Negative [facility] Appearance UA Clear Clear [facility] Spec Swoope UA 1.006 1.002 - 1.030 [facility] Color UA Straw Yellow [facility] RBC UA Not Present 0 - 3 /HPF [facility] WBC UA <1 0 - 3 /HPF [facility] Squam Epith UA <1 <=4 /HPF [facility] Culture Reflexed No [facility] Specimen (Source) Anatomical Collection Method Collection Time Re ceived Time Location / / Volume Laterality Urine specimen 06/12/2016 2:41 06/12/2016 2:54 obtained by clean PM EDT PM EDT catch procedure (specimen) Resulting Agency Comment Spec In Lab Gina Gutierrez DO URINE ORDERABLES Performing Organization Address City/State/[place] [address] TSH (06/12/2016 2:18 PM EDT) P athologist Signature TSH 2.91 0.27 - 4.20 [facility] mcIU/mL [facility] Specimen Anatomical Collection Method Collection Time Receive d Time (Source) Location / / Volume Laterality Blood specimen 06/12/2016 2:18 PM 017 2:24 (specimen) EDT PM EDT Resulting Agency Comment Spec In Lab Gina Gutierrez DO CHEMISTRY ORDERABLES Performing Organization Address City/[facility]/ZIP Code Phon e Number [address] (ABNORMAL) Vitamin D, 25-Hydroxy (06/12/2016 2:18 PM EDT) P athologist Signature 25-OH Vit D 28 (L) 30 - 100 [facility] Total ng/mL [facility] Comment: Deficient <10 ng/mL Insufficient 10 to 29 ng/mL Sufficient 30 to 100 ng/mL Potential Intoxication >100 ng/mL According to the [place] National Osteoporosi s Foundation, Vitamin D concentrations >30 ng/mL are sufficient to protect bone health. ??The National Kidney Foundation has similarly stated that pat ients with Vitamin D concentrations <30ng/mL should be considered to be insu fficient or deficient. http://[employer]/DHKnowledgeVisionnatlkidneyfoundat ion http://[employer]/DHMCVitD [employer] Vitamin D Immunoassay detec ts both 25-OH Vitamin D2 and 25-OH Vitamin D3, but only a total Vitamin D c oncentration is reported. Specimen Anatomical Collection Method Collection Time Receive d Time (Source) Location / / Volume Laterality Blood specimen 06/12/2016 2:18 PM 017 3:34 (specimen) EDT PM EDT Resulting Agency Comment Spec In Lab Gina Gutierrez DO CHEMISTRY ORDERABLES Performing Organization Address City/[facility]/[place] [address] documented in this encounter Visit Diagnoses Diagnosis Hypovitaminosis D Unspecified vitamin D deficiency Gout due to renal impairment, unspecifie d chronicity, unspecified site Primary osteoarthritis involving multipl e joints Overweight(278.02) Overweight Dysuria documented in this encounter Care Teams Breaker Machine Tender Relationship Specialty Start Date End Date Nicolás Nihcolas MD PCP - General General Internal Medicine 04/05/15 documented as of this encounter
--- OUTSIDE RECORDS SUMMARY | 2021-08-29 11:45 | XMS_ITS | Encounter Summary ---
:1960 Author Organization [facility] [place] [address] Care Team Providers Name Role Phone Nicolás Nicholas MD Primary Care Provider Encounter Details Date Type Department Care Team Description 04/05/2015 Hospital Encounter XRay at [facility] Nona Sams Gout, unspecified cause, uns pecified chronicity, unspecified site; [address] [facility] [address], CKD (chronic kidney disease), unspecifie d stage; [facility] Proteinuria; [id number] [place] Gynecomastia [phone] RHEUMATOLOGY DEP [place], [place] [address] Social History Tobacco Use Types Packs/Day Years Used Date Never Smoker Physical Activity Answer Date Recorded On average, [...] place to sleep or slept in a fpc (including now)? Sex Assigned at Date Recorded Male 05/03/2020 3:20 PM EDT documented as of this encounter Medications at Time of Discharge Medication Sig Dispensed Refills Start Date End Date doxazosin (CARDURA) 4 mg Take 4 mg by mouth 0 01/18/2017 TabletIndications: Gout, nightly. unspecified cause, unspecified chronicity, unspecified site, CKD (chronic kidney disease), unspecified stage, Proteinuria, Gynecomastia atenolol (TENORMIN) 50 mg Take 50 mg by mouth 0 05/23/2017 TabletIndications: Gout, daily. unspecified cause, unspecified chronicity, unspecified site, CKD (chronic kidney disease), unspecified stage, Proteinuria, Gynecomastia allopurinol (ZYLOPRIM) Take 300 mg by mouth 0 03/07/2017 300 mg TabletIndications: daily. Gout, unspecified cause, unspecified chronicity, unspecified site, CKD (chronic kidney disease), unspecified stage, Proteinuria, Gynecomastia colchicine (COLCRYS) 0.6 Take 0.6 mg by mouth 0 02/08/2016 mg TabletIndications: 2 times daily as Gout, unspecified cause, needed. Reported on unspecified chronicity, 01/31/2016 unspecified site, CKD (chronic kidney disease), unspecified stage, Proteinuria, Gynecomastia documented as of this encounter Plan of Treatment Not on filedocumented as of this encounter Procedures Procedure Name Priority Date/Time Associated Diagnosis Comme nts XR HANDS MIN 3 Routine 04/05/2015 2:32 PM Gout, unspecified Re sults for this VIEWS BILAT EST cause, unspecified procedure are in chronicity, the results unspecified site section. CKD (chronic kidney disease), unspecified stag e Proteinuria Gynecomastia documented in this encounter Results XR Bilateral Hands Minimum 3 Views (04/05/2015 2:32 PM EST) Anatomical Region Laterality Modality Hand Bilateral Digital Radiography Specimen (Source) Anatomical Location Collection Method / Collectio n Time Received Time / Laterality Volume Impressions 04/05/2015 4:45 PM EST IMPRESSION: 1. ?? 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 2. ??No erosions. Narrative 04/05/2015 4:45 PM EST EXAMINATION: XR BILATERAL HANDS MINIMUM 3 VIEWS/BILAT CLINICAL HISTORY: Pt with bl hand pain i n the mcps and pips, please assess for inflamm changes TECHNIQUE: 4 views each COMPARISON: None FINDINGS: BONES : 1. ??Normal bone mineralization. 2. ??Left Fourth and fifth distal phalan x: Amputated distal gerri likely related to remote trauma. SOFT TISSUES: Symmetric. JOINTS: IP joints- normal MCP joints- normal and no erosions Basal and scaphoid trapezial trapezoid j oints- bilateral small osteophytes with preserved joint spaces representing mild osteoarthropathy. Radial carpal joint- symmetric and no er osions Distal radioulnar joint - normal alignme nt. Procedure Note Cyndy Swenson MD - 04/05/2015Formatt ing of this note might be different from the original. EXAMINATION: XR BILATERAL HANDS MINIMUM 3 VIEWS/BILAT CLINICAL HISTORY: Pt with bl hand pain i n the mcps and pips, please assess for inflamm changes TECHNIQUE: 4 views each COMPARISON: None FINDINGS: BONES : 1. Normal bone mineralization. 2. Left Fourth and fifth distal phalanx: Amputated distal gerri likely related to remote trauma. SOFT TISSUES: Symmetric. JOINTS: IP joints- normal MCP joints- normal and no erosions Basal and scaphoid trapezial trapezoid j oints- bilateral small osteophytes with preserved joint spaces representing mild osteoarthropathy. Radial carpal joint- symmetric and no er osions Distal radioulnar joint - normal alignme nt. IMPRESSION IMPRESSION: 1. Amputated left fourth and fifth dista l phalanges likely related to remote trauma. 2. No erosions. Nona OWUSU DX ORDERABLES documented in this encounter Visit Diagnoses Diagnosis Gout, unspecified cause, unspecified chr onicity, unspecified site CKD (chronic kidney disease), unspecifie d stage Proteinuria Gynecomastia Hypertrophy of breast documented in this encounter Care Teams Molder Helper Relationship Specialty Start Date End Date iNcolás Nicholas MD PCP - General General Internal Medicine 04/05/15 documented as of this encounter
--- OUTSIDE RECORDS SUMMARY | 2021-08-29 11:45 | XMS_ITS | Encounter Summary ---
:1960 Author Organization [facility] [place] [address] Care Team Providers Name Role Phone Parker Dang MD Primary Care Provider Encounter Details Date Type Department Care Team Description 04/01/2017 External Results [place] [facility] [place] [address] [place] [address] Social History Tobacco Use Types Packs/Day Years [...] Name Priority Date/Time Associated Diagnosis Comme nts EXTERNAL COLONOSCOPY Routine 08/29/2016 Results for this procedure are i n the results section . documented in this encounter Results (ABNORMAL) External Colonoscopy (08/29/2016) [facility] gist Method Time Signature External normal EXTERNAL LAB Colonoscopy (External Lab) Comment: polyp-awaiting biopsy Specimen (Source) Anatomical Location Collection Method / Collectio n Time Received Time / Laterality Volume 08/29/2016 Narrative This result has an attachment that is no t available. Historical Provider MD PROCEDURE/MINOR SURGICAL ORD ERABLES Performing Organization Address City/State/ZIP Code Phon e Number EXTERNAL LAB documented in this encounter Visit Diagnoses Not on filedocumented in this encounter Care Teams Research Neuropsychologist Relationship Specialty Start Date End Date Parker Dang MD PCP - General General Internal Medicine 10/01/16 [facility] [place] [address] documented as of this encounter
--- OUTSIDE RECORDS SUMMARY | 2021-08-29 11:45 | XMS_ITS | Encounter Summary ---
:1960 Author Organization [facility] [place] [address] Care Team Providers Name Role Phone Parker Dang MD Primary Care Provider Encounter Details Date Type Department Care Team Description 05/23/2017 Telephone Urology at [facility] Ana Dawn, [facility] [place] [address] [facility] [phone] UROLOGY DEPT. [place], [place] [address] (Wo rk) Social History Tobacco [...] encounter Miscellaneous Notes Telephone Encounter - Troy Tubbs RN - 05/23/2017 2:19 PM EDT Verified patient name and date of Spoke with the pt who says that he gave a urine specimen for UA and culture to [facility]. Told him that due to his symptoms as stated in his previous e-mails, Dr Clements would like him to start Bactrim DS PO BID x 7 days. The pt agrees and knows that he may need to switch antibiotics depending on the final results of theculture. Telephone Encounter - Carlos Schneider - 05/23/2017 1:13 PM EDT PHONE: [phone] Please call the patient and let him know when an Rx has been called in for his UTI. He is not at home and wants to know when he can run to the pharmacy to pick it up. documented in this encounter Plan of Treatment Not on filedocumented as of this encounter Visit Diagnoses Not on filedocumented in this encounter Care Teams Automotive Parts Person Relationship Specialty Start Date End Date Parker Dang MD PCP - General General Internal Medicine 10/01/16 [facility] [place] [address] documented as of this encounter
--- OUTSIDE RECORDS SUMMARY | 2021-08-29 11:45 | XMS_ITS | Encounter Summary ---
:1960 Author Organization [facility] [place] [address] Care Team Providers Name Role Phone Nicolás Nicholas MD Primary Care Provider Reason for Visit Reason Onset Date Comments Other 03/08/2016 Follow Up Encounter Details Date Type Department Care Team Description 03/08/2016 Telephone Rheumatology at [facility] Ashtyn García RN Other (Follow Up) [place] [address] Social History Tobacco Use Types Packs/Day [...] this encounter Miscellaneous Notes Telephone Encounter - Ashtyn García, RN - 03/08/2016 1:17 PM EST You are correct - he does not need more allopurinol. His uric acid is low enough for his body to mobilize the crystals. 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 Patients are typically quite ill with that with that and require a lot of prednisone or other immunosuppressive medications to make it go away. Thank you again! Gina I spoke with Vladimir and he accepts message above. He will try to be more short and concise in future messages or he will call the nurse to discuss. Telephone Encounter - Ashtyn García RN - 03/08/2016 11:55 AM EST I spoke with Vladimir on the phone today (25 minutes) he wants to know if Allopurinol is going to be increased and when will the uric acid be out of his joints? States he is worried about having a Stroke again. I advised Uric Acid on 02/23/2016 was 4.1 and that is well below the level we would want him to be at in order to increase Allopurinol. Advised I would clarify with Dr. Gutierrez and let him know. Mohit goes over the email he sent to Dr. Gutierrez multiple times in our conversation. I advisedthat we don't encourage intranet searching for a diagnosis, as not all sites are accurate. Advised Vladimir to make an appointment with Dr. Gutierrez to address issues in his email as he has many questions. Vladimir does not want to do this. Vladimir wants an opinion on Sweet Syndrome from this nurse or provider. I told Vladimir that I am unable to comment or give an opinion on Sweet Syndrome. I advised Vladimir I would share his questions or concerns with Dr. Gutierrez in a scaled down manner.If they could not be addressed then he would need to make an appointment. Telephone Encounter - Ashtyn García RN - 03/08/2016 8:15 AM EST Left message at home and on Cell voicemail for Vladimir to RTC to nurse. Telephone Encounter - Ashtyn García RN - 03/08/2016 8:13 AM EST ----- Message from Gina Gutierrez DO sent at 03/07/2016 2:51 PM EST ----- Regarding: FW: call Contact: The patient I told you about..... ----- Message ----- From: Corine Jacques Sent: 03/07/2016 11:21 AM To: Gina Gutierrez DO Subject: call Dr. Gutierrez, Mr. Dotson called and would like you to call him. Did not want to speak with nurse. He has multiple questions and concerns that he needs to discuss with you. Thank you. Corine documented in this encounter Plan of Treatment Not on filedocumented as of this encounter Visit Diagnoses Not on filedocumented in this encounter Care Teams Rn Orthopedic Relationship Specialty Start Date End Date Nicolás Nicholas MD PCP - General General Internal Medicine 04/05/15 documented as of this encounter
--- OUTSIDE RECORDS SUMMARY | 2021-08-29 11:45 | XMS_ITS | Encounter Summary ---
:1960 Author Organization [facility] Address [facility] [address] [place] [address] Care Team Providers Name Role Phone Nicolás Nicholas MD Primary Care Provider Reason for Visit Reason Onset Date Comments Prior Authorization 02/10/2016 DICLOFENAC-IN [place] SS Encounter Details Date Type Department Care Team Description 02/10/2016 Telephone Rheumatology at [facility] Yousuf Horowitz Prior Authorization [facility] ([facility] [address] [employer]) [place] [address] Social History Tobacco Use Types Packs/Day [...] minutes do you engage in exercise at [facility] 10 min 09/23/2020 level? Housing Stability Answer [...] this encounter Miscellaneous Notes Telephone Encounter - Aruna Correa - 02/10/2016 4:27 PM EST PA approval #[id number]. 200 for 25 Approved 02/10/16 to 02/09/17 Faxed to Pharmacy. Telephone Encounter - Aruna Correa - 02/10/2016 2:30 PM EST Request for further information sent for PA on Diclofenac Gel 1%. Faxed back following information: taking allopurinol 100mg QD 08/30/15 - present without sufficient relief. Avoiding oral NSAIDs given recent possible TIA/CVA. Telephone Encounter - Yousuf Horowitz - 02/10/2016 12:00 PM EST SENT FAX REQUEST TO [place] MEDICAID FOR DICLOFENAC [phone] WILL WAIT FOR DECISION documented in this encounter Plan of Treatment Not on filedocumented as of this encounter Visit Diagnoses Not on filedocumented in this encounter Care Teams Dressing Room Porter Relationship Specialty Start Date End Date Nicolás Nicholas MD PCP - General General Internal Medicine 04/05/15 documented as of this encounter
--- OUTSIDE RECORDS SUMMARY | 2021-08-29 11:45 | XMS_ITS | Encounter Summary ---
:1960 Author Organization [place] [address] Care Team Providers Name Role Phone Anni Nicholas MD Primary Care Provider Reason for Visit Consultation (Routine) - Closed Specialty Diagnoses / Procedures Referred By Contact Refer red To Contact Rheumatology Diagnoses polyarthalgic Anni Nicholas MD [facility] Rheumatology 5c [address] [place] [address] [place], [place] Phone: [phone] Referral ID Status Reason Start Date Expiration Visits Visits Date Requested Authorized [id number] Closed Connection 03/10/2015 03/09/2016 1 1 Center Encounter Details Date Type Department Care Team Description 04/05/2015 Office Visit Rheumatology at [facility] Nona Sams Gout, unspecified cause, uns pecified chronicity, unspecified site; [facility] D, DO CKD (chronic kidney disease), unspecifie d stage; Drive [facility] Proteinuria; [place] [address] Gynecomastia; [phone] RHEUMATOLOGY DEP T Weight gain; [place], [place] [address] Pain in joint, pain in unspecified joint [phone] (Wo rk) Social History Tobacco Use Types [...] place to sleep or slept in a nursing home (including now)? Sex Assigned at Date Recorded Male 05/03/2020 3:20 PM EDT documented as of this encounter Last Filed Vital Signs Vital Sign Reading Time Taken Comments Blood Pressure 154/90 04/05/2015 12:51 PM EST Pulse 53 04/05/2015 12:51 PM EST Temperature 36.8 ??C (98.3 ??F) 04/05/2015 12:51 PM EST Respiratory Rate - - Oxygen Saturation 97% 04/05/2015 12:51 PM EST Inhaled Oxygen Concentration - - Weight 96.6 kg (213 lb) 04/05/2015 12:51 PM EST Height 177.8 cm (5' 10) 04/05/2015 12:51 PM EST Body Mass Index 30.56 04/05/2015 12:51 PM EST documented in this encounter Progress Notes Nona Sams, - 04/05/2015 1:05 PM EST Rheumatology Outpatient Consultation Note Reason for Consult: The patient is seen at the request of Dr. ANNI NICHOLAS MD for evaluation and treatment of pain all over History of Present Illness: Mohit Dotson is a 55 y.o. male who presents today for evaluation of pain all over. Pt notes he has had gout For a long time, and he stopped his allopurinol and his liver was elevated and he stoppedall off his medications at that time. He notes increased gout attacks this last year. He notes his uric acid was high over daxsummer at 8.7, he was placed on allopurinol [...] negative. He was sent to podiatry in [place] and [facility] rheumatology as his xrays of his feet [...] He has had crystal proven gout at [facility] He also has pain in his knees (feels his knees will give out), feels ankles with give out The joint pain started 2 years ago when he tried to go snowshoeing, it started in his ankles swelling, and the shoudlers, wrists, eblows, low back. He notes he has some aching in the am feels like he ran a marathon at [facility] the day he is in pain. He [...] Comments 1. Generalized pain x 2. Fatigue/tiredness X, 3. Fevers 4. Chills 5. Night sweats 6. Recent weight loss 7. Recent Weight gain X, 30 lbs, over 18 months Head and neck 8. Headaches 9. Neck pain/stiffness 10. Lymphadenopathy 11. 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 Gritty eyes 14. Eye pain 15. Photophobia 16. Oral sores X one 17. Xerostomia 18. Jaw claudication Cardiopulmonary 19. Chest discomfort 20. Dyspnea X long standing, his whole life 21. Cough 22. Hemoptysis Gastrointestinal 23. Dysphagia 24. Heartburn 25. Nausea 26. Emesis 27. Abdominal pain 28. Hematochezia 29. Diarrhea 30. Constipation Genitourinary 31. Hematuria 32. Dysuria None but reports his urine smells, reports fish odor syndrome, trimethylmuria-he is concerned, ua in 7.15 300 +protein Musculoskeletal 33. Muscle weakness 34. Myalgia 35. Shoulder pain x 36. Raynaud's Neuropsychiatric 37. Paresthesia 38. Dysesthesia 39. Dizziness/vertigo 40. Anxiety 41. Depression 42. Cognitive problems 43. Initial insomnia x 44. Night awakenings X urinary symptoms 45. Nonrestorative sleep Dermatologic 46. Xerosis cutis 47. Photosensitivity 48. Rash PMHX htn hpl Gout ckd arthralgias SurgHX none Family Hx: M:unknown F: throat cancer, smoker Siblings:unknown Daughter healthy (-)RA, (-)lupus, (-)scleroderma, (-)sjogren's, (-)gout meds Allopurinol 300 mg daily Atenolol 50 Doxazosin 4 mg Colchicine 0.6 mg bid as needed Social Hx: History Social History ??? Marital Status: Single Spouse Name: N/A Number of Children: N/A ??? Years of Education: N/A Social History Main Topics ??? Smoking status: Never Smoker ??? Smokeless tobacco: None ??? Alcohol Use: None ??? Drug Use: None ??? Sexual Activity: None Other Topics Concern ??? None Social History Narrative ??? None Wine with dinnter nightly 2.5 glasses daily on ice Physical Examination: BP 154/90 mmHg Pulse 53 Temp(Src) 36.8 ??C (98.3 ??F) (Oral) Ht 177.8 cm (5' 10) Wt 96.616 kg (213 lb) BMI 30.56 kg/m2 SpO2 97% General: Alert and oriented. Well developed and nourished. The patient did not appear distressed or uncomfortable. The patient ambulated without difficulty or assistance. Head: Scalp: Appeared normal. Eyes: PERRL. Extraocular muscles were intact. External Eye: No hyperemia of the conjunctiva noted Sclera: Not red. Oral cavity: Buccal Mucosa showed no ulcer. Tongue did not have an ulcer. Salivary Glands: No xerostomia was observed. No parotid swelling noted. Pharynx: Pharynx did not have an ulcer. Lymph Nodes: Cervical, supraclavicular, submandibular, preauricular, posterior auricular and submental lymph nodes were non-palpable. Lungs: Respiration rhythm and depth was normal. [...] applicable) Hands: MCP???s: NML PIP???s: NML DIP???s: NML, full fist and claw missing the 4th and 5th tips of his digits on the left Wrists: NML Elbows: NML Shoulders: +crossed adduction and ttp ove the AC joint bl Cervical Spine: NML Thoracic Spine: NML Lumbosacral Spine: NML Hips: NML Knees: NML Ankles: NML Feet: NML, neg mtp compression Nails: No nail pitting, onycholysis or periungual erythema noted but he does have some dystrophic chnages on bl thumbs Neurologic: gait nl from all ext Skin: No rash seen But bl gynecomastia noted Laboratory Data: rf neg [place] neg ua 300 +protein Creatinine 1.5 Uric acid 5.1 Studies: Impression/Recommendations : Mohit Dotson is a 55 y.o. male who presents today with bl ankle, knee and shoulder pain as well as occ mcp and pip pain and lumbago. On exam today he has no pain or swelling, he does note intermittnet swelling of the knees and ankles as well as pain that is intermittent. DDx includes pallindromic rheumatism-possible w intermittnet symtpoms, he can trial colchcine(which he already has for his gouty arthropathy and see if his sympotms improve, could also consider plaquenil). Today hedid not have any swelling which makes the diagnosis more difficult Gout: certaintly his toe symptoms are consistent w gouty arthropathy, likely d/t dietary indiscretion, will repeat uric acid to ensure at goal, discussed low dietary purine intake, his other sympotms don't seem consistent with this other than the intermittent nature. Pseudogout: will assess plain films of the knees for chondrocal, though again hx not entirely consistent Oa: his symtpoms of giving out seem consistent, but oa of the ankles is unusual, will assess plainfilms, he does have AC OA Ra: RF neg, no synovitis on exam today, will check ccp and inflamm markers, plain films hands, but feel this is less likely Seroneg spondy: no psoriasis, no IBD sympotms, no sig low back or sij symptoms suggestive Sarcoid: usual in male, but could consider, usu is le large joint predominant. If other changes come up woud consider cxr or MONIKA level Gynecomastia: fu with pcm but check tsh and testosterone Proteinuria: pt w 300+ protein on ua In August, repeat UA today, repeat renal function givne CKD. Fu in 4 weeks CC: ANNI NICHOLAS MD documented in this encounter Plan of Treatment Not on filedocumented as of this encounter Procedures Procedure Name Priority Date/Time Associated Comments Diagnosis ANTI-CYCLIC Routine 04/05/2015 2:07 PM Gout, unspecified Resu lts for this CITRULLINATED PEPTIDE EST cause, unspecified procedure are in AB chronicity, the results unspecified site section. CKD (chronic kidney disease), unspecified stag e Proteinuria Gynecomastia HEMOGRAM Routine 04/05/2015 2:07 PM Gout, unspecified Resu lts for this EST cause, unspecified procedure are in chronicity, the results unspecified site section. CKD (chronic kidney disease), unspecified stag e Proteinuria Gynecomastia DIFFERENTIAL, Routine 04/05/2015 2:07 PM Gout, unspecified Res ults for this AUTOMATED EST cause, unspecified procedure are in chronicity, the results unspecified site section. CKD (chronic kidney disease), unspecified stag e Proteinuria Gynecomastia URINALYSIS WITH REFLEX Routine 04/05/2015 2:07 PM Gout, unspec ified Results for this CULTURE EST cause, unspecified procedure are in chronicity, the results unspecified site section. CKD (chronic kidney disease), unspecified stag e Proteinuria Gynecomastia SEDIMENTATION RATE Routine 04/05/2015 2:07 PM Gout, unspecifie d Results for this EST cause, unspecified procedure are in chronicity, the results unspecified site section. CKD (chronic kidney disease), unspecified stag e Proteinuria Gynecomastia CBC (WITH DIFF) Routine 04/05/2015 2:07 PM Gout, unspecified EST cause, unspecified chronicity, unspecified site CKD (chronic kidney disease), unspecified stag e Proteinuria Gynecomastia CRP, CARDIAC RISK (HS Routine 04/05/2015 2:07 PM Gout, unspeci fied Results for this CRP) EST cause, unspecified procedure are in chronicity, the results unspecified site section. CKD (chronic kidney disease), unspecified stag e Proteinuria Gynecomastia URIC ACID Routine 04/05/2015 2:07 PM Gout, unspecified Resu lts for this EST cause, unspecified procedure are in chronicity, the results unspecified site section. CKD (chronic kidney disease), unspecified stag e Proteinuria Gynecomastia TSH Routine 04/05/2015 2:07 PM Gout, unspecified Resu lts for this EST cause, unspecified procedure are in chronicity, the results unspecified site section. CKD (chronic kidney disease), unspecified stag e Proteinuria Gynecomastia TESTOSTERONE, TOTAL Routine 04/05/2015 2:07 PM Gout, unspecifi ed Results for this EST cause, unspecified procedure are in chronicity, the results unspecified site section. CKD (chronic kidney disease), unspecified stag e Proteinuria Gynecomastia COMPREHENSIVE Routine 04/05/2015 2:07 PM Gout, unspecified Res ults for this METABOLIC PANEL EST cause, unspecified proced ure are in (NON-FASTING) chronicity, the results unspecified site section. CKD [...] to remote trauma. 2. No erosions. Nona Sams DO IMG DX ORDERABLES Differential, Automated (04/05/2015 2:07 PM EST) P athologist Signature Neutrophils % 62.7 % CERNER MILLENNIUM Neutr Abs (ANC) 4.01 1.50 - CERNER 6.30 MILLENNIUM x10(3)/mcL Lymphocytes % 22.6 % CERNER MILLENNIUM Lymphocytes Abs 1.4 1.0 - 3.6 CERNER x10(3)/mcL MILLENNIUM Monocytes % 9.6 % CERNER MILLENNIUM Monocyte Abs 0.6 0.2 - 1.0 CERNER x10(3)/mcL MILLENNIUM Eosinophils % 4.1 % CERNER MILLENNIUM Eosinophils Abs 0.3 0.0 - 0.5 CERNER x10(3)/mcL MILLENNIUM Basophils % 0.5 % CERNER MILLENNIUM Basophils Abs 0.0 0.0 - 0.2 CERNER x10(3)/mcL MILLENNIUM Immature Gran % 0.50 % CERNER MILLENNIUM Comment: Immature granulocytes(IG's)percentage an d absolute count will include metamyelocytes, myelocytes, and promyelo cytes. Blood smears from CBCs yielding IG's will be scanned manually for concor dance. If this scan disagrees with the automated IG or if promyelocytes are not ed, a manual differential will be performed. Honey Gran Abs 0.03 0.00 - 0.05 x10(3)/mcL CER NER MILLENNIUM Specimen Anatomical Collection Method Collection Time Receive d Time (Source) Location / / Volume Laterality Blood specimen 04/05/2015 2:07 PM 016 2:27 (specimen) EST PM EST Resulting Agency Comment Spec In Lab Nona Sams DO HEMATOLOGY ORDERABLES Performing Organization Address City/State/[place] [address] CERNER MILLENNIUM Hemogram (04/05/2015 2:07 PM EST) P athologist Signature WBC 6.4 4.0 - 10.0 CERNER x10(3)/mcL MILLENNIUM RBC 4.74 4.63 - 6.08 CERNER x10(6)/mcL MILLENNIUM Hemoglobin 14.9 13.7 - 17.5 CERNER gm/dL MILLENNIUM Hematocrit 42.3 40.0 - 51.0 CERNER % MILLENNIUM MCV 89.2 79.0 - 92.0 CERNER fL MILLENNIUM MCH 31.4 25.6 - 32.2 CERNER pg MILLENNIUM MCHC 35.2 32.0 - 36.5 CERNER gm/dL MILLENNIUM Platelets 182 145 - 370 CERNER x10(3)/mcL MILLENNIUM RDWSD 43.9 35.0 - 46.0 CERNER fL MILLENNIUM RDWCV 13.5 10.9 - 14.4 CERNER % MILLENNIUM MPV 11.7 9.0 - 12.0 CERNER fL MILLENNIUM Specimen Anatomical Collection Method Collection Time Receive d Time (Source) Location / / Volume Laterality Blood specimen 04/05/2015 2:07 PM 016 2:27 (specimen) EST PM EST Resulting Agency Comment Spec In Lab Nona Sams DO HEMATOLOGY ORDERABLES Performing Organization Address City/State/[place] [address] CERNER MILLENNIUM Testosterone, total (04/05/2015 2:07 PM EST) athologist Signature Testo Total 2.87 2.80 - 8.00 CERNER ng/mL MILLENNIUM Comment: Reference Ranges: ? Males (7t o18 years) ?Females (8-18 years) Harpreet Stage ?ng/m l ? ng/ml ? 1 ? <0.0 3 ? <0.03 to 0.06 ? 2 ? <0.0 3 to 4.32 ? <0.03 to 0.10 ? 3 ? 0.65 to 7.78 ?<0.03 to 0.24 ? 4 ? 1.80 to 7.63 ?<0.03 to 0.27 ? 5 ? 1.88 to 8.82 ?<0.05 to 0.38 ?Males 1 8 years to adult ? Females 18 years to adult ? 2.80 t o 8.00 ng/ml ?0.06 to 0.82 ng/ml Stated adult reference ranges derived fr om review of Rc E170 Testosterone reagent package insert 11/, V8 Stated pediatric reference ranges derive d from review of Rc E170 Testosterone II reagent package insert 0 08/27, V2. Specimen Anatomical Collection Method Collection Time Receive d Time (Source) Location / / Volume Laterality Blood specimen 04/05/2015 2:07 PM 016 2:27 (specimen) EST PM EST Resulting Agency Comment Spec In Lab Nona Sams DO CHEMISTRY ORDERABLES Performing Organization Address City/State/[place] [address] KRISSNER MILLENNIUM TSH (04/05/2015 2:07 PM EST) P athologist Signature TSH 3.57 0.27 - 4.20 CERNER mcIU/mL MILLENNIUM Specimen Anatomical Collection Method Collection Time Receive d Time (Source) Location / / Volume Laterality Blood specimen 04/05/2015 2:07 PM 016 2:27 (specimen) EST PM EST Resulting Agency Comment Spec In Lab Nona Sams DO CHEMISTRY ORDERABLES Performing Organization Address City/[facility]/[place] [address] CERNER MILLENNIUM High Sensitivity CRP (04/05/2015 2:07 PM EST) P athologist Signature CRP High Sens 1.5 mg/L CERNER MILLENNIUM Comment: Interpretations: 1) For accurate cardiac risk assessment, the average of 2 values >2 weeks apart should be obtained (ref 1&2). A value >1 0 mg/L indicates an inflammatory condition, concentrations >10 mg/L shoul d not be used for cardiac risk assessment. ?<1.0 mg/L: low risk ?1.0 - 3.0 mg/L: moderate risk ?>3.0 mg/L: high risk groups for fu ture cardiovascular events 2) The general reference range of appare ntly healthy individuals using this test is <5.0 mg/L (derived from the test package insert) References: 1. Youssef TA et. al. ??AHA/CDC Scientif ic Statement: Markers of Inflammation and Cardiovascular Disease. ??Circulatio n 2003; 107:499-511 2. Ridker PM. ??Clinical applications of C-reactive protein for cardiovascular disease detection and prevention. ??Circ ulation 2003; 107:363-369 Specimen Anatomical Collection Method Collection Time Receive d Time (Source) Location / / Volume Laterality Blood specimen 04/05/2015 2:07 PM 016 2:27 (specimen) EST PM EST Resulting Agency Comment Spec In Lab Nona Sams DO CHEMISTRY ORDERABLES Performing Organization Address City/[facility]/ZIP Code Phon e Number [address] CERNER MILLENNIUM Sedimentation rate (04/05/2015 2:07 PM EST) P athologist Signature Sed Rate 11 0 - 15 CERNER mm/hr MILLENNIUM Specimen Anatomical Collection Method Collection Time Receive d Time (Source) Location / / Volume Laterality Blood specimen 04/05/2015 2:07 PM 016 2:27 (specimen) EST PM EST Resulting Agency Comment Spec In Lab Nona Sams DO HEMATOLOGY ORDERABLES Performing Organization Address City/[facility]/ZIP Code Phon e Number [address] CERNER MILLENNIUM Cyclic Citrullinated Peptide (04/05/2015 2:07 PM EST) athologist Signature Anti-Cyc Cit <8.0 <=17.0 CERNER Peptide unit/mL MILLENNIUM Specimen Anatomical Collection Method Collection Time Receive d Time (Source) Location / / Volume Laterality Blood specimen 04/05/2015 2:07 PM 016 2:27 (specimen) EST PM EST Resulting Agency Comment Spec In Lab Nona Sams DO CHEMISTRY ORDERABLES Performing Organization Address [facility] [place] [address] CERNER MILLENNIUM (ABNORMAL) Comprehensive metabolic panel (non-fasting) (04/05/2015 2:07 PM EST) athologist Signature Glucose Lvl 96 65 - 199 CERNER mg/dL MILLENNIUM Comment: Diabetes: >=200 mg/dL plus symp toms BUN 26 (H) 10 - 20 mg/dL CERNER MILLENNIU M Creatinine 1.57 (H) 0.80 - 1.50 mg/dL CERNER MILL ENNIUM Comment: Please note that the pediatric reference intervals supplied above were not validated at [facility]. Results from pediatri c patients should be interpreted in conjunction to the patient's age, height and muscle mass. Sodium 139 135 - 145 mmol/L CERNER PEDRO LUIS NIUM Potassium 4.6 3.5 - 5.0 mmol/L CERNER PEDRO LUIS NIUM Comment: Please note: ??Patients with WBC >100,00 0 may have falsely elevated Potassium levels. ??For accurate Potassium quantif ication in these patients send serum separator tube (gold top) for subsequent determinations. ??Contact the Clinical Chemistry Laboratory if there are any qu estions. Chloride 102 98 - 107 mmol/L CERNER MILLENN IUM CO2 24 22 - 31 mmol/L CERNER MILLENNI UM Anion Gap 13 5 - 15 mmol/L [facility] MILL[facility] M Calcium 10.0 8.5 - 10.5 mg/dL [facility] PEDRO LUIS NIUM Total Protein 7.9 6.1 - 8.0 gm/dL [facility] MIL LENNIUM Albumin 4.6 3.2 - 5.2 gm/dL CERNER MILLENN IUM AST 18 0 - 39 unit/L CERNER MILLENNIU M ALT 37 0 - 55 unit/L CERNER MILLENNIU M Alk Phos 51 40 - 120 unit/L [facility] MILLENN IUM Total Bilirubin 0.3 0.2 - 1.3 mg/dL [facility] M ILLENNIUM Bili, Direct 0.1 0.0 - 0.3 mg/dL [facility] MILL ENNIUM Estimated GFR 46 (L) >=60 CERNER MILLENNIU M Comment: This estimated GFR (eGFR) value was calc ulated using the MDRD equation which has been validated on patients between t he ages of 18 and 70. The MDRD should not be used to assess kidney function in patients < 18 years of age or in patients with extremes of body mass, or in patients with acute kidney failure. This value should be multiplied by 1.2 f or patients. For further information please copy and past e the following links into your internet browser. http://Anexon/DHnkdep http://Anexon/DHMCnkf Specimen Anatomical Collection Method Collection Time Receive d Time (Source) Location / / Volume Laterality Blood specimen 04/05/2015 2:07 PM 016 2:27 (specimen) EST PM EST Resulting Agency Comment Spec In Lab Nona Sams DO CHEMISTRY ORDERABLES Performing Organization Address City/State/[place] [address] CERNER MILLENNIUM (ABNORMAL) Urinalysis with reflex Culture (04/05/2015 2:07 PM EST) [facility] Method Time Signature Glucose UA Negative Negative CERNER mg/dL MILLENNIUM Protein UA 100 (A) Negative CERNER mg/dL MILLENNIUM Bilirubin UA Negative Negative CERNER mg/dL MILLENNIUM Comment: Clinical correlation required for positi ve Urine Bilirubin results as false positive may occur with some drugs and d rug related products. If a false positive is suspected a serum total bili girard should be considered if clinically indicated. Urobilinogen UA Normal Normal mg/dL [facility] MILL ENNIUM pH UA 6.0 5.0 - 8.0 [facility] Blood UA Negative Negative mg/dL [facility] MILLRE[facility] UM Ketones UA Negative Negative mg/dL [facility] IUM Nitrite UA Negative Negative [facility] Leukocytes UA Negative Negative mcL [facility] PEDRO LUIS NIUM Appearance UA Clear Clear CERNER MILLENNIU M Spec [place] UA 1.010 1.002 - 1.030 [facility] MIL LENNIUM Color UA Straw Yellow [facility] RBC UA <1 0 - 3 /HPF [facility] MILLENNIUM WBC UA <1 0 - 3 /HPF [facility] Squam Epith UA <1 <=4 /HPF [facility] UM Culture Reflexed No [facility] PEDRO LUIS NIUM Specimen Anatomical Collection Method Collection Time Receive d Time (Source) Location / / Volume Laterality Urine specimen 04/05/2015 2:07 PM 016 2:27 (specimen) EST PM EST Resulting Agency Comment Spec In Lab Nona Sams DO URINE ORDERABLES Performing Organization Address City/[facility]/ZIP Code Phon e Number [address] [facility] Uric acid (04/05/2015 2:07 PM EST) P athologist Signature Uric Acid 5.5 3.5 - 8.5 CERNER mg/dL [facility] Specimen Anatomical Collection Method Collection Time Receive d Time (Source) Location / / Volume Laterality Blood specimen 04/05/2015 2:07 PM 016 2:27 (specimen) EST PM EST Resulting Agency Comment Spec In Lab Nona Sams DO CHEMISTRY ORDERABLES Performing Organization Address City/[facility]/ZIP Code Phon e Number [address] [facility] documented in this encounter Visit Diagnoses Diagnosis Gout, unspecified cause, unspecified chr onicity, unspecified site CKD (chronic kidney disease), unspecifie d stage Proteinuria Gynecomastia Hypertrophy of breast Weight gain Abnormal weight gain Pain in joint, pain in unspecified joint Gout, unspecified cause, unspecified chr onicity, unspecified site CKD (chronic kidney disease), unspecifie d stage Proteinuria Gynecomastia Hypertrophy of breast documented in this encounter Care Teams Plaster Whittler Relationship Specialty Start Date End Date Anni Nicholas MD PCP - General General Internal Medicine 04/05/15 documented as of this encounter
--- OUTSIDE RECORDS SUMMARY | 2021-08-29 11:45 | XMS_ITS | Encounter Summary ---
:1960 Author Organization [facility] [place] [address] Care Team Providers Name Role Phone Nicolás Nicholas MD Primary Care Provider Encounter Details Date Type Department Care Team Description 01/31/2016 Office Visit Rheumatology at [facility] Nona Sams Primary osteoarthritis of mary th knees; [facility] D, DO CKD (chronic kidney disease), unspecifie d stage; Drive [facility] Gout, unspecified cause, uns pecified chronicity, [place] [address] RHEUMATOLOGY DEPT [phone] [place], [place] [address] Social History Tobacco Use Types [...] Sign Reading Time Taken Comments Blood Pressure 140/88 01/31/2016 12:34 PM EST Pulse 58 01/31/2016 12:34 PM EST Temperature 36.8 ??C (98.2 ??F) 01/31/2016 12:34 PM EST Respiratory Rate 18 01/31/2016 12:34 PM EST Oxygen Saturation 98% 01/31/2016 12:34 PM EST Inhaled Oxygen Concentration - - Weight 96.2 kg (212 lb) 01/31/2016 12:34 PM EST Height 177.8 cm (5' 10) 01/31/2016 12:34 PM EST Body Mass Index 30.42 01/31/2016 12:34 PM EST documented in this encounter Patient Instructions Patient InstructionsMaNona henning DO - 01/31/2016 1:00 PM EST Prednisone 40 mg daily x 5 days 30 mg x 3 days 20 mg x 3 days 10 mg x 3 days 5 mg x 3 days Colchicine with first twinge twice daily x 5-7 days If no improvement after a day or two then start the prednisone documented in this encounter Progress Notes Nona Sams DO - 01/31/2016 1:00 PM EST HPI Pt notes 7 days ago he started having left great toe pain and swelling, the right has a little pain. He notes he still having stabbing pain in his ankle daily, and his low back. He gets bl knee pain. Notes it is when he wakes up. Notes overnight he has it. Notes worse standing on it. Notes low back pain all day, thinks it is worse c/w year ago, the back is worse with activity. He can't climb a ladder or chacon. The pain will stay all day long, when it flares but may be a few hours at time. Pain is worse with using it. He has not started PT as recommended or trialed anti-inflamatoreis Did wear a brace did not work. He saw podiatry, they did xrays, everything looked okay. Last visit Pt brings in his paperwork for joint [...] dosing. Background hx: Mohit Dotson is a 56 y.o. male who presents today for evaluation [...] negative. He was sent to podiatry in [place] and [facility] as his xrays of his feet [...] He has had crystal proven gout at [facility] He also has pain in his knees (feels his knees will give out), feels ankles with give out The joint pain started 2 years ago when he tried to go snowshoeing, it started in his ankles swelling, and the shoudlers, wrists, eblows, low back. He notes he has some aching in the am feels like he ran a marathon at [facility] the day he is in pain. He [...] SLE STD Raynaud???s Psoriasis Seizures Anemia Leucopenia Thrombocytopenia Psychosis from a medical condition Health [...] hpl Gout, erosive, tophaceous ckd arthralgias Osteoarthritis hands/feet/low back Recent CVA? Vs TIA Left sided n/t Mri wnl Physical Examination: BP 140/88 Pulse 58 Temp 36.8 ??C (98.2 ??F) Resp 18 Ht 177.8 cm (5' 10) Wt 96.2 kg (212 lb) SpO2 98% BMI 30.42 kg/m2 General: Alert and oriented. Well developed and nourished. The patient did not appear distressed or uncomfortable. The patient ambulated without difficulty or assistance. Head: Scalp: Appeared normal. Eyes: PERRL. Extraocular muscles were intact. External Eye: No hyperemia of the conjunctiva noted Sclera: Not red. Lungs: Work of breathing was not increased. Cardiovascular system: Lower Extremity Edema: Not present. Musculoskeletal system: (???NML?? means normal; No swelling, warmth, tenderness, loss of range of motion, or deformity as applicable) Ankles: no swelling or warmth Feet: Left great toe with erythema, swelling and ttp, right w oa changes Nails: No nail pitting, onycholysis or periungual erythema noted but he does have some dystrophic chnages on bl thumbs Neurologic: gait nl from all ext Skin: No rash seen Laboratory Data: rf neg [place] neg ua 300 +protein-repeat 100 protein Esr/crp nl Creatinine 1.5 Uric acid 5.1, most recent 4.0 PROCEDURE NOTE: After explaining the potential risks (bleeding, infection, pain), verbal consent was obtained, and atime out was performed confirming the correct site. The left great toe was cleansed using povidone-iodine swabs x3. Using a 25-gauge 1.5 inch needle the left first mtp was entered and 10mg of depomedrol and 0.25 ml of 1% lidocaine was injected without complication. Pt had immediate improvement of her pain and tolerated the procedure well. Post injection instructions were discussed. Aspiration of a drop of fluid was obtained and looked at under the microscope which showed negatively birefringent crystals. Impression/Recommendations : Mohit Dotson is a 56 y.o. male w a hx of tophaceous erosive gout and osteoarthritis. Gout: P tlast uric acid in August was at goal on 400 mg of allopurinol daily, this is his first flare since Mar 2015. Aspiration today confirmed uric acid crystals and steroid injection provided. Repeat uric acid testing in 2-3 weeks (once attack resolves). If uric acid not at goal <5 will incr allopurinol. Dicussed that cahgnes in renal function, mild trauma, infection can cause repeated gout flares even in the setting of a normal uric acid. Reviewed with him how to manage flares: start colchicine at the first hint of a flare and cont x 1-2weks, if no improvement after a day or two to astart the prednisone burst taper as dicussed. Reviewed with patient his radiographs showing ostearthritis. He does not wish for regular oral therapy with something like tylenol, could trial topical therapy-voltaren gel. He is currently on fish oil, and will consider PT as we had dicussed. Lumbago: likely facet arthropathy, radiographically confirmed, reviewed stretches, rec PT CC: Nicolás Nicholas MD documented in this encounter Plan of Treatment Not on filedocumented as of this encounter Visit Diagnoses Diagnosis Primary osteoarthritis of both knees Primary localized osteoarthrosis, lower leg CKD (chronic kidney disease), unspecifie d stage Gout, unspecified cause, unspecified chr onicity, unspecified site documented in this encounter Care Teams Assembly Manager Relationship Specialty Start Date End Date Nicolás Nicholas MD PCP - General General Internal Medicine 04/05/15 documented as of this encounter
--- OUTSIDE RECORDS SUMMARY | 2021-08-29 11:45 | XMS_ITS | Encounter Summary ---
:1960 Author Organization [facility] [place] [address] Care Team Providers Name Role Phone Parker Dang MD Primary Care Provider Reason for Referral Consultation (Routine) - Closed Specialty Diagnoses / Procedures Referred By Contact Refer red To Contact Diagnoses Concern about skin disease without diagnosis Nail dystrophy Gina Gutierrez Hammer, Charles J, MD DO [address] [place] [address] D DERMATOLOGY [place] [address] [place] [address] Referral ID Status Reason Start Date Expiration Date Visits V isits Requested Authorized [id number] Closed Consult, 03/25/2017 09/21/2017 1 1 Test & Treat Encounter Details Date Type Department Care Team Description 03/25/2017 Orders Only Rheumatology at [facility] Brenda Concern about skin disease w [facility] diagnosis; [facility] Gina Garcia [place] [phone] [address] [place], [place] [address] Social History Tobacco Use Types [...] as of this encounter Plan of Treatment Scheduled Referrals Name Type Priority Associated Order Schedule Diagnoses Referral to Outpatient Referral Routine Concern about skin Or dered: Dermatology disease without 03/25/2017 diagnosis Nail dystrophy documented as of this encounter Visit Diagnoses Diagnosis Concern about skin disease without diagn osis Person with feared complaint in whom no diagnosis was made Nail dystrophy Other specified disease of nail documented in this encounter Care Teams Customer Facilities Supervisor Relationship Specialty Start Date End Date Parker Dang MD PCP - General General Internal Medicine 10/01/16 [facility] [place] [address] documented as of this encounter
--- OUTSIDE RECORDS SUMMARY | 2021-08-29 11:45 | XMS_ITS | Encounter Summary ---
:1960 Author Organization [facility] [place] [address] Care Team Providers Name Role Phone Nicolás Nicholas MD Primary Care Provider Encounter Details Date Type Department Care Team Description 04/05/2015 Hospital Encounter XRay at [facility] Nona Sams Gout, unspecified cause, uns pecified chronicity, unspecified site; [address] [facility] [address], CKD (chronic kidney disease), unspecifie d stage; [facility] Proteinuria; [id number] [facility] Gynecomastia [phone] RHEUMATOLOGY DEP [place], [place] [address] Social History Tobacco Use Types [...] Priority Date/Time Associated Diagnosis Comme nts XR KNEE AP AND LAT Routine 04/05/2015 2:33 PM Gout, unspecifie d Results for this BILAT EST cause, unspecified procedure are in chronicity, the results unspecified site section. CKD (chronic kidney disease), unspecified stag e Proteinuria Gynecomastia documented in this encounter Results XR Knees 1 Or 2 Views - Bilateral (04/05/2015 2:33 PM EST) Anatomical Region Laterality Modality Knee Bilateral Digital Radiography Specimen (Source) Anatomical Location Collection Method / Collectio n Time Received Time / Laterality Volume Impressions 04/05/2015 3:08 PM EST IMPRESSION: 1. Right knee: There is no evidence of a cute fracture or dislocation of the knee. No joint effusion is identified. N o significant arthritic changes are identified. There are no bony erosions. 2. Left knee: There is no evidence of ac [place] fracture or dislocation of the knee. No joint effusion is identified. No sign ificant arthritic changes are identified. There are no bony erosions. Narrative 04/05/2015 3:08 PM EST EXAMINATION: XR KNEES 1 OR 2 VIEWS BILATERAL CLINICAL HISTORY: pt with bl knee pain a nd stiffness, pls assess for oa vs changes c.w psoriatic arthritis TECHNIQUE: AP standing and lateral radio graphs of the knees COMPARISON: None FINDINGS: Right knee: There is no evidence of acut e fracture or dislocation of the knee. No joint effusion is identified. No sign ificant arthritic changes are identified. There are no bony erosions. Left knee: There is no evidence of acute fracture or dislocation of the knee. No joint effusion is identified. No signifi cant arthritic changes are identified. There are no bony erosions. Procedure Note Richard Payne MD - 04/05/2015Formatti ng of this note might be different from the original. EXAMINATION: XR KNEES 1 OR 2 VIEWS BILAT ERAL CLINICAL HISTORY: pt with bl knee pain a nd stiffness, pls assess for oa vs changes c.w psoriatic arthritis TECHNIQUE: AP standing and lateral radio graphs of the knees COMPARISON: None FINDINGS: Right knee: There is no evidence of acut e fracture or dislocation of the knee. No joint effusion is identified. No sign ificant arthritic changes are identified. There are no bony erosions. Left knee: There is no evidence of acute fracture or dislocation of the knee. No joint effusion is identified. No signifi cant arthritic changes are identified. There are no bony erosions. IMPRESSION IMPRESSION: 1. Right knee: There is no evidence of a cute fracture or dislocation of the knee. No joint effusion is identified. N o significant arthritic changes are identified. There are no bony erosions. 2. Left knee: There is no evidence of ac [place] fracture or dislocation of the knee. No joint effusion is identified. No sign ificant arthritic changes are identified. There are no bony erosions. Nona Sams DO IMG DX ORDERABLES documented in this encounter Visit Diagnoses Diagnosis Gout, unspecified cause, unspecified chr onicity, unspecified site CKD (chronic kidney disease), unspecifie d stage Proteinuria Gynecomastia Hypertrophy of breast documented in this encounter Care Teams Reeling And Tubing Machine Operator Relationship Specialty Start Date End Date Nicolás Nicholas MD PCP - General General Internal Medicine 04/05/15 documented as of this encounter
--- OUTSIDE RECORDS SUMMARY | 2021-08-29 11:45 | XMS_ITS | Encounter Summary ---
:1960 Author Organization [facility] [place] [address] Care Team Providers Name Role Phone Parker Dang MD Primary Care Provider Encounter Details Date Type Department Care Team Description 01/21/2017 External Results Internal Medicine at [facility] [address] [place] [address] Social History Tobacco Use Types Packs/Day Years [...] Priority Date/Time Associated Diagnosis Comme nts EXTERNAL LAB CBC Routine 07/01/2016 2:10 PM Resul ts for this CMP THYROID RESULTS EDT procedur e are in PANEL the results section. URINE EXTERNAL LAB Routine 07/01/2016 1:08 PM Res ults for this PANEL EDT procedure are i n the results section. documented in this encounter Results (ABNORMAL) CBC / CMP / Thyroid External Results (07/01/2016 2:10 PM EDT) P athologist Signature WBC 9.65 EXTERNAL LAB (External Lab) RBC 4.65 EXTERNAL LAB (External Lab) Hemoglobin 15.0 EXTERNAL LAB (External Lab) Hematocrit 42.7 EXTERNAL LAB (External Lab) MCV 91.8 EXTERNAL LAB (External Lab) Platelets 168 EXTERNAL LAB (External Lab) Sodium 137 EXTERNAL LAB (External Lab) Potassium 4.0 EXTERNAL LAB (External Lab) Chloride 103 EXTERNAL LAB (External Lab) CO2 28 EXTERNAL LAB (External Lab) Comment: Actual result 27.8 BUN 22 (ExtH) EXTERNAL LAB Creatinine 1.45 (ExtH) EXTERNAL LAB Estimated GFR 50.16 (External Lab) EXTER NAL LAB Glucose Lvl 96 (External Lab) EXTERNAL L AB Calcium 8.9 (External Lab) EXTERNAL LA B Anion Gap 6 (External Lab) EXTERNAL LAB Comment: actual result 6.2 Total Protein 7.8 (External Lab) EXTERNA L LAB Albumin 4.2 (External Lab) EXTERNAL LA B Total Bilirubin 0.79 (External Lab) EXTE RNAL LAB Alk Phos 65 (External Lab) EXTERNAL LAB AST 21 (External Lab) EXTERNAL LAB ALT 35 (External Lab) EXTERNAL LAB Specimen (Source) Anatomical Collection Method Collection Time Re ceived Time Location / / Volume Laterality 07/01/2016 2:10 PM EDT Narrative This result has an attachment that is no t available. Historical Provider MD POINT OF CARE TEST ORDERABLE S Performing Organization Address City/State/ZIP Code Phon e Number EXTERNAL LAB (ABNORMAL) Urine Lab External Results (07/01/2016 1:08 PM EDT) Patholo gist Method Time Signature Color UA yellow EXTERNAL LAB (External Lab) Appearance UA clear EXTERNAL LAB (External Lab) Spec [place] UA 1.010 EXTERNAL LAB (External Lab) pH UA 6.0 (External EXTERNAL LAB Lab) Leukocytes UA neg (External EXTERNAL LAB Lab) Nitrite UA Neg (External EXTERNAL LAB Lab) Protein UA 30 (ExtH) EXTERNAL LAB Glucose UA Neg (External EXTERNAL LAB Lab) Ketones UA Neg (External EXTERNAL LAB Lab) Urobilinogen UA 0.2 (External EXTERNAL L AB Lab) Bilirubin UA Neg (External EXTERNAL LAB Lab) Blood UA Trace (ExtH) EXTERNAL LAB WBC UA 0-2 (External 4 EXTERNAL LAB Lab) RBC UA 0-2 (External EXTERNAL LAB Lab) Bacteria UA Neg (External EXTERNAL LAB Lab) Crystals Neg (External EXTERNAL LAB Lab) Casts Neg (External EXTERNAL LAB Lab) Urine Culture Not Indicated EXTERNAL LAB (External Lab) Specimen (Source) Anatomical Collection Method Collection Time Re ceived Time Location / / Volume Laterality 07/01/2016 1:08 PM EDT Narrative This result has an attachment that is no t available. Historical Provider POINT OF CARE TEST ORDERABLE S Performing Organization Address City/State/ZIP Code Phon e Number EXTERNAL LAB documented in this encounter Visit Diagnoses Not on filedocumented in this encounter Care Teams Clothing Consultant Relationship Specialty Start Date End Date Parker Dang MD PCP - General General Internal Medicine 10/01/16 [facility] [place] [address] [place] [address] documented as of this encounter
--- OUTSIDE RECORDS SUMMARY | 2021-08-29 11:45 | XMS_ITS | Encounter Summary ---
:1960 Author Organization [facility] [place] [address] Care Team Providers Name Role Phone Nicolás Nicholas MD Primary Care Provider Encounter Details Date Type Department Care Team Description 05/25/2015 Hospital Encounter XRay at [facility] oNna Sams Arthritis of first MTP joint ; [address] [place] [address] Dr Park, DO Fatigue, unspecified type; [facility] Arthritis [phone] RHEUMATOLOGY [place], [place] [address] Social History Tobacco Use Types [...] Sig Dispensed Refills Start Date End Date aspirin 325 mg Take 325 mg by mouth 0 08/30/2015 TabletIndications: daily. Arthritis of first MTP joint, Fatigue, unspecified type, Arthritis atorvastatin (LIPITOR) 40 Take 40 mg by mouth 0 08/30/2015 mg TabletIndications: daily. Arthritis of first MTP joint, Fatigue, unspecified type, Arthritis doxazosin (CARDURA) 4 mg Take 4 mg [...] Priority Date/Time Associated Diagnosis Comme nts XR FOOT MIN 3 VIEWS Routine 05/25/2015 3:21 PM Arthritis of fi rst Results for this BILAT EDT MTP joint procedure are in Fatigue, unspecified the res ults type section. Arthritis documented in this encounter Results XR Feet Bilateral Minimum 3 Views (05/25/2015 3:21 PM EDT) Anatomical Region Laterality Modality Foot Bilateral Digital Radiography Specimen (Source) Anatomical Location Collection Method / Collectio n Time Received Time / Laterality Volume Impressions 05/25/2015 5:12 PM EDT IMPRESSION: Bilateral first metatarsal/nodule joint changes which likely represent a combination of osteoarthritis and gout. Narrative 05/25/2015 5:12 PM EDT EXAMINATION: XR FEET BILATERAL MINIMUM 3 VIEWS CLINICAL HISTORY: pt with bl foot pain a nd hx of gout, now seems more consistent w OA TECHNIQUE: 3 views each foot COMPARISON: None FINDINGS: Left foot: Joint space narrowing with pe riarticular sclerosis noted at first metatarsal-phalangeal joint. Scattered w ell-corticated created radiolucencies. Focal erosion seen in the cuneiform on t he oblique view Inferior calcaneal spurring, compatible with osteophytosis. Remaining aspects of bones of left foot are normal.. Findings likely represent a combination of osteoarthritis and gout. Right foot: Radiolucent changes noted at first metatarsal/phalangeal joint, slightly less prominent than on the left foot. Similarly as on the left, small erosion noted in the cuneiform bone on t he oblique view. Inferior calcaneal spurring, compatible with osteophytosis. Procedure Note Heri Jensen MD - 05/25/2015Form atting of this note might be different from the original. EXAMINATION: XR FEET BILATERAL MINIMUM 3 VIEWS CLINICAL HISTORY: pt with bl foot pain a nd hx of gout, now seems more consistent w OA TECHNIQUE: 3 views each foot COMPARISON: None FINDINGS: Left foot: Joint space narrowing with pe riarticular sclerosis noted at first metatarsal-phalangeal joint. Scattered w ell-corticated created radiolucencies. Focal erosion seen in the cuneiform on t he oblique view Inferior calcaneal spurring, compatible with osteophytosis. Remaining aspects of bones of left foot are normal.. Findings likely represent a combination of osteoarthritis and gout. Right foot: Radiolucent changes noted at first metatarsal/phalangeal joint, slightly less prominent than on the left foot. Similarly as on the left, small erosion noted in the cuneiform bone on t he oblique view. Inferior calcaneal spurring, compatible with osteophytosis. IMPRESSION IMPRESSION: Bilateral first metatarsal/nodule joint changes which likely represent a combination of osteoarthritis and gout. Nona Sams DO IMG DX ORDERABLES documented in this encounter Visit Diagnoses Diagnosis Arthritis of first MTP joint Osteoarthrosis, unspecified whether gene ralized or localized, ankle and foot Fatigue, unspecified type Arthritis Arthropathy, unspecified, site unspecifi ed documented in this encounter Care Teams Kick Press Operator Relationship Specialty Start Date End Date Nicolás Nicholas MD PCP - General General Internal Medicine 04/05/15 documented as of this encounter
--- OUTSIDE RECORDS SUMMARY | 2021-08-29 11:45 | XMS_ITS | Encounter Summary ---
:1960 [place] [address] Care Team Providers Name Role Phone Unavailable Primary Care Provider Unavailable Encounter Details Date Type Department Care Team Description 09/24/2014 Hospital Encounter Radiology Library at [facility], [place] [address] Social History Tobacco Use Types Packs/Day Years Used Date Never Assessed Physical Activity Answer Date Recorded On average, [...] place to sleep or slept in a long term (including now)? Sex Assigned at Date Recorded Male 05/03/2020 3:20 PM EDT documented as of this encounter Plan of Treatment Not on filedocumented as of this encounter Procedures Procedure Name Priority Date/Time Associated Diagnosis Comme nts FILM LIBRARY Routine 09/24/2014 12:00 AM Pain Results for this STORAGE ONLY DX EDT procedure ar e in ANKLE the results section. documented in this encounter Results Film Library- Storage only DX Ankle (09/24/2014 12:00 AM EDT) Specimen (Source) Anatomical Location Collection Method / Collectio n Time Received Time / Laterality Volume Narrative THOMAS GILEBRT - 04/06/2015 4:20 PM EST See PACS for result report. [facility] FILM LIBRARY ORDERABLES Performing Organization Address City/State/ZIP Code Phon e Number [facility] [place], [place] documented in this encounter Visit Diagnoses Diagnosis Pain Generalized pain documented in this encounter
--- OUTSIDE RECORDS SUMMARY | 2021-08-29 11:45 | XMS_ITS | Encounter Summary ---
:1960 Author Organization [facility] [place] [address] Care Team Providers Name Role Phone Nicolás Nicholas MD Primary Care Provider Encounter Details Date Type Department Care Team Description 02/10/2016 Telephone Rheumatology at [facility] [place] [address] Social History Tobacco Use Types Packs/Day Years [...] this encounter Miscellaneous Notes Telephone Encounter - Dian Mejia LPN - 02/10/2016 12:49 PM EST Pt phones wanting to know if the PA for the Voltaren and colchicine has been done yet. I have calledLuiza she[facility] and asked them to send me the fax so that we can do this PA. I have called Reji and let him know that we are working on the PA's for these drugs. documented in this encounter Plan of Treatment Not on filedocumented as of this encounter Visit Diagnoses Not on filedocumented in this encounter Care Teams Pump Stitcher Relationship Specialty Start Date End Date Nicolás Nicholas MD PCP - General General Internal Medicine 04/05/15 documented as of this encounter
--- OUTSIDE RECORDS SUMMARY | 2021-08-29 11:45 | XMS_ITS | Encounter Summary ---
:1960 Author Organization [facility] Address [facility] [place] [address] Care Team Providers Name Role Phone Parker Dang MD Primary Care Provider Encounter Details Date Type Department Care Team Description 04/29/2017 Orders Only Rheumatology at [facility] Brenda, Idiopathic gout of [facility] Gina Garcia DO multiple sites, Drive [facility] [place] [address] [address] [address] esteves (Primary [phone] RHEUMATOLOGY DEP T. Dx) [place] [id number] Social History Tobacco Use Types Packs/Day Years [...] Not on filedocumented as of this encounter Results Uric acid (05/09/2017 3:51 PM EDT) athologist Signature Uric Acid 5.0 3.5 - 8.5 [facility] mg/dL [facility] Specimen Anatomical Collection Method Collection Time Receive d Time (Source) Location / / Volume Laterality Blood specimen 05/09/2017 3:51 PM 018 3:54 (specimen) EDT PM EDT Resulting Agency Comment Spec In Lab Gina Gutierrez DO CHEMISTRY ORDERABLES Performing Organization Address City/State/[place] [address] documented in this encounter Visit Diagnoses Diagnosis Idiopathic gout of multiple sites, unspe cified chronicity - Primary documented in this encounter Care Teams Communications Clerk Relationship Specialty Start Date End Date Parker Dang MD PCP - General General Internal Medicine 10/01/16 [facility] GENER[place] [address] documented as of this encounter
--- OUTSIDE RECORDS SUMMARY | 2021-08-29 11:45 | XMS_ITS | Encounter Summary ---
:1960 Author Organization [place] [address] Care Team Providers Name Role Phone Parker Dang MD Primary Care Provider Reason for Visit Consultation (Routine) - Closed Specialty Diagnoses / Procedures Referred By Contact Refer red To Contact Urology Diagnoses Lower urinary tract symptoms Parker Dang MD [facility] Urology [facility] INTERNAL [place], [place] [address] [place] [address] Referral ID Status Reason Start Date Expiration Date Visits V isits Requested Authorized [id number] Closed Specialty 02/05/2017 02/05/2018 1 1 Service Requested Encounter Details Date Type Department Care Team Description 05/09/2017 Office Visit Urology at [facility] Tutu Fabian, Benign prostatic [facility] hyperplasia with Drive [address] [facility] [place] [address] UROLOGY DEPT [phone] [place] [address] Social History Tobacco Use Types Packs/Day Years [...] Sign Reading Time Taken Comments Blood Pressure 150/88 05/09/2017 2:38 PM EDT Pulse 58 05/09/2017 2:38 PM EDT Temperature - - Respiratory Rate - - Oxygen Saturation - - Inhaled Oxygen Concentration - - Weight - - Height - - Body Mass Index - - documented in this encounter Progress Notes Tutu Fabian MD - 05/09/2017 2:40 PM EDT UROLOGY CONSULTATION I have been asked to see the patient by Parker Dang for evaluation and recommendations of BPH. CC: BPH HPI: Mr. Dotson is a very pleasant 57-year-old male presenting for evaluation of BPH and lower urinary tract symptoms. He reports that his symptoms have been present but worsening since approximately 2013. He has a mixture of irritative and obstructive lower urinary tract symptoms. His IPSS score is 26/35 (4/3/5/4/4/3/3) Bother of 4. He has significant urinary frequency and urgency with nocturia ??3. Attimes his urinary stream is significantly diminished. There are times where it is stronger. He has no hematuria or dysuria. He has been on both flomax and finasteride for an extended period of time, and is still taking both. He is most bothered by his irritative symptoms. He has never had a PSA checked in the past. He has also never had to see a urologist previously. PMH: Active Ambulatory Problems Diagnosis Date Noted ??? Hypertension 11/19/2016 ??? Hyperlipidemia 11/19/2016 ??? Gout 11/19/2016 ??? BPH (benign prostatic hyperplasia) 11/19/2016 ??? Aortic ectasia 11/22/2016 ??? 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 CKD (chronic kidney disease) 01/18/2017 ??? Diverticulosis of both small and large intestine without perforation or abscess without qnhndgue95/04/2017 Resolved Ambulatory Problems Diagnosis Date Noted ??? No Resolved Ambulatory Problems No Additional Past Medical History MEDS: Current Outpatient Prescriptions on File Prior to Visit Medication Sig Dispense Refill ??? allopurinol (ZYLOPRIM) 300 mg Tablet Take 1 tablet by mouth daily. 90 tablet 3 ??? tamsulosin (FLOMAX) 0.4 mg Capsule, Sust. Release 24 hr Take 1 capsule by mouth daily. 90 tablet3 ??? ergocalciferol (ERGOCALCIFEROL) 50,000 unit Capsule Take 1 capsule by mouth once a week. 12 capsule 1 ??? allopurinol (ZYLOPRIM) 100 mg Tablet TAKE ONE TABLET BY MOUTH EVERY DAY 90 tablet 3 ??? colchicine (COLCRYS) 0.6 mg Tablet Take 1 tablet by mouth 2 times daily as needed. Reported on 01/31/2016 (Patient not taking: Reported on 01/18/2017) 60 tablet 3 ??? diclofenac (VOLTAREN) 1 % Gel Apply 2 g topically 4 times daily. (Patient not taking: Reported on 12/11/2016) 100 g 3 ??? aspirin 81 mg Tablet, Delayed Release (E.C.) Take 81 mg by mouth daily. ??? finasteride (PROSCAR) 5 mg Tablet Take 5 mg by mouth daily. ??? DOCOSAHEXANOIC ACID/EPA (FISH OIL ORAL) Take by mouth daily. ??? atorvastatin (LIPITOR) 40 mg Tablet Take 40 mg by mouth daily. ??? atenolol (TENORMIN) 50 mg Tablet Take 50 mg by mouth daily. No current facility-administered medications on file prior to visit. FAMHX: Family History Problem Relation Age of Onset ??? Esophageal Cancer Father ??? Cancer Father ??? Coronary Artery Disease Maternal Grandfather ??? Endocrine Disorder Maternal Grandfather ??? Heart Disease Maternal Grandfather ??? Hyperlipidemia Maternal Grandfather ??? Diabetes Neg Hx ??? Thyroid Disease Neg Hx SOCHX: Social History Substance Use Topics ??? Smoking status: Never Smoker ??? Smokeless tobacco: Never Used ??? Alcohol use 8.4 oz/week 14 Glasses of wine per week ROS: GENERAL: Denies fevers, sweats, chills, anorexia, denies weight changes. BONDERIZER: Denies loss of consciousness, denies balance difficulty, denies pins/needle sensations. HEENT: Denies headaches and vision changes. RESP: Denies cough or breathing difficulties. CVS: Denies chest pain and MULLEN. No claudication. GI: Denies nausea/vomiting/diarrhea/constipation. Normal appetite and bowels. : see HPI MUSCULOSKELETAL: Denies joint or muscle aches. Denies back pain. SKIN: Denies rashes. HEME: Denies bleeding tendencies, bruisability. EXAMINATION: Most Recent Vitals: 05/09/17 1438 BP: 150/88 Pulse: 58 GENERAL: Well appearing male in NAD. Healthy appearance. Normal color. HEENT: Atraumatic, normocephalic. Anicteric sclera. MMM. RESPIRATORY: Unlabored respirations with no audible wheezing. CARDIAC: Regular rhythm with no audible MGR. ABDOMEN: Benign without masses. No rebound or guarding. GENITALIA: Scrotum - Color and texture normal; no masses. Testicles and epididymides - No tenderness or masses. Penis - Normal phallus with orthotopic meatus; no masses or surface lesions. RECTAL: The anus and perineum are normal. Rectal sphincter tone is normal. Prostate is smooth, no nodules, 2+. NEUROLOGIC: Alert and oriented x 3. EXTREMITIES: Warm and well perfused with no pitting edema. LABS: Lab Results Component Value Date PSA 0.24 05/09/2017 PVR today 168 cc measured in supine position immediately after voiding. UA is neg. ASSESSMENT: BPH Mix of obstructive and irritative LUTS RECOMMENDATIONS: I discussed with Vladimir these findings. He is on maximal medical therapy and has suboptimal managementof his LUTS. We discussed surgical options, which might be the next consideration. I recommended first proceeding with UDS to ensure good detrusor function and prove bladder outlet obstruction. I will arrange this in coming weeks with Dr. Dawn to be done here in clinic and I will see him back afterthat to discuss surgical options in more detail and make a final plan. He is also dealing with nasalpassage issues and has a procedure upcoming for that. I assured him that this is non urgent. Thank you so much for this consultation, please do not hesitate to call with any additional questions. Tutu Fabian MD documented in this encounter Plan of Treatment Not on filedocumented as of this encounter Results PSA (05/09/2017 3:51 PM EDT) athologist Signature PSA Total 0.24 0.00 [facility] (Ultrasensitiv 4.00 ng/mL [facility] Specimen Anatomical Collection Method Collection Time Receive d Time (Source) Location / / Volume Laterality Blood specimen 05/09/2017 3:51 PM 018 3:54 (specimen) EDT PM EDT Resulting Agency Comment Spec In Lab Tutu Fabian MD CHEMISTRY ORDERABLES Performing Organization Address City/State/[place] [address] documented in this encounter Visit Diagnoses Diagnosis Benign prostatic hyperplasia with urinar y obstruction documented in this encounter Care Teams Hose Builder Relationship Specialty Start Date End Date Parker Dang MD PCP - General General Internal Medicine 10/01/16 [facility] [place] [address] documented as of this encounter
--- OUTSIDE RECORDS SUMMARY | 2021-08-29 11:45 | XMS_ITS | Encounter Summary ---
:1960 Author Organization [facility] [place] [address] Care Team Providers Name Role Phone Nicolás Nicholas MD Primary Care Provider Reason for Visit Reason Comments Medication Refill Encounter Details Date Type Department Care Team Description 08/01/2016 Refill Rheumatology at [facility] Nona Sams, Idiopathic chronic [facility] Xavier ortega DO [place] [address] [place] [address] DR colón [phone] RHEUMATOLOGY DEP [place], [place] [address] (Wo rk) Social History Tobacco [...] this encounter Visit Diagnoses Diagnosis 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
--- OUTSIDE RECORDS SUMMARY | 2021-08-29 11:45 | XMS_ITS | Encounter Summary ---
:1960 Author Organization [facility] [place] [address] Care Team Providers Name Role Phone Parker Dang MD Primary Care Provider Encounter Details Date Type Department Care Team Description 05/21/2017 Procedure visit Urology at [facility] Lower urinary tract [facility] D rive symptoms (LUTS) [place] [address] Social History Tobacco Use Types Packs/Day [...] Sign Reading Time Taken Comments Blood Pressure 134/84 05/21/2017 1:07 PM EDT Pulse 59 05/21/2017 1:07 PM EDT Temperature - - Respiratory Rate - - Oxygen Saturation 100% 05/21/2017 1:07 PM EDT Inhaled Oxygen Concentration - - Weight 90.7 kg (200 lb) 05/21/2017 1:07 PM EDT Height - - Body Mass Index 29.45 01/18/2017 2:17 PM EST documented in this encounter Progress Notes Ana Dawn MD - 05/21/2017 1:00 PM EDT Mohit Dotson IS A male 57 y.o. who is here for Urodynamics. HPI Mr. Dotson has a history of LUTS with irritative and obstructive symptoms. He has been on both flomax and finasteride and is still bothered especially by his irritative symptoms. This is his first study. Objective: Well looking male in no acute distress. PVR:Nil Dipstick Urinalysis: neg. Urodynamics/Injection of Contrast The patient was filled at a rate of 50 mL/min via a 10 Fr urodynamic catheter with an abdominal catheter in place and EMG patches. Contrast was used 250 ml of iohexol (omnipaque) 350mg/ml in 750 of sterile water. In this patient we used: Solution Ml of contrast 1000 250 500 125 - bill for 130 ml 400 100 300 75 - bill for 65 ml 250 62.5 -bill for 60 ml 200 50 100 25 50 12.5 Cystogram: MGy:15.9; mGym 0.285; fluoro time 0.6 minutes. Indications: LUT, rule out obstruction Findings: Adequate views of the bladder at rest, during filing, at capacity and after emptying were obtained with floroscopy. Imaging revealed a smooth bladder with the bladder neck closed at rest. There was not reflux. Interpretation: normal cystogram I supervised the above listed procedure and interpreted the findings. Web Site Developer imaging was saved. Complex Cystometrogram: The detrusor (bladder minus abdominal) pressure was stable to 500 ml. The DLPP was measured at 500. Compliance was normal.. Filling sensation was normal Bladder capacity: 500 ml. VLPP:not done Pressure -Flow: The patient was asked to relax and void at 500 mL. The pdet was not measured as there was no detrusor contraction. There was no flow. EMG: The pelvic floor was appropriately relaxed during filling but increased with attempted voiding. Uroflow The catheters were then removed and the patient was asked to void into a uroflow. He voided with a flow of 33 mls per second. Of note his EMG did relax at that time. He voided a total of 600 mL's I was present for the pertinent portions of the urodynamics. I reviewed the results with the patientfollowing the procedure. I reviewed and edited the final report which is in the chart. Impression: Pt with LUTS with initial poor relaxation of his pelvic floor with attempted voiding. He later did void with appropriate relaxation. We were unable to do a pressure flow study and therefore cannot prove or disprove obstruction. He does however have a very good uroflow,unintubated. Of note he emptied his bladder very well both prior to and following the procedure. There is no detrusor overactivity. Plan: The patient may benefit from PT to ensure that he is relaxing his pelvic floor appropriately with voiding. Given his low PVRs he could also benefit from a trial of an anticholinergic or a beta 3. He was asked to fill out a voiding diary and he is to bring it to his next appointment. A longer diary may be necessary but I asked him to do this as he was not able to easily tell me what he was taking in and it course of a day.. documented in this encounter Plan of Treatment Not on filedocumented as of this encounter Visit Diagnoses Diagnosis Lower urinary tract symptoms (LUTS) Other symptoms involving urinary system documented in this encounter Administered Medications Inactive Administered Medications - up to 3 most recent administrations Medication Order MAR Action Action Date Dose Rate Site iohexol (OMNIPAQUE) 350 mg/mL Given 05/21/2017 2:35 PM EDT 100 m Ls solution 100 mL 100 mL, Other, ONCE PRN, 1 dose, Starting on Sat05/21/17 at 1434, Until Sat05/21/17 at 1435, Per Protocol, Routine documented in this encounter Care Teams Back Hanger Relationship Specialty Start Date End Date Parker Dang MD PCP - General General Internal Medicine 10/01/16 [facility] GENER[place] [place] [address] documented as of this encounter
--- OUTSIDE RECORDS SUMMARY | 2021-08-29 11:45 | XMS_ITS | Encounter Summary ---
:1960 Author Organization [facility] [place] [address] Care Team Providers Name Role Phone Parker Dang MD Primary Care Provider Reason for Visit Reason Onset Date Comments Medication Refill 11/28/2016 Encounter Details Date Type Department Care Team Description 11/29/2016 Refill Rheumatology at [facility] Ashtyn García, [place] [address] Social History Tobacco Use Types Packs/Day [...] encounter Miscellaneous Notes Telephone Encounter - Ashtyn García RN - 11/29/2016 4:14 PM EDT From: Mohit Dotson To: Jasbir Gutierrez DO Sent: 11/28/2016 6:34 PM EDT Subject: Medication Renewal Request Original authorizing provider: JASBIR GUTIERREZ DO Mohit Dotson would like a refill of the following medications: ergocalciferol (ERGOCALCIFEROL) 50,000 unit Capsule [JASBIR GUTIERREZ DO] Preferred pharmacy: [facility] [address] Comment: Hi, I put in for a new prescription last week that you did, Thank You. I just picked it up at [facility] today. Question, the first prescription was filled vit. D2 50,000 unit (oil) - todays in vitamin D3 50,000 caps (power) Any reason for concern? Thank you, Vladimir documented in this encounter Plan of Treatment Not on filedocumented as of this encounter Visit Diagnoses Not on filedocumented in this encounter Care Teams Steam Tunnel Feeder Relationship Specialty Start Date End Date Parker Dang MD PCP - General General Internal Medicine 10/01/16 [facility] [place] [address] documented as of this encounter
--- OUTSIDE RECORDS SUMMARY | 2021-08-29 11:45 | XMS_ITS | Encounter Summary ---
:1960 Author Organization [facility] [place] [address] Care Team Providers Name Role Phone Parker Dang MD Primary Care Provider Encounter Details Date Type Department Care Team Description 11/19/2016 Abstract Internal Medicine at [facility] Mayra [facility], [facility] [address] [place] [address] Social History Tobacco Use Types Packs/Day [...] on filedocumented in this encounter Care Teams Ball Points Inspector Relationship Specialty Start Date End Date Parker Dang MD PCP - General General Internal Medicine 10/01/16 [facility] GENER[place] [address] documented as of this encounter
--- OUTSIDE RECORDS SUMMARY | 2021-08-29 11:45 | XMS_ITS | Encounter Summary ---
:1960 Author Organization [facility] [place] [address] Care Team Providers Name Role Phone Nicolás Nicholas MD Primary Care Provider Reason for Referral Physical Therapy (Routine) - Specialty Diagnoses / Procedures Referred By Contact Refer red To Contact Physical Therapy Diagnoses Idiopathic gout, unspecified chronicity, unspecified site Gina Gutierrez DO [facility] [place] [address] Referral ID Status Reason Start Date Expiration Date Visits V isits Requested Authorized [id number] Evaluate and 02/23/2016 08/21/2016 12 12 Treat Encounter Details Date Type Department Care Team Description 02/23/2016 Office Visit Rheumatology at [facility] Brenda, Idiopathic gout, [facility] Gina Garcia DO unspecified Drive [facility] [place] [address] CENTER unspecified site [phone] RHE[address] DEPT. [place], [place] [address] Social History Tobacco Use Types [...] Sign Reading Time Taken Comments Blood Pressure 138/72 02/23/2016 12:34 PM EST Pulse 62 02/23/2016 12:34 PM EST Temperature 36.4 ??C (97.5 ??F) 02/23/2016 12:34 PM EST Respiratory Rate - - Oxygen Saturation 98% 02/23/2016 12:34 PM EST Inhaled Oxygen Concentration - - Weight 96.4 kg (212 lb 9.6 oz) 02/23/2016 12:34 PM EST Height 177.8 cm (5' 10) 02/23/2016 12:34 PM EST Body Mass Index 30.5 02/23/2016 12:34 PM EST documented in this encounter Progress Notes Gina Gutierrez, - 02/23/2016 1:00 PM EST Outpatient Rheumatology Consult CC: Asked by Nicolás Nicholas to evaluate this patient with joint pains HPI: Previously seen by Dr. Sams. Has gout and OA. He states that he has always had joint pains that he thinks were normal and tolerable. Recently had another gout attack in his left 1st MTP joint despite being on allopurinol and his uric acid being 5. Was off allopurinol for 10 years and is back onit for 1.5 years now. Does not understand how this can happen. Has other chronic joint pains that feel different than his gout. He has not tried the topical diclofenac yet and has also not started PT. He states he is having trouble processing all of these changes in his health. He has always eaten well. Read the insert for diclofenac and was nervous about it. Has had one TIA after a gout flare. Is concerned about the potential about having another. Today he also complains of an itchy rash across his upper chest. Trial of prednisone for his joint pain did nothing. PMH: CVA, HTN, hyperlipidemia, CKD Social Hx: never smoker Family Hx: father had gout Ros: Gen: no night sweats, fatigue or fevers Skin: rash on chest Mouth: denies dry mouth, no oral ulcers Eyes: no erythema or pain Lymph: no adenopathy Vascular: no Raynaud's, no digital ischemia Heart: no chest pain, palpitations Lungs: no dyspnea, cough, wheezing Abd: no pain, GERD, diarrhea, constipation : no dysuria, no flank pain Musculoskeletal: per HPI Physical Exam: Gen: Patient is awake, alert and oriented x 3, in no distress Skin: warm and dry, no rheumatologic rashes, there is a red, raised bumpy rash across his upper chest which looks like folliculitis Joints: Hands: no synovitis, full fist and claw Wrists: no synovitis Assessment and Plan: 56 yo male with gout and osteoarthritis. This was a counseling dominated visit. I spent 60 minutes with the patient and 45 minutes was spent in discussion of the following: - I explained that it will take some time for his body to mobilize the uric acid crystals into the blood in order to be eliminated from the kidney. He was 10 years without allopurinol which lead to a large burden of uric acid. We can use colchicine for prophylaxis but he does not tolerate even 1 pill per day without having diarrhea. I encouraged him to continue with the current course and the incidence of flares will continue to decrease over time. - I agree that his other joint pains are OA. I agree with topical diclofenac. - I agree with PT but I switched the order to include a graded exercise program to address his deconditioning - for his rash I asked him to try OTC cortisone cream RTC in 4 months documented in this encounter Plan of Treatment Scheduled Referrals Name Type Priority Associated Diagnoses Order S chedule Referral to Outpatient Referral Routine Idiopathic gout, Orde red: Physical Therapy unspecified 02/23/2016 chronicity, unspecified site documented as of this encounter Procedures Procedure Name Priority Date/Time Associated Comments Diagnosis URIC ACID Routine 02/23/2016 2:14 PM Idiopathic gout, Resul ts for this EST unspecified procedure are i n chronicity, the results unspecified site section. LIPID PANEL (REFLEX Routine 02/23/2016 2:14 PM Idiopathic gout , Results for this DIRECT LDL) EST unspecified procedure are i n chronicity, the results unspecified site section. COMPREHENSIVE Routine 02/23/2016 2:14 PM Idiopathic gout, Resu lts for this METABOLIC PANEL EST unspecified procedure ar e in (NON-FASTING) chronicity, the results unspecified site section. documented in this encounter Results Lipid Panel (02/23/2016 2:14 PM EST) [facility] Method Time Signature Chol, Total 168 <=239 [place] mg/dL [facility] Triglycerides 116 <=199 [place] mg/dL [facility] HDL 49 >=40 [place] mg/dL [facility] LDL Cholesterol 96 <=190 [place] mg/dL [facility] Chol/HDL Ratio 3.4 ratio [facility] Lipid See Note [place] Interpretation [facility] Comment: Lipid management should be guided by a p atient? s ASCVD risk, goals and preferences. ACC/AHA Guidelines recommend high intens ity statin if clinical ASCVD or LDL greater than or equal to 190 mg/dL. http://circ.ahajournals.org/content/mar y/.cir.5598507372.11552.7a Adults aged 40-75 with LDL 70-189 mg/dL should have their 10 year ASCVD risk estimated with the ACC/AHA ASCVD risk es timator http://tools.acc.org/QXVGQ-Qkry-Fmvhpyns r/ Statin should be discussed if risk great er than or equal to 7.5% in non-diabetics. With diabetes, moderate i ntensity statin is recommended if risk less than 7.5%, high intensity if risk g reater than or equal to 7.5%. Annual lipid monitoring on statins is no t necessary. Evaluate secondary causes of Triglycerid es greater than 500 mg/dL or LDL greater than 190 mg/dL: See table 6 of A CC/AHA Guideline. Lifestyle modification is a critical com ponent of ASCVD risk reduction. Specimen Anatomical Collection Method Collection Time Receive d Time (Source) Location / / Volume Laterality Blood specimen 02/23/2016 2:14 PM 017 2:27 (specimen) EST PM EST Resulting Agency Comment Spec In Lab Gina Gutierrez DO CHEMISTRY ORDERABLES Performing Organization Address City/[facility]/ZIP Code Phon e Number [address] Uric acid (02/23/2016 2:14 PM EST) athologist Signature Uric Acid 4.1 3.5 - 8.5 [facility] mg/dL [facility] Specimen Anatomical Collection Method Collection Time Receive d Time (Source) Location / / Volume Laterality Blood specimen 02/23/2016 2:14 PM 017 2:27 (specimen) EST PM EST Resulting Agency Comment Spec In Lab Gina Gutierrez DO CHEMISTRY ORDERABLES Performing Organization Address City/[facility] [place] [address] (ABNORMAL) Comprehensive metabolic panel (non-fasting) (02/23/2016 2:14 PM EST) athologist Signature Glucose Lvl 96 65 - 199 [facility] mg/dL [facility] Comment: Diabetes: >=200 mg/dL plus symp toms BUN 22 (H) 10 - 20 mg/dL [facility] Creatinine 1.56 (H) 0.80 - 1.50 mg/dL [facility] Comment: Please note that the pediatric reference intervals supplied above were not validated at [facility]. Results from pediatri c patients should be interpreted in conjunction to the patient's age, height and muscle mass. Sodium 141 135 - 145 mmol/L [facility] Potassium 4.7 3.5 - 5.0 mmol/L [facility] Comment: Please note: ??Patients with WBC >100,00 0 may have falsely elevated Potassium levels. ??For accurate Potassium quantif ication in these patients send serum separator tube (gold top) for subsequent determinations. ??Contact the Clinical Chemistry Laboratory if there are any qu estions. Chloride 101 98 - 107 mmol/L [facility] CO2 23 22 - 31 mmol/L [facility] Anion Gap 17 (H) 5 - 15 mmol/L [facility] Calcium 9.9 8.5 - 10.5 mg/dL [facility] Total Protein 7.7 6.1 - 8.0 gm/dL [facility] Albumin 4.6 3.2 - 5.2 gm/dL [facility] AST 14 0 - 39 unit/L [facility] ALT 32 0 - 55 unit/L [facility] Alk Phos 54 40 - 120 unit/L [facility] Total Bilirubin 0.5 0.2 - 1.3 mg/dL [facility] Bili, Direct 0.1 0.0 - 0.3 mg/dL [facility] Estimated GFR 46 (L) >=60 [facility] Comment: This estimated GFR (eGFR) value was [...] the following links into your internet browser. [email or web address] [email or web address]/DHMCnkf Specimen Anatomical Collection Method Collection Time Receive d Time (Source) Location / / Volume Laterality Blood specimen 02/23/2016 2:14 PM 017 2:27 (specimen) EST PM EST Resulting Agency Comment Spec In Lab Gina Gutierrez DO CHEMISTRY ORDERABLES Performing Organization Address City/State/[place] [address] documented in this encounter Visit Diagnoses Diagnosis Idiopathic gout, unspecified chronicity, unspecified site documented in this encounter Care Teams Constitutional Law Professor Relationship Specialty Start Date End Date Nicolás Nicholas MD PCP - General General Internal Medicine 04/05/15 documented as of this encounter
--- OUTSIDE RECORDS SUMMARY | 2021-08-29 11:45 | XMS_ITS | Encounter Summary ---
:1960 Author Organization [facility] [place] [address] Care Team Providers Name Role Phone Parker Dang MD Primary Care Provider Encounter Details Date Type Department Care Team Description 05/09/2017 Laboratory Appointment Lab 3L [facility] Joe Idiopathic gout of multiple sites, unspecified chronicity; [facility] Benign prostatic hyperplasia [place] [id number] Social History Tobacco Use Types Packs/Day Years [...] Name Priority Date/Time Associated Diagnosis Comme nts URIC ACID Routine 05/09/2017 3:51 PM Idiopathic gout of Res ults for this EDT multiple sites, procedure ar e in unspecified the results chronicity section. PSA STAT 05/09/2017 3:51 PM Benign prostatic Resul ts for this (ULTRASENSITIVE) EDT hyperplasia with procedu re are in urinary obstruction the resu lts section. documented in this encounter Results PSA (05/09/2017 3:51 PM EDT) athologist Signature PSA Total 0.24 0.00 - [place] TOV[place]OCK (Ultrasensitiv 4.00 ng/mL [facility] Specimen Anatomical Collection Method Collection Time Receive d Time (Source) Location / / Volume Laterality Blood specimen 05/09/2017 3:51 PM 018 3:54 (specimen) EDT PM EDT Resulting Agency Comment Spec In Lab Tutu Fabian MD CHEMISTRY ORDERABLES Performing Organization Address City/[facility]/[place] [address] Uric acid (05/09/2017 3:51 PM EDT) athologist Signature [facility]ric [facility] 5.0 3.5 - 8.5 [facility] Specimen Anatomical Collection Method Collection Time Receive d Time (Source) Location / / Volume Laterality Blood specimen 05/09/2017 3:51 PM 018 3:54 (specimen) EDT PM EDT Resulting Agency Comment Spec In Lab Gina Gutierrez DO CHEMISTRY ORDERABLES Performing Organization Address City/[facility]/[place] [address] documented in this encounter Visit Diagnoses Diagnosis Idiopathic gout of multiple sites, unspe cified chronicity Benign prostatic hyperplasia with urinar y obstruction documented in this encounter Care Teams Multiple Spindle Router Operator Relationship Specialty Start Date End Date Parker Dang MD PCP - General General Internal Medicine 10/01/16 [facility] [place] [address] documented as of this encounter
--- OUTSIDE RECORDS SUMMARY | 2021-08-29 11:45 | XMS_ITS | Encounter Summary ---
:1960 Author Organization [facility] [place] [address] Care Team Providers Name Role Phone Parker Dang MD Primary Care Provider Reason for Referral Consultation (Routine) - Closed Specialty Diagnoses / Procedures Referred By Contact Refer red To Contact Dermatology Diagnoses Gout of multiple sites due to renal impairment, unspecified chronicity Primary osteoarthritis involving multiple joints Hypovitaminosis D Gina Gutierrez [facility] D[facility] DO [address] [place] [address] [place] [address] Referral ID Status Reason Start Date Expiration Date Visits V isits Requested Authorized [id number] Closed Consult, 12/11/2016 12/11/2017 1 1 Test & Treat Encounter Details Date Type Department Care Team Description 12/11/2016 Office Visit Rheumatology at [facility] [place]da, Gout of multiple sites due t o renal impairment, unspecified chronicity; [facility] Gina Garcia DO Primary osteoarthritis involving multipl e joints; [facility] Hypovitaminosis [place], [place] C[place] [address] RHEUMATOLOGY [phone] [place] [address] Social History Tobacco Use Types Packs/Day Years [...] Sign Reading Time Taken Comments Blood Pressure 149/93 12/11/2016 1:18 PM had large cup of ice EDT coffee Pulse 61 12/11/2016 1:18 PM EDT Temperature - - Respiratory Rate 18 12/11/2016 1:18 PM EDT Oxygen Saturation 96% 12/11/2016 1:18 PM EDT Inhaled Oxygen - - Concentration Weight 94.8 kg (209 lb) 12/11/2016 1:18 PM EDT Height 177.8 cm (5' 10) 12/11/2016 1:18 PM EDT Body Mass Index 29.99 12/11/2016 1:18 PM EDT documented in this encounter Progress Notes Gina Gutierrez DO - 12/11/2016 1:30 PM EDT Outpatient Rheumatology Followup Problem [...] May 2016) Interim History: Last seen in May. Some days he feels great - no aches and no pains. He has recovered from this fully. Weight loss efforts:lowest weight was 198.he went up about 10 pounds He was going to the gym for quite awhile. He has a treadmill and a bike at his house. Gout:continues on allopurinol with no gout flares. Low vitamin D: has been taking weekly vitamin D. His left shoulder hurts especially when he lies on it. Changes in the right thumb nail and a lesion on his right forearm. He scratched the lesion but it looked rough like a wart. PMH: CVA, HTN, hyperlipidemia, CKD Social Hx: never smoker Family Hx: father had gout Physical Exam: Gen: AAO x 3, in NAD Skin: there is an excoriated lesion on the right forearm and the right thumb has changes that may befungal Joints: left shoulder TTP over the biceps tendon insertion Eyes: normal sclera Neuro: normal gait, no focal deficits Assessment and Plan: This was a counseling dominated visit. I spent 30 minutes with the patient and 25 minutes was spent in discussion of the followin yo male with gout and osteoarthritis. Will check uric acid. If still low around 4 we can decrease allopurinol to 300 mg daily Check vitamin D. If the level is up he can start taking daily vitamin D 1000 units daily. Check cbc, cmp Rest, ice for the left shoulder tendonitis. To derm for full skin check and check of his right thumbnail. RTC in 6 months documented in this encounter Plan of Treatment Scheduled Referrals Name Type Priority Associated Diagnoses Order S chedule Referral to Outpatient Routine Gout of multiple sites Order ed: Dermatology Referral due to renal 12/11/2016 impairment, unspecified senior svp nicity Primary osteoarthritis involving multiple joints Hypovitaminosis D documented as of this encounter Procedures Procedure Name Priority Date/Time Associated Diagnosis Comme nts HEMOGRAM Routine 12/11/2016 2:22 Gout of multiple sites Re sults for this PM EDT due to renal procedure are i n impairment, the results unspecified chronicity secti on. DIFFERENTIAL, Routine 12/11/2016 2:22 Gout of multiple sites R esults for this AUTOMATED PM EDT due to renal procedure are i n impairment, the results unspecified chronicity secti on. VITAMIN D, 25-HYDROXY Routine 12/11/2016 2:22 Hypovitaminosis D Results for this PM EDT procedure are i n the results section. CBC (WITH DIFF) Routine 12/11/2016 2:22 Gout of multiple sites PM EDT due to renal impairment, unspecified chronicity URIC ACID Routine 12/11/2016 2:22 Gout of multiple sites Re sults for this PM EDT due to renal procedure are i n impairment, the results unspecified chronicity secti on. COMPREHENSIVE Routine 12/11/2016 2:22 Gout of multiple sites R esults for this METABOLIC PANEL PM EDT due to renal procedure ar e in (NON-FASTING) impairment, the results unspecified chronicity secti on. documented in this encounter Results Differential, Automated (12/11/2016 2:22 PM EDT) athologist Signature Neutrophils % 67.0 % [facility] Neutr Abs (ANC) 4.52 1.70 - [facility] 6.10 [facility] x10(3)/[facility] LABORATORY Lymphocytes % 20.4 % [facility] Lymphocytes Abs 1.4 0.9 - 3.2 [facility] x10(3)/[facility] LABORATORY Monocytes % 7.9 % [facility] Monocyte Abs 0.5 0.3 - 0.9 [facility] x10(3)/[facility] LABORATORY Eosinophils % 3.9 % [facility] Eosinophils Abs 0.3 0.0 - 0.4 [facility] x10(3)/[facility] LABORATORY Basophils % 0.4 % [facility] Basophils Abs 0.0 0.0 - 0.1 [facility] x10(3)/[facility] LABORATORY Immature Gran % 0.40 % [facility] Comment: Immature granulocytes(IG's)percentage an d absolute count will include metamyelocytes, myelocytes, and promyelo cytes. Blood smears from CBCs yielding IG's will be scanned manually for concor dance. If this scan disagrees with the automated IG or if promyelocytes are not ed, a manual differential will be performed. Honey Gran Abs 0.03 0.00 - 0.04 x10(3)/[facility] LAB[facility]ORY Specimen Anatomical Collection Method Collection Time Receive d Time (Source) Location / / Volume Laterality Blood specimen 12/11/2016 2:22 PM 017 2:29 (specimen) EDT PM EDT Resulting Agency Comment Spec In Lab Gina Gutierrez DO HEMATOLOGY ORDERABLES Performing Organization Address City/State/[place] [address] (ABNORMAL) Hemogram (12/11/2016 2:22 PM EDT) Analysis Performed At Patho logist Time Signature WBC 6.8 4.0 - 9.5 [facility] x10(3)/[facility] LABORATORY RBC 4.56 (L) 4.58 - [facility] 5.54 [facility] x10(6)/[facility] LABORATORY Hemoglobin 14.6 13.7 - [facility] 16.[facility] gm/dL [facility]ORY Hematocrit 40.9 40.5 - [facility] 48.5 % [facility]ORY MCV 89.7 82.9 - [facility] 93.[address] [facility] LABORATORY MCH 32.0 27.5 - [facility] 32.1 pg [facility] LAB[facility]ATORY MCHC 35.7 32.0 - [facility] 35.[facility] gm/dL [facility]ORY Platelets 160 145 - 357 [facility] x10(3)/[facility] LABORATORY RDWSD 45.0 36.0 - [facility] 45.[address] [facility] LABORATORY RDWCV 13.9 (H) 11.4 - [facility] 13.8 % [facility] LABORATORY MPV 10.7 7.6 - 12.9 [facility] LABORATORY nRBC % Auto 0.0 % [facility] nRBC Abs Auto 0.000 0.000 - [facility] 0.000 [facility] x10(3)/[facility] LABORATORY Specimen Anatomical Collection Method Collection Time Receive d Time (Source) Location / / Volume Laterality Blood specimen 12/11/2016 2:22 PM 017 2:29 (specimen) EDT PM EDT Resulting Agency Comment Spec In Lab Gina Gutierrez DO HEMATOLOGY ORDERABLES Performing Organization Address City/State/[place] [address] (ABNORMAL) Comprehensive metabolic panel (non-fasting) (12/11/2016 2:22 PM EDT) P athologist Signature Glucose Lvl 99 65 - 199 [facility] mg/dL [facility] Comment: Diabetes: >=200 mg/dL plus symp toms BUN 23 (H) 10 - 20 mg/dL [facility] Creatinine 1.43 0.80 - 1.50 mg/dL [facility] Sodium 139 135 - 145 mmol/L [facility] Potassium 4.3 3.5 - 5.0 mmol/L [facility] Comment: Please note: ??Patients with WBC >100,00 0 may have falsely elevated Potassium levels. ??For accurate Potassium quantif ication in these patients send serum separator tube (gold top) for subsequent determinations. ??Contact the Clinical Chemistry Laboratory if there are any qu estions. Chloride 102 98 - 107 mmol/L [facility] CO2 23 22 - 31 mmol/L [facility] Anion Gap 14 5 - 15 mmol/L [facility] Calcium 9.5 8.5 - 10.5 mg/dL [facility] Total Protein 7.7 6.1 - 8.0 gm/dL [facility] Albumin 4.6 3.2 - 5.2 gm/dL [facility] AST 18 0 - 39 unit/L [facility] ALT 27 0 - 55 unit/L [facility] Alk Phos 54 40 - 120 unit/L [facility] Total Bilirubin 0.5 0.2 - 1.3 mg/dL [facility] Estimated GFR 51 (L) >=60 [facility] Comment: The reported eGFR should be multiplied b y 1.2 for patients. The MDRD is not an appropriate measure o f renal function for patients with body mass extremes or in patients with acute kidney failure. http://Pennant.Pushpay/DHnkdep http://[employer]/DHMCnkf Specimen Anatomical Collection Method Collection Time Receive d Time (Source) Location / / Volume Laterality Blood specimen 12/11/2016 2:22 PM 017 2:29 (specimen) EDT PM EDT Resulting Agency Comment Spec In Lab Gina Gutierrez DO CHEMISTRY ORDERABLES Performing Organization Address City/[facility]/ZIP Code Phon e Number [address] Vitamin D, 25-Hydroxy (12/11/2016 2:22 PM EDT) athologist Signature 25-OH Vit D 58 30 - 100 [facility] Total ng/mL [facility] Comment: Deficient <10 ng/mL Insufficient 10 to 29 ng/mL Sufficient 30 to 100 ng/mL Potential Intoxication >100 ng/mL According to the [place] National Osteoporosi s Foundation, Vitamin D concentrations >30 ng/mL are sufficient to protect bone health. ??The National Kidney Foundation has similarly stated that pat ients with Vitamin D concentrations <30ng/mL should be considered to be insu fficient or deficient. http://Pennant.Pushpay/nkf-guidelines http://Pennant.Pushpay/nejm-VitD The [employer] Vitamin D Immunoassay detec ts both 25-OH Vitamin D2 and 25-OH Vitamin D3, but only a total Vitamin D c oncentration is reported. Specimen Anatomical Collection Method Collection Time Receive d Time (Source) Location / / Volume Laterality Blood specimen 12/11/2016 2:22 PM 017 7:15 (specimen) EDT AM EDT Resulting Agency Comment Spec In Lab Gina Gutierrez DO CHEMISTRY ORDERABLES Performing Organization Address City/[facility] Phon e Number [address] Uric acid (12/11/2016 2:22 PM EDT) athologist Signature Uric Acid 4.5 3.5 - 8.5 [facility] mg/dL [facility] LABORATORY Specimen Anatomical Collection Method Collection Time Receive d Time (Source) Location / / Volume Laterality Blood specimen 12/11/2016 2:22 PM 017 2:29 (specimen) EDT PM EDT Resulting Agency Comment Spec In Lab Gina Gutierrez DO CHEMISTRY ORDERABLES Performing Organization Address City/State/[place] [address] documented in this encounter Visit Diagnoses Diagnosis Gout of multiple sites due to renal impa irment, unspecified chronicity Primary osteoarthritis involving multipl e joints Hypovitaminosis D Unspecified vitamin D deficiency documented in this encounter Care Teams Chemical Technician Relationship Specialty Start Date End Date Parker Dang MD PCP - General General Internal Medicine 10/01/16 [facility] [place] [address] documented as of this encounter
--- OUTSIDE RECORDS SUMMARY | 2021-08-29 11:45 | XMS_ITS | Encounter Summary ---
:1960 Author Organization [facility] [place] [address] Care Team Providers Name Role Phone Parker Dang MD Primary Care Provider Reason for Visit Reason Comments Establish Care Annual Exam Prostate, Nose Encounter Details Date Type Department Care Team Description 01/18/2017 Office Visit Internal Medicine at Parker Dang Est ablishing care with new doctor, encounter for; Heidi Mendoza MD Healthcare maintenance; [address] [facility] Need for prophylactic vaccin ation with combined woajejfcmu-cpgxbdn-hntqczhxd (DTP) vaccine; [place], [place] Annual physical exam; [id number] GENERAL INTERNAL Staphylococcus infection of nose; [phone] Epistaxis; [place], [place] [address] BPH with obstruction/lower urinary tract symptoms Social History Tobacco Use Types Packs/Day Years [...] place to sleep or slept in a prison (including now)? Sex Assigned at Date Recorded Male 05/03/2020 3:20 PM EDT documented as of this encounter Last Filed Vital Signs Vital Sign Reading Time Taken Comments Blood Pressure 128/82 01/18/2017 2:17 PM EST Pulse 65 01/18/2017 2:17 PM EST Temperature 36.7 ??C (98.1 ??F) 01/18/2017 2:17 PM EST Respiratory Rate 20 01/18/2017 2:17 PM EST Oxygen Saturation 96% 01/18/2017 2:17 PM EST Inhaled Oxygen Concentration - - Weight 93.4 kg (205 lb 12.8 oz) 01/18/2017 2:17 PM EST Height 175.5 cm (5' 9.09) 01/18/2017 2:17 PM EST Body Mass Index 30.31 01/18/2017 2:17 PM EST documented in this encounter Patient Instructions Patient InstructionsSusie Jasso MA - 01/18/2017 2:00 PM EST - Please send a copy of your completed advanced directives to be incorporated into your medical record. - nosebleed and staph infection: apply bacitracin twice daily for two weeks. Avoid blowing the nose.Do use nasal saline sprays nightly (you can pick these up bxnc-tbs-tqcylbd at a pharmacy). After twoweeks, change to vaseline applied nightly into the nose. If, after one month, no improvement in the nose, contact me and we can do a course of oral antibiotics, either Keflex or Bactrim. - enlarged prostate: I have requested a CT scan to see if prostate is visualized on that exam. Stop the doxazosin and start tamsulosin. Wait a month. If no improvement in your urinary symptoms, contactme for a urology referral to discuss other treatment options - TDaP today documented in this encounter Progress Notes Parker Dang MD - 01/18/2017 2:00 PM EST Subjective: Patient ID: Mohit Dotson is a 57 y.o. male. HPI Here to establish care/annual exam. I'm vertical and ventilating. Here to establish care; he felt that his last PCP wasn't helping himadequately. History of CKD: thought to be due to hypertension. Most recent creatinine is essentially at baselinecompared to other values over the past few years. BPH with LUTS: He is taking two prostate pills for this (doxazosin and finasteride). He drinks a lotof water during the day, red or white wine with meals. Not a social drinker. No beer (because of gout). He wakes up 3 times at night with the urge to void, but can only have a little 'trickle' of water. He has had a GABRIEL at some point in the past few years. The stream is weak, there is little pressure.It just dribbles. Gout: sees rheumatology here for this. He was recently told he could lower his allopurinol dose to 300 mg daily. Hypertension, hyperlipidemia: on Atenolol 50 mg daily, atorvastatin 40 mg daily. Has a right thumbnail issue; has an appointment coming up with dermatology for this. Also has a 'thing in my nose.' Has had epistaxis since childhood, and it seems to be worse in the fernández. But in addition to that, he has an 'open sore in my nose.' His first PCP told him to use Bacitracin. This didn't seem to help. He thinks it's getting bigger. He has used Vaseline to try to keep it moist, but that doesn't seem to 'clean it up.' No pus. Hasn't used Afrin. Exercise: nothing routine Lipids: UTD; checked in February Colonoscopy: UTD; performed in 2016. Due again in 2021 Other age appropriate screenings: HCV Ab screening is UTD Influenza: declined Other Immunizations: due for TDaP Depression: PHQ9 Questionnaires Data (Clinic and Pt Entered): Today's value PHQ-9 QUESTIONNAIRE (AMB) 01/18/2017 PHQ - 9 Score (Clinic) 4 (Minimal Depression) Little interest or pleasure (Clinic) Not at all Little interest or pleasure (Patient) - Down, depressed, hopeless (Clinic) Not at all Down, depressed, hopeless (Patient) - Trouble sleeping (Clinic) More than half the days Tired or no energy (Clinic) More than half the days Poor appetite or overeating (Clinic) Not at all Feeling like a failure (Clinic) Not at all Trouble concentrating (Clinic) Not at all Moving or speaking slowly (Clinic) Not at all Would be better off (Clinic) Not at all How difficult are the problems (Clinic) Not difficult at all Review of Systems REVIEW OF SYSTEMS 01/13/2017 Constitutional Weight gain, Fatigue, lack of energy, Hot flashes, Pain Ear / nose / throat / mouth Nose bleeds, Mouth sores Eyes None of the above Respiratory Shortness of breath Cardiovascular None of the above Gastrointestinal Blood in stools, Abdominal pain, Feeling bloated, Stool incontinence, Other stomach, intestine, or bowel symptoms Skin, hair Dry skin, Sweats Musculoskeletal Joint stiffness, Back pain, Joint pain, Other symptoms with joints or muscles Neurological Muscular weakness Hematologic / Lymphatic Night sweats Genitourinary Frequent urination, Urinary incontinence, Decreased urinary flow Other Symptoms I was put on Finasteride 5mg & Doxazosin Mesylate 4mg, with little help. Bloody stools: this was due to a hemorrhoid. He had a colonoscopy in August when he was diagnosed withdiverticulitis. He was instructed to use a bowel softener/fiber supplement, which he is using daily with improvement. SOB: I have always had this and not one doctor has found out why. Objective: Physical Exam Constitutional: The patient appears well-developed and well-nourished. HENT: Normal B/L otoscopic exam. Moist oral mucosa. Dry nasal mucosa. There is a scabbed, slightly ulcerated lesion in the right nasal septum with purulent drainage and some mild active bleeding. Head: Normocephalic. Eyes: Pupils are equal, round, [...] normal mood and affect, and normal behavior. Prostate: Prostate is soft, non-tender, symmetric, without masses. It is moderately enlarged. Assessment and Plan: 57 yo M with CKD, gout, hypertension, BPH with LUTS, history of TIA (on statin and aspirin) here to establish care. - epistaxis and staph infection: apply bacitracin twice daily for two weeks. Avoid blowing the nose.Do use nasal saline sprays nightly. After two weeks, change to vaseline applied nightly into the nose. If, after one month, no improvement in the nose, contact me and we can do a course of cephalexin or Bactrim. - BPH with LUTS: His GABRIEL wasn't very remarkable, but his symptoms sound classic for outlet obstruction with complaints of weakened stream, small volumes. Will request CT scan to see if prostate is visualized on that exam. We will start by switching out his doxazosin for the apzjrp-qz-akuo tamsulosin and wait a month. If no improvement in his urinary symptoms, consider urology referral - TDaP today - Advanced directives - hypertension: stable - hyperlipidemia: stable documented in this encounter Miscellaneous Notes Advance Care Plan Note - Susie Jasso MA - 01/18/2017 2:00 PM EST Patient has advanced directives and agreed to provide a copy to be incorporated into EMR. DPOA is Sherley Jin. Patient declined referral to advanced care planning today, 01/18/2017. documented in this encounter Plan of Treatment Not on filedocumented as of this encounter Visit Diagnoses Diagnosis Establishing care with new doctorameena for Other reasons for seeking consultation Healthcare maintenance Routine general medical examination at a health care facility Need for prophylactic vaccination with c ombined dupigrqvkh-voxuwmr-degujaumc (DTP) vaccine Annual physical exam Routine general medical examination at a health care facility Staphylococcus infection of nose Other diseases of nasal cavity and sinus es Epistaxis BPH with obstruction/lower urinary tract symptoms Hypertrophy of prostate with urinary obs truction and other lower urinary tract symptoms (LUTS) documented in this encounter Care Teams Community Relations Specialist Relationship Specialty Start Date End Date Parker Dang MD PCP - General General Internal Medicine 10/01/16 [facility] [place] [address] documented as of this encounter
--- OUTSIDE RECORDS SUMMARY | 2021-08-29 11:45 | XMS_ITS | Encounter Summary ---
:1960 Author Organization [facility] [place] [address] Care Team Providers Name Role Phone Nicolás Nicholas MD Primary Care Provider Encounter Details Date Type Department Care Team Description 02/08/2016 Orders Only Rheumatology at [facility] Nona Sams Gout, unspecified cause, uns pecified chronicity, unspecified site; [facility] D, DO CKD (chronic kidney disease), unspecifie d stage; [facility] Proteinuria; [place] [address] Gynecomastia [phone] RHEUMATOLOGY DEP [place], [place] [address] (Wo rk) Social History Tobacco [...] breast documented in this encounter Care Teams Scientific Photographer Relationship Specialty Start Date End Date Nicolás Nicholas MD PCP - General General Internal Medicine 04/05/15 documented as of this encounter
--- OUTSIDE RECORDS SUMMARY | 2021-08-29 11:45 | XMS_ITS | Encounter Summary ---
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; [facility] D, DO CKD (chronic kidney disease) stage 3, GF R 30-59 ml/[place] [address] RHEUMATOLOGY [place], [place] [address] (Wo rk) Social History Tobacco [...] Sign Reading Time Taken Comments Blood Pressure 142/69 08/30/2015 1:46 PM EDT Pulse 58 08/30/2015 1:46 PM EDT Temperature 36.8 ??C (98.3 ??F) 08/30/2015 1:46 PM EDT Respiratory Rate - - Oxygen Saturation 99% 08/30/2015 1:46 PM EDT Inhaled Oxygen Concentration - - Weight 94.3 kg (208 lb) 08/30/2015 1:46 PM EDT Height 177.8 cm (5' 10) 08/30/2015 1:46 PM EDT Body Mass Index 29.84 08/30/2015 1:46 PM EDT documented in this encounter Progress Notes Nona Sams, DO - 08/30/2015 2:00 PM EDT HPI Pt last seen in May 2015 at that visit he noted a recent admission for TIA. Pt continues to have intermittent joint swelling and redness with associated pain. He reports the episodes are relatively brief lasting 1-7 days, but feel like a knife in his foot. He cannot bear weight when they occur. Pains occur in the great toe and the ankle, along w the 2nd toes on occ. He never took colchicine regularly, only w attacks. Notes when he took it for attacks after 4 days or so he would get diarrhea. He is concerned as to why he continues to have pain when he is watching his diet and watching not tohave trauma to his feet. He has avoided beer, has red meat <1 x per week, and reprots avoiding high fructose corn syrup. Background hx: Mohit Dotson is a 55 [...] negative. He was sent to podiatry in [place] [facility] rheumatology as his xrays of his feet [...] He has had crystal proven gout at [facility] He also has pain in his knees (feels his knees will give out), feels ankles with give out The joint pain started 2 years ago when he tried to go snowshoeing, it started in his ankles swelling, and the shoudlers, wrists, eblows, low back. He notes he has some aching in the am feels like he ran a marathon at [facility] the day he is in pain. He [...] sided n/t Mri wnl Physical Examination: BP 142/69 Pulse 58 Temp 36.8 ??C (98.3 ??F) (Oral) Ht 177.8 cm (5' 10) Wt 94.3 kg (208 lb) SpO2 99%BMI 29.84 kg/m2 General: Alert and oriented. Well [...] Elbows: NML Hips: NML Knees: NML Ankles: NML, Feet: Left foot first mtp w bony enlargement and decr rom, no swelling, erythema or warmth noded Nails: No nail pitting, onycholysis or periungual erythema noted but he does have some dystrophic chnages on bl thumbs Neurologic: gait nl from all ext Skin: No rash seen Laboratory Data: rf neg [place] neg ua 300 +protein-repeat 100 protein Esr/crp nl Creatinine 1.5 Uric acid 5.1 Studies: Ultrasound in clinic today 08/30/15 Rheumatology Musculoskeletal Ultrasound Report Date of service: 08/30/2015 Indication for Exam: Assess for changes c/w gout first mtp B-mode ultrasound is performed utilizing an 8-18 mHz linear probe. Static real- time views in longitudinal and transverse (short axis) orientation were obtained. Images of the bl mtp were obtained. The left first mtp demonstrates erosion of the metatarsal confirmed in two perpendicular views, as well as tophus formation, the right first mtp demonstsrates doubleline sign without o cortical irregularity or destruction. Synovial fluid and/or hypertrophy are not noted at the joint margins. Negative power doppler studies. Flexor tendons are intact with no tenosynovial fluid or distension. Impression/Recommendations : Mohit Dotson is a 55 y.o. male w a hx of tophaceous erosive gout and osteoarthritis. Pt continues to have episodes of either mild gout flares or inflamm oa. Given the presence of tophi on us exam, will push his uric acid to <5, and add colchicine back onto his regimen until 3 mos after the uric acid is at goal. If he does not have improvement with this regimen, will treat as inflamm oa, which have discussed with him, would treat w tylenol for pain control or consider trial of plaquenil, Have discussed plaquenil w him previously and he is fearful of the side effects. pt does have osteoarhtritis of the pips cmc and great toe on exam and radiographically, discussed at last visit t fish oil (omega 3) and glucosamine and chondroitin. He can also use topically anti- inflammatories, such as pennsaid if desired. con't tylenol up to 3000 mg per day Spent 15 minutes discussing with him, that lifestyle changes cannot single handedly explain or control his disease, and he requires medications to control this. He did not understand his RF for gout and discussed his htn, ckd and hpl are all risk factors. He will continue to follow his diet as this does help, but he requires medications on top of this. Ckd: pt w ckd stage 3, will recheck renal function today for colchicine dosing. Pt will fu with pcm regarding his ckd CC: ANNI NICHOLAS MD documented in this encounter Plan of Treatment Not on filedocumented as of this encounter Procedures Procedure Name Priority Date/Time Associated Comments Diagnosis URIC ACID Routine 08/30/2015 2:50 PM Idiopathic chronic Res ults for this EDT gout of left foot procedure are in with tops the results section. MAGNESIUM Routine 08/30/2015 2:50 PM Idiopathic chronic Res ults for this EDT gout of left foot procedure are in with tops the results section. COMPREHENSIVE Routine 08/30/2015 2:50 PM Idiopathic chronic Re sults for this METABOLIC PANEL EDT gout of left foot procedu re are in (NON-FASTING) with [facility] the results section. documented in this encounter Results Magnesium (08/30/2015 2:50 PM EDT) athologist Signature Magnesium 0.85 0.69 - 1.07 [facility] mmol/L [facility] Specimen Anatomical Collection Method Collection Time Receive d Time (Source) Location / / Volume Laterality Blood specimen 08/30/2015 2:50 PM 016 2:54 (specimen) EDT PM EDT Resulting Agency Comment Spec In Lab Nona Sams DO CHEMISTRY ORDERABLES Performing Organization Address City/State/[place] [address] (ABNORMAL) Comprehensive metabolic panel (non-fasting) (08/30/2015 2:50 PM EDT) athologist Signature Glucose Lvl 97 65 - 199 [facility] mg[facility]dL [facility] Comment: Diabetes: >=200 mg/dL plus symp toms BUN 24 (H) 10 - 20 mg/dL [facility] Creatinine 1.38 0.80 - 1.50 mg/dL [facility] Comment: Please note that the pediatric reference intervals supplied above were not validated at [facility]. Results from pediatri c patients should be interpreted in conjunction to the patient's age, height and muscle mass. Sodium 141 135 - 145 mmol/L [facility] Potassium 4.5 3.5 - 5.0 mmol/L [facility] Comment: Please note: ??Patients with WBC >100,00 0 may have falsely elevated Potassium levels. ??For accurate Potassium quantif ication in these patients send serum separator tube (gold top) for subsequent determinations. ??Contact the Clinical Chemistry Laboratory if there are any qu estions. Chloride 103 98 - 107 mmol/L [facility] CO2 23 22 - 31 mmol/L [facility] Anion Gap 15 5 - 15 mmol/L [facility] Calcium 9.5 8.5 - 10.5 mg/dL [facility] Total Protein 7.3 6.1 - 8.0 gm/dL [facility] Albumin 4.4 3.2 - 5.2 gm/dL [facility] AST 17 0 - 39 unit/L [facility] ALT 28 0 - 55 unit/L [facility] Alk Phos 53 40 - 120 unit/L [facility] Total Bilirubin 0.5 0.2 - 1.3 mg/dL [facility] Bili, Direct 0.1 0.0 - 0.3 mg/dL [facility] Estimated GFR 53 (L) >=60 [facility] Comment: This estimated GFR (eGFR) [...] the following links into your internet browser. http://MobileDay/DHnkdep [email or web address]/DHMCnkf Specimen Anatomical Collection Method Collection Time Receive d Time (Source) Location / / Volume Laterality Blood specimen 08/30/2015 2:50 PM 016 2:54 (specimen) EDT PM EDT Resulting Agency Comment Spec In Lab Nona Sams DO CHEMISTRY ORDERABLES Performing Organization Address City/[facility] Care [facility]/ZIP Code Phon e Number [address] Uric acid (08/30/2015 2:50 PM EDT) P athologist Signature Uric Acid 5.0 3.5 - 8.5 [facility] mg/dL [facility] Specimen Anatomical Collection Method Collection Time Receive d Time (Source) Location / / Volume Laterality Blood specimen 08/30/2015 2:50 PM 016 2:54 (specimen) EDT PM EDT Resulting Agency Comment Spec In Lab Nona Sams DO CHEMISTRY ORDERABLES Performing Organization Address City/[facility]/ZIP [place] [address] documented in this encounter Visit Diagnoses Diagnosis Idiopathic chronic gout of left foot wit parmjit colón CKD (chronic kidney disease) stage 3, GF R 30-59 ml/min Chronic kidney disease, Stage III (moder ate) documented in this encounter Care Teams Reservations Specialist Relationship Specialty Start Date End Date Anni Nicholas MD PCP - General General Internal Medicine 04/05/15 documented as of this encounter
--- OUTSIDE RECORDS SUMMARY | 2021-08-29 11:45 | XMS_ITS | Encounter Summary ---
:1960 Author Organization [facility] [place] [address] Care Team Providers Name Role Phone Parker Dang MD Primary Care Provider Encounter Details Date Type Department Care Team Description 05/21/2017 Office Visit Urology at [facility] Ana Dawn Lower urinary tract [facility] MD Chitra symptoms (LUTS) [place] [address] UROLOGY DEPT. [phone] [place], [place] [address] (Wo rk) Social History Tobacco [...] documented as of this encounter Progress Notes Ana Dawn MD - 05/21/2017 2:00 PM EDT Pt with LUTS who is sent for UDS. He has been on flomax and finasteride and has ongoing symptoms. He is most bothered by his irritative symptoms. On his study today he has: Complete emptying prior to the study No DO and a very good capacity Unable to determine obstruction as he couldn't void with the catheter in Failure of relaxation during attempted voiding Normal uroflow and complete emptying post study I explained to this pt with LUTS that he had initial poor relaxation of his pelvic floor with attempted voiding. I suggested that he go to PT for pelvic floor relaxation. A referral was placed. I explained that as we were unable to do a pressure flow study I therefore cannot prove or disprove obstruction. I told him that this means that there is no guarantee that his symptoms improve if he had a TURP. Of note he emptied his bladder very [...] tell me what he was taking in during the course of a day.. documented in this encounter Plan of Treatment Not on filedocumented as of this encounter Procedures Procedure Name Priority Date/Time Associated Diagnosis Comme nts UROLOGY SCAN 05/21/2017 12:00 AM Results for this EDT procedure are i n the results section . UROLOGY SCAN 05/21/2017 12:00 AM Results for this EDT procedure are i n the results section . documented in this encounter Results SCAN DOC: UROLOGY (05/21/2017 12:00 AM EDT) Narrative 05/21/2017 12:00 AM EDT This result has an attachment that is no t available. Ordered by an unspecified provider. Scanning Provider MEDIA MGR SCAN EXT ORDR/RSLT SCAN DOC: UROLOGY (05/21/2017 12:00 AM EDT) Narrative 05/21/2017 12:00 AM EDT This result has an attachment that is no t available. Ordered by an unspecified provider. Scanning Provider MEDIA MGR SCAN EXT ORDR/RSLT documented in this encounter Visit Diagnoses Diagnosis Lower urinary tract symptoms (LUTS) Other symptoms involving urinary system documented in this encounter Care Teams Plant Custodian Relationship Specialty Start Date End Date Parker Dang MD PCP - General General Internal Medicine 10/01/16 [facility] [place] [address] documented as of this encounter
--- OUTSIDE RECORDS SUMMARY | 2021-08-29 11:45 | XMS_ITS | Encounter Summary ---
:1960 Author Organization [facility] [place] [address] Care Team Providers Name Role Phone Nicolás Nichoals MD Primary Care Provider Encounter Details Date Type Department Care Team Description 06/14/2016 Orders Only Rheumatology at [facility] Gina Gutierrez, [facility] [place] [address] [facility] [phone] RHEUMATOLOGY [place], [place] [address] (Wo rk) Social History Tobacco [...] on filedocumented in this encounter Care Teams Barge Pilot Relationship Specialty Start Date End Date Nicolás Nicholas MD PCP - General General Internal Medicine 04/05/15 documented as of this encounter
--- OUTSIDE RECORDS SUMMARY | 2021-08-29 11:45 | XMS_ITS | Encounter Summary ---
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 [address] Referral ID Status Reason Start Date Expiration Date Visits V isits Requested Authorized [id number] Closed Consult, 12/11/2016 12/11/2017 1 1 Test & Treat Encounter Details Date Type Department Care Team Description 03/05/2017 [facility] lar lentigo; Ron Keating MD Dermatofibroma; [address] [facility] Seborrheic keratosis; [place] [address] [address] [address] Excoriation; [phone] [facility] Benign nevus of skin; RD-DERMATOLGY Nail dystrophy [place], [place] [address] Social History Tobacco Use Types [...] documented as of this encounter Progress Notes Bailey Reyes MD - 03/05/2017 2:45 PM EST Images from the original note were not included. DERMATOLOGY NEW PATIENT NOTE Date of service: 03/05/2017 Moiht Dotson : 1960 Provider: Bailey Reyes MD Chief Complaint Patient presents with ??? Skin Lesion thickened right thumb nail,red spot on the anterior scalp SKIN HISTORY: Negative skin cancer HPI The patient is seen at the request of Dr Gutierrez., who instructed the patient to be seen for evaluation of above. Mohit Dotson is a 57 y.o. male, new to me and to dermatology. Here today for with concerns of thickening area on the right lateral thumb nail for the past 2 yrs. He admits to clipping the nail and skin around the nail for the past 2 years. He has also tried over the counter antifungal cream and solution without improvement. No draining. No history of trauma. He also has a red spot on the anterior forehead which he admits he picked at it with a pin because he thought it was a pimple.He complains of raw feeling in the right nostril for almost a year. He does have a history of nose bleeds and was told he should have this cauterized. He has a history of gout and osteoarthritis and is followed by Dr Gutierrez. MEDS: Current Outpatient Prescriptions Medication Sig Dispense Refill ??? tamsulosin (FLOMAX) 0.4 mg Capsule, Sust. [...] Tablet Take 50 mg by mouth daily. ??? allopurinol (ZYLOPRIM) 300 mg Tablet Take 300 mg by mouth daily. No current facility-administered medications for this visit. ADR: Review of patient's allergies indicates no known allergies. MEDICAL HISTORY: Patient Active Problem List Diagnosis Code ??? Hypertension I10 ??? Hyperlipidemia E78.5 ??? Gout M10.9 ??? BPH (benign prostatic hyperplasia) N40.0 ??? Aortic ectasia I77.819 ??? 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 CKD (chronic kidney disease) N18.9 ??? Diverticulosis of both small and large intestine without perforation or abscess without [id number] FAMILY HISTORY: Negative skin cancer ROS General: feeling well Skin: denies other skin complaints EXAM General: NAD, pleasant, cooperative Skin: This includes examination of the skin of the face, ears, neck, chest, axillae, left and right upper and lower extremities, hands and feet, abdomen, and except the areas covered by underwear were not examined. SIGNIFICANT SKIN FINDINGS: A. Right thumb nail: longitudinal nail dystrophy (thickening of the lateral nail fold with ?villous/filliform scale at proximal nail fold Photo(s) taken?? by Sherley Ray, Clinical Scribe, with patient's verbal permission for use for clinical and education purposes. ?? B. Sun-exposed areas: 0.3-0.6cm light-brown evenly pigmented, well-demarcated macules ?? C. Torso and extremities: Scattered 0.4-0.6 cm pink-brown papules/plaque with waxy stuck on appearance. ?? D. Multiple, 0.3-0.5cm, medium-brown, evenly-pigmented macules and papules. All with regular pigmentpattern on dermoscopy. No pigmented lesions suspicious for melanoma. E. Right posterior shoulder: firm papule, centrally raised and sclerotic, with peripheral hyperpigmentation and dimpling with lateral pressure. F. Right nares: no visible changes noticed ASSESSMENT/PLAN: A. ?Onychomycosis vs traumatic nail dystrophy vs considered proximal nail fold lesion such as onychomatricoma, verruca - Nail clipping for PAS and fungal culture as first step B. Lentigines - Discussed benign nature of lesion and provided reassurance. No treatment necessary at this time. C. Seborrheic Keratosis - Patient reassured lesions are benign in nature -Patient advised to call, should they become inflamed or irritated D. Benign appearing nevi, patient reassured - Patient instructed to return to clinic for re-evaluation of area if notes change, growth, bleeding, etc. - Advised to watch for anything new or changing. ? E. Dermatofibroma (DF) - Discussed benign nature of lesion and provided reassurance. No treatment necessary at this time. ?? F. No visible primary dermatosis affecting nares - Patient will followup with PCP Follow up in Return to clinic in 1 year for full skin exam, or sooner if needed. A reminder letter will be sent to schedule. Patient instructed to call with questions or concerns. Additional follow up based on culture results. I am documenting this encounter acting as the scribe for and in the presence of Dr. Kristina Reyes.: SIENNA DEE LPN and Sherley Ray, Clinical Scribe I performed the above scribed service and agree with the accuracy of the documentation in this encounter. Bailey Reyes MD Fraud Manager of Dermatology, Department of Caretaker GroundsFraud Managerembedded software design engineer (Dermatopathology) [facility] cc: Parker Dang MD documented in this encounter Plan of Treatment Not on filedocumented as of this encounter Procedures Procedure Name Priority Date/Time Associated Diagnosis Comme nts SURGICAL PATHOLOGY Routine 03/05/2017 3:31 PM Res ults for this REPORT EST procedure are i n the results section. SPECIMEN TO Routine 03/05/2017 3:31 PM Nail dystrophy Results for this PATHOLOGY EST procedure are i n the results section. documented in this encounter Results Surgical Pathology Report (03/05/2017 3:31 PM EST) Component Value Ref Test Analysis Performed At [facility] Range Method Time Signature Surgical [id number] ? Location: [facility] Report The signing pathologist has (i) examined the relevant preparation(s) for the [facility] specimen(s) and (ii) rendered or confirmed the diagnosis(es) . H[facility] . ?Surgic al Pathology DIAGNOSIS Nail, right thumb, clippings: - PAS/F is negative for fungal hyphae Electronically signed by: ??Carlos Conde MD Verified: ??03/07/2017 ?Dermatopathologist, Bone & Soft Tissue Pathologist Performed at: ??-[facility] Dept. of Pathology, [place], [place] CLINICAL INFORMATION Specimen Submitted: A - Nail clippings from the right thumb lateral nail Clinical History: Nail dystrophy,? Onychomycosis Clinical Diagnosis: Nail dystrophy,? Onychomycosis SPECIMEN PROCESSING A - ??Labeled/Fixative: Right lateral thumb, fresh. Quantity/Size: Fragments, 0.5 x 0.2 x 0.2 cm in aggregate. Tissue Description: Friable figueroa to anderson-white ungual tissue. Sections/Processing: Submitted en-toto. (T1) ??shb Specimen (Source) Anatomical Collection Method Collection Time Re ceived Time Location / / Volume Laterality 03/05/2017 3:31 PM EST Bailey Reyes MD PATHOLOGY/CYTOLOGY ORDERABLE S Performing Organization Address City/State/[place] [address] Specimen to Pathology (03/05/2017 3:31 PM EST) Specimen Anatomical Collection Method Collection Time Receive d Time (Source) Location / / Volume Laterality AP Specimen 03/05/2017 3:31 PM 8 6:21 EST PM EST Narrative [facility] - 03/05/2017 6:22 PM EST Specimen requisition ordered. ??Separate Pathology report to follow Resulting Agency Comment Spec In Lab Bailey Reyes MD PATHOLOGY/CYTOLOGY ORDERABLE S Performing Organization Address City/State/[place] [address] documented in this encounter Visit Diagnoses Diagnosis Solar lentigo Other dyschromia Dermatofibroma Benign neoplasm of skin, site unspecifie d Seborrheic keratosis Other seborrheic keratosis Excoriation Other and unspecified superficial injury of other, multiple, and unspecified sites, without mention of infection Benign nevus of skin Benign neoplasm of skin, site unspecifie d Nail dystrophy Other specified disease of nail documented in this encounter Care Teams Medical Charge Entry Specialist Relationship Specialty Start Date End Date Parker Dang MD PCP - General General Internal Medicine 10/01/16 [facility] [address] documented as of this encounter
--- OUTSIDE RECORDS SUMMARY | 2021-08-29 11:45 | XMS_ITS | Encounter Summary ---
:1960 Author Organization [facility] [place] [address] Care Team Providers Name Role Phone Nicolás Nicholas MD Primary Care Provider Encounter Details Date Type Department Care Team Description 12/02/2015 Hospital Encounter XRay at [facility] Nona Sams Palindromic [address] [place] [address] Dr Park, DO rheumatism [facility] [place] [id number] [place], [place] [address] Social History Tobacco Use Types [...] place to sleep or slept in a assisted (including now)? Sex Assigned at Date Recorded Male 05/03/2020 3:20 PM EDT documented as of this encounter Medications at Time of Discharge Medication Sig Dispensed Refills Start Date End Date predniSONE (DELTASONE) 10 Take 1 tablet by 7 tablet 0 11/1801/31/2016 mg TabletIndications: mouth daily. Palindromic rheumatism aspirin 81 mg Tablet, Take 81 mg by mouth 0 05/29/2017 Delayed Release daily. 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 unspecified cause, unspecified chronicity, unspecified site, CKD (chronic kidney disease), unspecified stage, Proteinuria, Gynecomastia atenolol (TENORMIN) 50 mg Take 50 mg by mouth 0 05/23/2017 TabletIndications: Gout, daily. unspecified cause, unspecified chronicity, unspecified site, CKD (chronic kidney disease), unspecified stage, Proteinuria, Gynecomastia allopurinol (ZYLOPRIM) 300 Take 300 mg by 0 03/07/2017 mg TabletIndications: mouth daily. Gout, unspecified cause, unspecified chronicity, unspecified site, CKD (chronic kidney disease), unspecified stage, Proteinuria, Gynecomastia colchicine (COLCRYS) 0.6 Take 0.6 mg by 0 02/08/2016 mg TabletIndications: mouth 2 times daily Gout, unspecified cause, as needed. Reported unspecified chronicity, on 01/31/2016 unspecified site, CKD (chronic kidney disease), unspecified stage, Proteinuria, Gynecomastia documented as of this encounter Plan of Treatment Not on filedocumented as of this encounter Procedures Procedure Name Priority Date/Time Associated Diagnosis Comme nts XR LUMBAR SPINE 2 Routine 12/02/2015 2:31 PM Palindromic Resu lts for this OR 3 VIEWS EDT rheumatism procedure are i n the results section. documented in this encounter Results XR Lumbar Spine 2 [...] findings, RICKI HUTSON at 12/02/2015 2:58 PM Nona Sams DO IMG DX ORDERABLES documented in this encounter Visit Diagnoses Diagnosis Palindromic rheumatism Palindromic rheumatism, site unspecified documented in this encounter Care Teams Brush Clearing Laborer Relationship Specialty Start Date End Date Nicolás Nicholas MD PCP - General General Internal Medicine 04/05/15 documented as of this encounter
--- OUTSIDE RECORDS SUMMARY | 2021-08-29 11:45 | XMS_ITS | Encounter Summary ---
:1960 Author Organization [facility] [place] [address] Care Team Providers Name Role Phone Anni Nicholas MD Primary Care Provider Encounter Details Date Type Department Care Team Description 05/25/2015 Office Visit Rheumatology at [facility] Nona Sams Arthritis of first MTP joint ; [facility] D, DO Fatigue, unspecified type; [facility] [place] [address] [address] [address] [phone] RHEUMATOLOGY [place], [place] [address] (Wo rk) Social History Tobacco [...] Sign Reading Time Taken Comments Blood Pressure 139/81 05/25/2015 1:50 PM EDT Pulse 52 05/25/2015 1:50 PM EDT Temperature 36.5 ??C (97.7 ??F) 05/25/2015 1:50 PM EDT Respiratory Rate - - Oxygen Saturation 99% 05/25/2015 1:50 PM EDT Inhaled Oxygen Concentration - - Weight 95.5 kg (210 lb 9.6 oz) 05/25/2015 1:50 PM EDT Height 177.8 cm (5' 10) 05/25/2015 1:50 PM EDT Body Mass Index 30.22 05/25/2015 1:50 PM EDT documented in this encounter Patient Instructions Patient InstructionsMaNona henning DO - 05/25/2015 2:29 PM EDT Osteoarthritis Fish oil (omega 3) Glucosamine/chondroitin topical-diclofenac gel Tylenol up to 3000 mg per day pallindromic rheumatism--plaquenil/hydroxychlorquine- arthritis.org documented in this encounter Progress Notes Nona Sams DO - 05/25/2015 1:59 PM EDT HPI: Pt presents for follow up. He notes was hospitalized in [facility] for a CVA. He had MRI/ekg/echo and everything was negative. He notes the whole left side was numb. The numnbess initially lasted a few minutes then it went away and came back again. He was kept overnight in the hospital and it recurred while he was in the hospital and He had another MRI, and everything was clear. He saw a neurologist and he is seeing her again at the end of the month. He feels his gout int he left great toe has been acting up. He is still having other joint pains as well, primarily his ankles. He notes some migrating pains in his joints. He is afraid to go outside or do anything as he concerned about injury. He is worried about hurting something. He gets some pain in his muscles as well, around the biceps and leg cramps. He is back on the colhicine and allopurinol 300 mg and he is surprised his toe is still hurting. He feels the pain is sudden in onset, but no sig swelling of the joint. He feels he cannot get on the bike or treadmill with pain. He is taking the colchicine regularly d/t kidney function. He is taking asa 325 mg butnothing for pain. Background hx: Mohit Dotson is a 55 [...] negative. He was sent to podiatry in [place] and rec rheumatology as his xrays of [...] He has had crystal proven gout at [facility] He also has pain in his knees (feels his knees will give out), feels ankles with give out The joint pain started 2 years ago when he tried to go snowshoeing, it started in his ankles swelling, and the shoudlers, wrists, eblows, low back. He notes he has some aching in the am feels like he ran a marathon at [facility] the day he is in pain. He [...] X intermittent 36. Raynaud's Neuropsychiatric 37. Paresthesia X left side w recent ?cva 38. Dysesthesia 39. Dizziness/vertigo 40. Anxiety 41. Depression 42. Cognitive problems none 43. Initial insomnia x 44. Night awakenings X urinary symptoms 45. Nonrestorative sleep denies Dermatologic 46. Xerosis cutis 47. Photosensitivity 48. Rash PMHX htn hpl Gout ckd arthralgias Osteoarthritis hands/feet Recent CVA? Vs TIA Left sided n/t Mri wnl Physical Examination: BP 139/81 mmHg Pulse 52 Temp(Src) 36.5 ??C (97.7 ??F) (Oral) Ht 177.8 cm (5' 10) Wt 95.528 kg (210 lb 9.6 oz) BMI 30.22 kg/m2 SpO2 99% General: Alert and oriented. Well developed and [...] NML Hips: NML Knees: NML Ankles: NML, though notes he occ has pain in them Feet: Left foot first mtp w bony [...] nl Creatinine 1.5 Uric acid 5.1 Studies: Impression/Recommendations : Mohit Dotson is a 55 y.o. male who presents today with bl ankle, knee and shoulder pain as well as occ mcp and pip pain and lumbago. On exam today he has no pain or swelling, he does note intermittnet swelling of the knees and ankles , and his first mtp on the left. His inflamm markers were normaland his most recent uric acid was 5.5. OA: pt does have osteoarhtritis of the pips cmc and great toe on exam and radiographically, he can start fish oil (omega 3) and glucosamine and chondroitin. Also discussed possibility of voltaren gel to help with pain control, avoiding oral nsaids given recent possible TIA/CVA. Intermittent ankle/knee and shoulder pain: still unclear dx, he has no swelling or warmth or ttp on examination today. Labs provided for him to complete during a flare to see if his inflamm markers rise. He unfortunately can only use colchicine on a limited basis givne his renal function and will preserve this for gout flares, which this phelan snot seem like as the symtpoms are short in duratin and hisuric acid is at goal. Other considerations could be palindromic rheumatism (would consider hcq for therpay), poss celiac disease (no consistent rashes or gi symptoms howrever-will check iga/celiac testing). Does not seem consistent w pseudogout given short duration of flares. Could simply be osteoarthritis, though xrays did not show changes of the ankle or knees. Not consistent with RA (no small jont involvement), considered psoriatic-but has no other findigns consistent with . For now can use tylenol up to 3000 mg per day. Also discussed possibility of a centralized pain syndrome, but he lacks the cognitive dysfunciton, poor sleep and diffuse pain that typically characterizes these diseases. Seroneg spondy: no psoriasis, no IBD sympotms, no sig low back or sij symptoms suggestive Fu in 3 months or soone rwith flare CC: ANNI NICHOLAS MD documented in this encounter Plan of Treatment Not on filedocumented as of this encounter Results XR Feet Bilateral Minimum [...] of osteoarthritis and gout. Nona Sams DO Fern DX ORDERABLES documented in this encounter Visit Diagnoses Diagnosis Arthritis of first MTP joint Osteoarthrosis, unspecified whether gene ralized or localized, ankle and foot Fatigue, unspecified type Arthritis Arthropathy, unspecified, site unspecifi ed Arthritis of first MTP joint Osteoarthrosis, unspecified whether gene ralized or localized, ankle and foot Fatigue, unspecified type Arthritis Arthropathy, unspecified, site unspecifi ed documented in this encounter Care Teams Bow Making Machine Operator Relationship Specialty Start Date End Date Anni Nicholas MD PCP - General General Internal Medicine 04/05/15 documented as of this encounter
--- OUTSIDE RECORDS SUMMARY | 2021-08-29 11:49 | XMS_ITS | Encounter Summary ---
:1960 Author Organization [facility] Address [address] [place] [address] Care Team Providers Name Role Phone Unknown, Provider Primary Care Provider Encounter Details Date Type Department Care Team Description 08/29/2016 Results Only [facility] Ronnie Hernandez, DO [address] [facility] [address] [place], [place] [id number] (Wo rk) Social History Tobacco Use Types Packs/Day Years Used Date Never Assessed Sex Assigned at Date Recorded Not on file documented as of this encounter Plan of Treatment Not on filedocumented as of this encounter Procedures Procedure Name Priority Date/Time Associated Diagnosis Comme [facility] SURGICAL PATHOLOGY Routine 08/29/2016 18:23 Resul ts for this EDT procedure are i n the results section. documented in this encounter Results SURGICAL PATHOLOGY (08/29/2016 18:23 EDT) Pathology Report: SURGICAL PATHOLOGY REPORT [facility] Reports generated via electronic interface contain maritza ginal data; LABORATORY however they are lacking the format of the original re port. SERVICES Caution should be taken when reading/interpreting unfo rmatted reports. Name: ? ZARA AGUIRRE Y ? Accession #: ? [id number] ? : ? 1960 (Age: 56) ??M ? Collect Date: ? 08/29/2016 ? Location: ? [facility] ? Receive Date: ? 08/30/19 17 ? Provider: RONNIE HERNANDEZ DO Copy to: ANNI COLE MD ? Final Pathologic Diagnosis: A. COLON, CECUM POLYP, BIOPSY: - ??Tubular adenoma. B. COLON, SIGMOID POLYP, BIOPSY: - ??Colonic mucosa with reactive lymphoid aggregate. Document reviewed and electronically signed by: DAHIANA OLIVIER MD Report ??Date: 08/30/2016 16:50 By the signature above, the attending physician certif ies that he/she has personally conducted a gross and/or microscopic examin ation of the described specimens and rendered or confirmed the above diagnosi s. Specimen(s) Received: A. ??Cecal polyp B. ??Sigmoid bxs Clinical History: Screening/diverticulitis Gross Description: A. ?Received in formalin labelled with proper p atient identification (initials R, J) and cecal p olyp are three fragments of figueroa-pink tissue ranging from 0.3-0.4 cm dimension. The specimens are submitted entirely in A1. B. ?Received in formalin labelled with proper p atient identification (initials R, J) and sigmoid biopsies are two fragmen ts of figueroa-pink tissue measuring 0.3 cm and 0.5 cm in greatest dimension. The specimens are submitted entirely in B1. SUNI Horton (ASCP) 08/30/2016 8:11 AM End of Report Specimen Performing Organization Address City/State/ZIP Code Phon e Number [facility] [address] [place] [address] SERVICES documented in this encounter Visit Diagnoses Not on filedocumented in this encounter Care Teams Etcher Photoengraving Relationship Specialty Start Date End Date Unknown, Provider, PCP - General 05/10/15 documented as of this encounter
--- OUTSIDE RECORDS SUMMARY | 2021-08-29 11:49 | XMS_ITS | Encounter Summary ---
:[address] [facility] Address [address] [place] [address] Care Team Providers Name Role Phone Unknown, Provider Primary Care Provider Encounter Details Date Type Department Care Team Description 08/29/2016 Hospital Encounter [facility] Unknown, Provider, [facility] [address] [place] [address] [place] [address] (Work) [phone] Social History Tobacco Use Types Packs/Day Years Used Date Never Assessed Sex Assigned at Date Recorded Not on file documented as of this encounter Discharge Disposition Disposition Code Departure Means Destination Home or Self Shelter documented in this encounter Plan of Treatment Not on filedocumented as of this encounter Visit Diagnoses Not on filedocumented in this encounter Care Teams Accounting Officer Relationship Specialty Start Date End Date Unknown, Provider, PCP - General 05/10/15 documented as of this encounter
[2021-08-29 14:43] VITALS: BP 160/89; PULSE 60; RESP 18; TEMP 37.3; O2SAT 97
[2021-08-29 16:14] VITALS: BP 157/93; PULSE 66; RESP 18; TEMP 37.1; O2SAT 96
[2021-08-29 16:32] VITALS: RESP 18
--- NOTE | 2021-08-29 16:42 | ED.GENADUL_ITS ---
Discharge Plan Disposition Patient Disposition: HOME Condition: Stable Discharge Details Clinical Impression: Infection of skin of finger Primary Care Provider: Parker Dang ED Provider: Luis A Murphy Home Meds and New Rx's Prescriptions: No Action (DME) arm brace [Wrist Support Large-XLarge] 1 EACH misc 1 ea Miscellaneous HS Qty: 1 Rx Instructions: Left carpal tunnel splint. Wear at night. atorvastatin [Lipitor] 40 MG tablet 40 mg PO QPM Qty: 90 allopurinol 300 MG tablet 300 mg PO DAILY atenolol 50 MG tablet 50 mg PO DAILY allopurinol 100 MG tablet 1 tab PO DAILY Label Comments: 08/29/16 pt states he takes 1 300mg tab and 1 100mg tab daily at 12 noon ergocalciferol (vitamin D2) [Vitamin D2] 50,000 UNITS capsule 1 cap PO DIRECTED valacyclovir 1,000 MG tablet 1,000 mg PO TID Qty: 21 0RF cephalexin 500 mg capsule 500 mg PO QID 7 Days Qty: 28 0RF Discharge Instructions Additional Instructions: Continue to monitor for any worsening signs of infection return immediately if this occurs. Please continue to take your cephalexin for the full 7 days. If in the next 72 hours you see no improvement please contact orthopedic office for arrangement of follow-up visit. If they are unable to see you please return to the emergency department for reassessment. Referrals: [facility] [Provider Group] (If not improving) Discharge Data Discharge Date/Time-TO BE ENTERED AT DEPARTURE: 08/29/21 16:52 Medical Decision Making Left index finger with signs of puncture. Discussed with patient risk versus benefit of exploratory incision which patient was agreement to. Area was prepped in the typical sterile fashion, anesthetized with 1% lidocaine and 1 cc injected locally, 11 blade was used to incise a 6 mm incision into the puncture wound and no obvious foreign object could be found. I feel this is highly likely due to the duration of a wooden foreign object in place. Patient was encouraged to continue to take his antibiotics and return for any new or worsening symptoms. Patient was also informed that if he does not have any improvement of symptoms he may need follow-up with orthopedist for more exploratory procedure that is out of the scope of the emergency department. After discussion of diagnosis and plan of care patient has no further needs, questions, or concerns and states clear understanding to return to the emergency department for any worsening symptoms. This documentation was generated using BOLD Guid[employer] dictation system, please disregard any oddities of phrase or misspellings. HPI General Mode of arrival: ambulatory . Date/Time Provider Initiated Documentation: 08/29/21 15:14 . Limitations to Documentation: no limitations . Information obtained by: patient and RN notes reviewed . History of Present Illness 61 year old M presents to the emergency department with the chief complaint of Left index finger puncture wound, described as moderate, with i ntensity rated at 6. Quality is described as aching, and is localized to the left and upper extremity. Patient distal. Patient started experiencing this week(s) (2) and it has been constant. No relieving factors improve symptom(s), No exacerbating factors reported . Patient notes no other symptoms.. Patient did receive the following treatments prior to arrival, other (He was placed on antibiotics) Related Data Home Medications Medication Instructions Recorded Confirmed allopurinol 300 mg tablet 300 mg PO DAILY 05/10/15 08/29/21 atenolol 50 mg tablet 50 mg PO DAILY 05/10/15 08/29/21 arm brace (Wrist Support #1 ea 06/13/15 Large-XLarge) atorvastatin 40 mg tablet (Lipitor) 40 mg PO QPM #90 tabs 03/07/16 08/29/21 allopurinol 100 mg tablet 1 tab PO DAILY 08/29/16 08/29/21 ergocalciferol (vitamin D2) 1,250 1 cap PO DIRECTED 08/29/16 08/29/21 mcg (50,000 unit) capsule (Vitamin D2) valacyclovir 1 gram tablet 1,000 mg PO TID ##21 10/16/17 08/29/21 cephalexin 500 mg capsule 500 mg PO QID 7 days #28 caps 08/27/21 08/29/21 Previous Rx's Medication Instructions Recorded valacyclovir 1 gram tablet 1,000 mg PO TID ##10/16/17 cephalexin 500 mg capsule 500 mg PO QID 7 days #28 caps 08/27/21 Allergies Allergy/AdvReac Type Severity Reaction Status Date / Time No Known Allergies Allergy Unverified 08/27/21 12:34 General Stated Complaint: GenMedical MIKE: 5 Review of Systems Narrative: 6 systems reviewed and unremarkable except what is marked below. Musculoskeletal Musculoskeletal: Reports tingling (To the end of left index finger) Integumentary/Breasts Skin/Breast: Reports as per HPI, Reports erythema and Reports skin swelling Neurologic Neurologic: Reports tingling (To the end of left index finger) PFSH All Active Problems (Updated 08/29/21 @ 16:44 by Luis A Murphy NP) Infection of skin of finger (Acute) Medical History (Updated 08/29/21 @ 16:44 by Luis A Murphy NP) CVA (cerebral vascular accident) HTN (hypertension) Hx of hyperlipidemia Surgical History (Updated 09/27/16 @ 12:00 by Lyric Castellanos) Colonoscopy - IV Sedation (08/29/16) EGD - IV Sedation (08/29/16) Social History Smoking/Tobacco Use Status: Never Smoking risk assessment performed?: Yes Alcohol Intake: current Alcohol Intake frequency: 0-2 drinks per day Alcohol type: wine Drug use: Never Substance use type: does not use Do you feel safe at home: Yes Do you feel safe in your relationship?: Yes Exam Const General: cooperative, no acute distress and not ill appearing Orientation: alert, awake and oriented x3 Resp Effort & Inspection: normal respiratory effort, able to speak in complete sentences and no respiratory distress Cardio Rate: regular rate Rhythm: regular rhythm Skin General skin exam: no rashes or lesions noted Neuro General: patient alert, patient awake, patient oriented x3, moves all extremities and no focal motor deficits Sensory Exam: no sensory deficits noted Extrem General: normal exam except as noted Left upper extremity: hand Details: normal capillary refill, neuromotor exam normal, neurosensory exam normal, tenderness Location: of the 2nd digit Location: at the middle phalanx and at the distal phalanx, swelling Location: of the 2nd digit Location: at the middle phalanx and at the distal phalanx and puncture wound Hand/finger images: 1. Puncture wound Course Vital Signs Vital signs: Vital Signs Temperature 37.3 C 08/29/21 14:43 Pulse 60 08/29/21 14:43 Respiratory Rate 18 08/29/21 14:43 Blood Pressure 160/89 H 08/29/21 14:43 Pulse Oximetry 97 08/29/21 14:43 Temperature 37.1 C 08/29/21 16:14 Temperature Source Oral 08/29/21 16:14 Pulse 66 07/12/22 16:14 Respiratory Rate 18 08/29/21 16:32 Respiratory Effort Non-Labored 08/29/21 16:32 Respiratory Depth Normal 08/29/21 16:32 Respiratory Pattern Normal 08/29/21 16:32 Blood Pressure 157/93 H 08/29/21 16:14 Blood Pressure Position Sitting 08/29/21 14:43 Pulse Oximetry 96 08/29/21 16:14 Oxygen Delivery Method Room Air 08/29/21 14:43 Oxygen Flow Rate 0 08/29/21 14:43 Pain Level 6 08/29/21 16:14 PAWSS Have you Been Recently Intoxicated or Drunk Within the Last 30 days?: No Have you Ever Experienced Previous Episodes of Alcohol Withdrawal?: No Have you ever Experienced Withdrawal Seizures?: No Have you ever Experienced Delirium Tremens(DT)s?: No Have you ever undergone Alcohol Rehabilitation Treatment (i.e, inpt ot outpatient treatment programs)?: No Have you ever Experienced Blackouts?: No Have you ever Combined Alcohol with other Downers within the last 90 days?: No Have you ever Combined Alcohol with any other Substance of Abuse during the last 90 days?: No Positive Blood Alcohol level on Presentation? [PCS.BAL]: No Evidence of Increased Autonomic Activity (i.e. HR>120, tremor, sweating, agitation, nausea)?: No Result: 0
== END 2021-08-29 16:52 | disposition home or self-care (01) ==
PROVIDERS: Emergency Provider Nurse Practitioner Family; PCP Internal Medicine
DX: S61.231A Puncture wound without foreign body of left index finger without damage to nail, initial encounter (principal); L08.9 Local infection of the skin and subcutaneous tissue, unspecified; I10 Essential (primary) hypertension; Z86.73 Personal history of transient ischemic attack (TIA), and cerebral infarction without residual deficits; X58.XXXA Exposure to other specified factors, initial encounter
CPT/HCPCS: 10120; 99283; 99282

== ENCOUNTER → 2021-09-20 12:13 | Outpatient (CLI) | payer MEDICAID, SELFPAY ==
--- NOTE | 2021-09-20 12:09 | DI.RAD_ITS ---
Exam(s) XR FINGER RT LITTLE EXAM: XR FINGER RT LITTLE CLINICAL HISTORY: tender right little finger, finger deformity, M20.009, ? fracture. TECHNIQUE: 2D digital imaging was performed. Three views. COMPARISON: CR,XR XR FINGER LT INDEX from 08/27/2021 FINDINGS: BONES: There is a fracture seen extending obliquely through the proximal phalanx of the little finger . Minimal displacement. No angulation. No additional fractures.. No bony destructive lesion is se en. JOINTS: No dislocation present. Minimal degenerative changes. SOFT TISSUE: Normal. IMPRESSION: Fracture of the proximal phalanx of the little finger. DATA REPOSITORY: RADIATION DOSE DELIVERED:
== END ==
PROVIDERS: PCP Internal Medicine; Visit Provider Surgery
DX: S62.616A Displaced fracture of proximal phalanx of right little finger, initial encounter for closed fracture (principal); X58.XXXA Exposure to other specified factors, initial encounter
CPT/HCPCS: 73140

== ENCOUNTER 2021-10-05 11:42 | Outpatient (CLI) | payer MEDICAID, SELFPAY ==
--- NOTE | 2021-10-05 11:15 | DI.RAD_ITS ---
Exam(s) XR FINGER RT LITTLE EXAM: XR FINGER RT LITTLE CLINICAL HISTORY: follow up. TECHNIQUE: 2D digital imaging was performed. Three views. COMPARISON: CR XR FINGER RT LITTLE from 09/20/2021 FINDINGS: BONES: Stable alignment of the fracture of the proximal phalanx of the little finger. No new fractur e is present. No bony destructive lesion is seen. JOINTS: No dislocation present. SOFT TISSUE: Normal. IMPRESSION: Healing fracture proximal phalanx of the little finger. DATA REPOSITORY: RADIATION DOSE DELIVERED:
== END 2021-10-05 11:43 | disposition home or self-care (01) ==
LOC: DIORS 11:42
PROVIDERS: PCP Internal Medicine; Referring Provider Internal Medicine; Visit Provider Physician Assistant Surgical
DX: S62.616D Displaced fracture of proximal phalanx of right little finger, subsequent encounter for fracture with routine healing (principal); X58.XXXD Exposure to other specified factors, subsequent encounter
CPT/HCPCS: 73140

== ENCOUNTER 2021-11-02 14:56 | Outpatient (CLI) | payer MEDICAID, SELFPAY ==
--- NOTE | 2021-11-02 11:15 | DI.RAD_ITS ---
Exam(s) XR FINGER RT LITTLE EXAM: XR FINGER RT LITTLE CLINICAL HISTORY: continued pain. TECHNIQUE: 2D digital imaging was performed of the right finger. Three views were obtained. PA/AP, oblique, and lateral views were obtained. COMPARISON: CR XR FINGER RT LITTLE from 10/05/2021 FINDINGS: BONES: There has been no change in alignment of the fracture involving the proximal phalanx of the ri ght little finger. No bony destructive lesion is seen. JOINTS: No dislocation present. SOFT TISSUE: There is soft tissue swelling of the little finger. IMPRESSION: Stable fracture involving the proximal phalanx of the right little finger. DATA REPOSITORY: RADIATION DOSE DELIVERED:
== END 2021-11-02 14:57 | disposition home or self-care (01) ==
LOC: DIORS 14:56
PROVIDERS: PCP Internal Medicine; Referring Provider Internal Medicine; Visit Provider Physician Assistant Surgical
DX: S62.616D Displaced fracture of proximal phalanx of right little finger, subsequent encounter for fracture with routine healing (principal); X58.XXXD Exposure to other specified factors, subsequent encounter
CPT/HCPCS: 73140

== ENCOUNTER → 2022-01-03 08:45 | Outpatient (CLI) | payer MEDICAID, SELFPAY ==
--- NOTE | 2022-01-03 08:15 | DI.RAD_ITS ---
Exam(s) XR FINGER RT LITTLE EXAM: XR FINGER RT LITTLE CLINICAL HISTORY: f/u RLF frx, finger fx rt, S62.794L. TECHNIQUE: 2D digital imaging was performed. Three views. COMPARISON: CR XR FINGER RT LITTLE from 11/02/2021 FINDINGS: There has been no change in the alignment of the fracture of the proximal phalanx of the 5th finger. No new abnormalities. . DATA REPOSITORY: RADIATION DOSE DELIVERED:
== END ==
PROVIDERS: PCP Internal Medicine; Visit Provider Student in an Organized Health Care Education/Training Program
DX: S62.616D Displaced fracture of proximal phalanx of right little finger, subsequent encounter for fracture with routine healing (principal); X58.XXXD Exposure to other specified factors, subsequent encounter
CPT/HCPCS: 73140

== ENCOUNTER → 2022-01-16 02:52 | Outpatient (CLI) | payer MEDICAID, SELFPAY ==
--- NOTE | 2022-01-16 | DI.MRI_ITS ---
Exam(s) MR UPPER EXTREMITY RT WO EXAM: MR UPPER EXTREMITY RT WO CLINICAL HISTORY: FINGER PAIN, RT HAND, M79.644,H/O 5TH FINGER FX,? TENDINITIS OR SYNOVITIS TECHNIQUE: Multiplanar multisequence MRI was performed without intravenous contrast. COMPARISON: CR XR FINGER RT LITTLE from 01/03/2022 FINDINGS: BONES/JOINTS: There has been no change in alignment of the known fracture involving the proximal phal anx of the 5th finger. There is mild marrow edema seen in the bone. No new fracture is seen. No mary ne lesions identified. MUSCULOTENDINOUS STRUCTURES: The muscles show normal signal and size. No muscular fatty atrophy. SOFT TISSUES: The radial collateral ligament at the PIP joint has a wavy contour and its proximal att achment appears absent. This may represent a tear. There does appear to be some swelling and disorg anization of the soft tissues radially. No masses identified. No focal fluid collection is seen. OTHER FINDINGS: None. IMPRESSION: 1. Fracture involving the proximal phalanx of the little finger. 2. Findings suspicious for tear at the proximal attachment of the radial collateral ligament at the P IP joint of the little finger. DATA REPOSITORY:
== END ==
PROVIDERS: PCP Internal Medicine; Visit Provider Internal Medicine
DX: S62.616A Displaced fracture of proximal phalanx of right little finger, initial encounter for closed fracture (principal); X58.XXXA Exposure to other specified factors, initial encounter
CPT/HCPCS: 73218

== ENCOUNTER 2022-04-09 12:32 | Outpatient (CLI) | payer MEDICAID, SELFPAY ==
[2022-04-09 09:09] LABS: Hemoglobin A1C 5.3 % (<5.7)
[2022-04-10 13:58] LABS: Albumin 61.7 % (55.8-66.1); Albumin g/dL 4.3 g/dL (3.6-5.2)
[2022-04-10 14:53] LABS: Albumin, Urine % 81.2 %; Albumin, Urine mg/dL 192 mg/dL; Globulins, Urine % 18.8 %; Globulins, Urine mg/dL 45 mg/dL; Immunotyping, Urine (See Note); Total Protein Urine 237 mg/dL (See Note)
== END 2022-04-09 12:33 | disposition home or self-care (01) ==
LOC: LBO 12:33
PROVIDERS: PCP Internal Medicine; Visit Provider Student in an Organized Health Care Education/Training Program
DX: R80.9 Proteinuria, unspecified (principal); Z86.39 Personal history of other endocrine, nutritional and metabolic disease
CPT/HCPCS: 36415; 82306; 84156; 84166; 86335; 83036; 84165

== ENCOUNTER 2022-04-16 14:28 | Outpatient (REF) | payer MEDICAID, SELFPAY ==
[2022-04-16 16:34] LABS: TOTAL PROTEIN,URINE TIMED 2047.5 mg/24hr (0.0-149.1); Total Volume 4550 ml
== END 2022-04-16 14:29 | disposition home or self-care (01) ==
LOC: LBN 14:28
PROVIDERS: PCP Internal Medicine; Visit Provider Student in an Organized Health Care Education/Training Program
DX: R80.9 Proteinuria, unspecified (principal)
CPT/HCPCS: 81050; 84155

== ENCOUNTER 2022-04-30 02:05 | Outpatient (CLI) | payer MEDICAID, SELFPAY ==
--- NOTE | 2022-04-30 14:30 | DI.CT_ITS ---
Exam(s) CT ABDOMEN PELVIS WO EXAM: CT ABDOMEN PELVIS WO CLINICAL HISTORY: NEPHROTIC SYNDROME, N04.9; CHRONIC ABD PAIN, 10.9, G89.29. TECHNIQUE: Imaging Protocol: Axial computed tomography images with coronal and sagittal reformatted images were created and reviewed. COMPARISON: CT RENAL COLIC WO CONTRAST from 07/01/2016 FINDINGS: ABDOMEN: Lung Bases: Normal where visualized. Liver: Normal density. There is a stable round 6 mm hypodense nodule in the caudal aspect of the righ t lobe of the liver. No follow-up is recommended. Gallbladder and biliary tract: No radiodense calculus or biliary ductal dilation. Pancreas: Normal density, no abnormal calcifications or inflammatory process. Spleen: Normal. Kidneys: Normal size, contour and axis.No radiodense stones or obstructive uropathy. No masses seen. Adrenal glands: No mass is seen. Lymph nodes: Within normal limits. Abdominal Aorta: Abdominal portion non-dilated. Atherosclerosis. PELVIS: Bladder:Symmetric distention, no gross wall thickening. Bowel: There is diverticulosis of the colon but no evidence of acute diverticulitis. There is no ciara dence of bowel obstruction. No bowel wall thickening is seen. Appendix is unremarkable. Peritoneal cavity: No ascites, collection or mesenteric inflammatory response. No free air. Reproductive organs: Unremarkable as visualized. Bones: Within normal limits. Soft Tissues: Within normal limits. IMPRESSION: No acute abdominal or pelvic process. RADIATION DOSE DELIVERED: 880.54mGy.cm Total DLP DATA REPOSITORY: All CT scans at this facility are submitted to the National Radiology Data Registry (NRDR) Dose Index Registry (DIR) with the [employer] (A[employer]). RADIATION OPTIMIZATION: All CT scans at this facility use at least one of these dose optimization te chniques: automated exposure control; mA and/or kV adjustment per patient size (includes targeted exa ms where dose is matched to clinical indication); or iterative reconstruction.
== END 2022-04-30 02:25 ==
LOC: DI 02:06
PROVIDERS: PCP Internal Medicine; Visit Provider Internal Medicine
DX: N04.9 Nephrotic syndrome with unspecified morphologic changes (principal); G89.29 Other chronic pain; R10.9 Unspecified abdominal pain; K76.89 Other specified diseases of liver
CPT/HCPCS: 74176

== ENCOUNTER 2022-05-04 07:24 | Day surgery (SDC) | payer MEDICAID, SELFPAY ==
--- NOTE | 2022-05-03 13:40 | W.ANESPRE ---
General Info Date of Service Date Performed: 05/04/22 Height: 5 ft 8 in Weight: 93.894 kg Body Mass Index (BMI): 31.4 Surgical Procedure: Operation Date: 05/04/22 09:05 Proposed Procedure Side Surgeon p Mali Britton MD Meds Allergies and Home Medications Allergies Allergy/AdvReac Type Severity Reaction Status Date / Time No Known Allergies Allergy Verified 05/04/22 07:37 Home Medication Medication Instructions Recorded allopurinol 300 mg tablet 300 mg PO DAILY 05/10/15 atenolol 50 mg tablet 50 mg PO DAILY 05/10/15 arm brace (Wrist Support #1 ea 06/13/15 Large-XLarge) atorvastatin 40 mg tablet (Lipitor) 40 mg PO QPM #90 tabs 03/07/16 aspirin 81 mg tablet,delayed 81 mg PO DAILY 09/20/21 release (Adult Aspirin Regimen) ergocalciferol (vitamin D2) 50 mcg 50 mcg PO DAILY 04/24/22 (2,000 unit) capsule finasteride 5 mg tablet 5 mg PO DAILY 04/24/22 sildenafil 50 mg tablet 50 mg PO DAILY PRN 04/24/22 methylsulfonylmethane 1,000 mg 1,000 mg PO BID 04/25/22 tablet (MSM) Current Visit Medications: Current Medications Generic Name Dose Route Start Last Admin Trade Name Freq PRN Reason Stop Dose Admin Ringer's Solution 1,000 mls @ 80 mls/hr 05/04/22 06:00 IV 05/04/22 16:00 INFUSION KIERAN IV Miscellaneous Supplies 1 each 05/04/22 06:00 Iv Access IV 05/04/22 16:00 DIRECTED KIERAN Sodium Chloride 0 ml 05/04/22 06:00 Normal Saline Flush 10 Ml Syr IV 05/04/22 16:00 PRN PRN Sodium Chloride 0 ml 05/04/22 06:00 Normal Saline 10 Ml Vial IJ 05/04/22 16:00 DIRECTED PRN Sterile Water 0 ml 05/04/22 06:00 Water,Injection,Sterile 10 Ml Vial IJ 05/04/22 16:00 DIRECTED PRN PFSH Active Problems Active Problems: Problem Status Onset Code Finger deformity M20.009 Tubular adenoma of colon 08/29/16 D12.6 BPH (benign prostatic hyperplasia) N40.0 Aortic ectasia I77.819 CKD (chronic kidney disease) N18.9 Foreign body (FB) in soft tissue M79.5 Finger fracture, right S62.601N Screening for colon cancer Z12.11 Diverticulosis K57.90 Erectile dysfunction N52.9 Abdominal pain R10.9 Medical History Medical History Ankle pain CVA (cerebral vascular accident) Per pt. states it was related to his gout, when his PCP increased allopurinol caused a little disturbance- 2016 Pt. stated he had a full work up, stated it wasn't a stroke from blockage, but it was gout crystals floating around, and things disppeared and cleared up, and so I dodged a bullet on that one. Gout HTN (hypertension) Hx of hyperlipidemia Infection of skin of finger Lower urinary tract symptoms (LUTS) Traumatic amputation of multiple fingers Surgical History Surgical History Colonoscopy - IV Sedation (08/29/16) EGD - IV Sedation (08/29/16) Tobacco Smoking/Tobacco Use Status: Never Alcohol Alcohol Intake: current Alcohol intake frequency: 0-2 drinks per day Alcohol type: wine Substance Use Substance use: Never Substance use type: does not use Vital Signs and Lab Results Vital Signs Most Recent Vital Signs in EMR: Temp Pulse Resp BP Pulse Ox 36.4 C L 85 16 152/98 H 98 05/04/22 07:41 05/04/22 07:41 05/04/22 07:41 05/04/22 07:41 05/04/22 07:41 Lab Results Blood Type / Crossmatch: No Data to Display Complete Blood Count: No Data to Display Complete Metabolic Panel: Hemoglobin A1c 5.3 % (<5.7) 04/09/22 08:33 Liver Function Panel: No Data to Display Coagulation Panel: No Data to Display Cardiac Panel: No Data to Display Arterial Blood Gas: No Data to Display Venous Blood Gas: No Data to Display Pancreas Panel: No Data to Display Thyroid Panel: No Data to Display Infectious Disease: No Data to Display Blood Cultures: No Data to Display Toxicology Panel: No Data to Display Imaging and Studies Imaging and Studies Study information below may be from another EMR and interpreted by another provider. Please see original notes in EMR for more complete details. Echocardiogram Summary: 05/03: LVEF 60-65%, mild AR. Carotid Artery Summary:: 05/03: WNL. Anesthesia Assessment and Plan Anesthesia History Personal History: No History of Anesthesia Complications Family History: No Family History of Anesthesia Complications Exercise Tolerance Exercise Tolerance: Metabolic Equivalents>4 Cardiac & Pulmonary Exam Cardiac Exam: Normal S1/S2 Heart Sounds Pulmonary Exam: Clear Bilateral Breath Sounds Implantable Cardiac Device Does patient have a Pacemaker or an ICD?: No Airway Exam Known Difficult Airway: No Mallampati Class: 3 Mouth Opening: Normal (> 3cm) Thyromental Distance: Greater than 3 cm Neck Range of Motion: Full ROM Neck Circumference: Normal Teeth Condition: Normal Dentition ASA Classification ASA Score: ASA 3 Emergency Case?: No NPO Status NPO Status: NPO Clears >2 hours, Solids >8 hours Anesthesia Plan Resuscitation Status: Full Code Anesthesia Technique: General Anesthesia Airway Planned: Natural Airway Monitors Used: Standard Monitors Preoperative Comments:: 62 yo male for colo. Sig PMHx: aortic ectasia, CKD (last GFR 50) TIA/CVA (2016, r/t allopurinol/gout), HTN (atenolol), never smoker, occ EtOH.
--- NOTE | 2022-05-03 21:11 | PDOC.DSDIS_ITS ---
Date of service: 05/04/22 Time of Service: 09:32 Discharge Plan Disposition Patient Disposition: Home Condition: Good Discharge Details Reason For Visit: Colonoscopy Attending Provider: Chicho Britton Primary Care Provider: Parker Dang Home Meds and New Rx's Prescriptions: Continued methylsulfonylmethane [MSM] 1,000 mg tablet 1,000 mg PO BID (DME) Wrist Support Large-XLarge 1 EACH misc 1 ea Miscellaneous HS Qty: 1 Rx Instructions: Left carpal tunnel splint. Wear at night. atorvastatin [Lipitor] 40 MG tablet 40 mg PO QPM Qty: 90 aspirin [Adult Aspirin Regimen] 81 mg tablet,delayed release (DR/EC) 81 mg PO DAILY ergocalciferol (vitamin D2) 50 mcg (2,000 unit) capsule 50 mcg PO DAILY finasteride 5 mg tablet 5 mg PO DAILY sildenafil 50 mg tablet 50 mg PO DAILY PRN Rx Instructions: administer 30 minutes to 4 hours before activity allopurinol 300 MG tablet 300 mg PO DAILY atenolol 50 MG tablet 50 mg PO DAILY Discontinued polyethylene glycol 3350 17 gram/dose powder 238 g PO ONCE Qty: 238 0RF Rx Instructions: take per colonoscopy instructions bisacodyl [Dulcolax (bisacodyl)] 5 mg tablet,delayed release (DR/EC) 5 mg PO ONCE Qty: 4 0RF Rx Instructions: take per colonoscopy instructions Discharge Instructions Instructions: Diverticulosis (GEN) Additional Instructions: Vladimir, we were able to complete your colonoscopy without any difficulty today. T he quality of your preparation was excellent. I did not see any polyps or tumors. You do have some very mild diverticulosis. This is just some weak spots in the colon wall that most patients accumulate with age. I have attached a little bit of information here regarding diverticulosis. The general principles of managing it regards having a balanced diet that is rich in dietary fibers. Based on our previous conversations, I suspect you are already well ahead of it. Based on your last colonoscopy, and the findings today, the recommendation is to have another colonoscopy when you turn 72. 1. If tolerated, consume a soft, low fiber diet for 1-2 days. 2[address] Do not drive, drink alcohol, operate machinery, make critical decisions, or do activities that require coordination or balance for 24 hours. 3. Because air was put into your colon during the procedure, expelling air from your rectum (passing gas or farting) is normal. 4. You may not have a bowel movement for 1-3 days because of the colonoscopy prep. This is normal. 5. Go directly to the emergency room if you notice any of the following: Develop chills (warm to touch), or if you have a thermometer and your temperature is above 101 Difficulty breathing or difficultly swallowing Persistent vomiting Severe abdominal pain, other than gas cramps Severe chest pain Black, tarry stools Any bleeding ? exceeding one tablespoon 6. Call your physician if the site where your intravenous was started becomes red, swollen, painful, and warm to touch. 7. Your physician has reviewed your pre-procedure medications. Please continue to take those medications as previously ordered. You will be given specific information/education regarding any changes to your medications before leaving. Activity:: Activity as Tolerated Diet:: As Tolerated Discharge Orders Discharge Orders: Discharge Order (Routine); Ordered 05/03/22 Ordered By: Chicho Britton DS: Diagnosis Discharge Diagnosis (1) Screening for colon cancer: Status: Acute Asessment and Plan: Normal colonoscopy. Follow-up in 10 years
--- NOTE | 2022-05-03 21:12 | W.COLOREPORT ---
Date of service: 05/04/22 Time of Service: 09:35 Colonoscopy Report Date of procedure: 05/04/22 Pre-op diagnosis general: Screening colonoscopy Post-op diagnosis procedure note: other (Normal colonoscopy) Procedure: Colonoscopy Surgeon: Chicho Britton Anesthesia Type: General:No Airway Estimated blood loss (mL): 0 Pathology: none sent Complications: None Disposition: same day Indications: Mohit is here for his next screening colonoscopy Prep: Miralax/Dulcolax Procedure Start Time: 09:07 Procedure End Time: 09:22 Retraction Time: 12 Findings: Mild diverticulosis, otherwise normal colonoscopy Procedure Description: After the induction of monitored anesthetic care, and with the patient in left lateral decubitus position, I began by performing an external anorectal exam.? Perineum is normal. There are some perianal skin tags. I do not see any external hemorrhoids.? Next, I performed a digital rectal exam.? I did not appreciate any abnormal findings.? Next, I advanced a colonoscope into the rectal vault.? I performed retroflexion.? This was normal.? Using insufflation, I then advanced the colonoscope beyond the rectal folds and into the sigmoid colon before advancing towards the cecum.? The quality of the prep was excellent.? There was some rare sigmoid diverticulosis the scope was noted to be in the cecum by identification of the ileocecal valve and appendiceal orifice.? I then began withdrawing the colonoscope using repeated irrigation as necessary for full evaluation of the colonic mucosa. ?Once the scope was withdrawn to the level of the rectum, great care was taken to examine portions of the rectal folds.? Finally, the scope was withdrawn and the patient was brought to the same-day surgery recovery unit as the anesthetic wore off. ?The findings and instructions were shared with the patient prior to discharge.
[2022-05-04 07:41] VITALS: BP 152/98; PULSE 85; RESP 16; TEMP 36.4; O2SAT 98
[2022-05-04] MEDS: Lactated Ringers 1,000 ML 80 ML IV (08:03)
[2022-05-04 08:43] VITALS: BMI 31.4
[2022-05-04 09:26] VITALS: BP 126/85; PULSE 83; RESP 16; TEMP 36.4; O2SAT 98
--- NOTE | 2022-05-04 09:54 | W.ANESPOSTOP ---
Postoperative Evaluation Date, Time and Location Date Performed: 05/04/22 Time Performed: 09:54 Patient Location: Day Surgery Unit Vital Signs Most Recent Imported Vital Signs: Most Recent Vital Signs Temp Pulse Resp BP Pulse Ox 36.4 C L 83 16 126/85 98 05/04/22 09:26 05/04/22 09:26 05/04/22 09:26 05/04/22 09:26 05/04/22 09:26 Pain Score Most Recent Pain Score: Most Recent Pain Score Pain Level 0 05/04/22 09:26 Assessment Mental Status: Awake (Alert & Oriented to Patient Baseline) Airway and Respiratory Function: Patent airway with normal (patient baseline) respiratory exam Cardiovascular Function: Hemodynamically Stable Hydration Status: Adequately Hydrated Nausea & Vomiting: No Nausea or Vomiting Pain: Pt. Denies Any Pain Peripheral Nerve Block: Patient did not receive a nerve block
[2022-05-04 09:55] VITALS: BP 130/97; PULSE 72; RESP 16; TEMP 36.7; O2SAT 97
== END 2022-05-04 10:12 | disposition home or self-care (01) ==
PROVIDERS: PCP Internal Medicine; Visit Provider Surgery
PROC: 0DJD8ZZ Inspection of Lower Intestinal Tract, Via Natural or Artificial Opening Endoscopic (ICD-10-PCS; CPT 45378; principal; 2022-05-04 09:00)
DX: Z12.11 Encounter for screening for malignant neoplasm of colon (principal); K57.30 Diverticulosis of large intestine without perforation or abscess without bleeding
CPT/HCPCS: 45378

== ENCOUNTER 2022-05-23 10:48 | Outpatient (CLI) | payer MEDICAID, SELFPAY ==
[2022-05-24 09:14] LABS: C3 Complement 116 mg/dL (81-157); C4 Complement 27 mg/dL (13-39); Kappa Free Light Chain 3.19 mg/dL (0.33-1.94); Lambda Free Light Chain 1.64 mg/dL (0.57-2.63)
[2022-05-24 10:25] LABS: Hepatitis C Ab w Rflx HCV PCR Negative (Negative)
[2022-05-24 15:30] LABS: ANA Interpretation Negative (Negative)
[2022-05-25 23:39] LABS: Syphilis IgG w/Reflex Nonreactive (Nonreactive)
== END 2022-05-23 10:49 | disposition home or self-care (01) ==
LOC: LBO 10:49
PROVIDERS: PCP Internal Medicine; Visit Provider Internal Medicine
DX: R80.8 Other proteinuria (principal); Z01.84 Encounter for antibody response examination
CPT/HCPCS: 36415; 82784; 86803; 83883; 86038; 86160; 86780

== ENCOUNTER 2022-09-28 02:33 | Outpatient (CLI) | payer MEDICAID, SELFPAY ==
[2022-09-28 13:31] LABS: Abs Immature Grans 0.02 10^3/uL (0.0-0.06); Absolute Basophil Count 0.04 10^3/uL (0.0-0.2); Absolute Eosinophil Count 0.17 10^3/uL (0.0-0.7); Absolute Lymphocyte Count 1.41 10^3/uL (1.2-3.4); Absolute Monocyte Count 0.51 10^3/uL (0.1-0.8); Absolute Neutrophil Count 4.46 10^3/uL (1.2-6.7); Basophils % 0.6; Eosinophils % 2.6; HCT 40.2 % (40.0-50.0); HGB 14.1 g/dL (13.5-17.5); Immature Grans % 0.3; Lymphocytes % 21.3; MCH 31.6 pg (27.0-33.0); MCHC 35.1 % (32.0-36.0); MCV 90 fL (80-95); MPV 10.7 fL (8.0-11.0); Monocytes % 7.7; Neutrophils % 67.5; Platelet Count 189 10^3/uL (130-400); RBC 4.46 10^6/uL (4.36-5.78); RDW-SD 42.5 fL; WBC 6.61 10^3/uL (4.4-10.8)
[2022-09-28 13:42] LABS: Bilirubin Negative (Negative); Blood Negative (Negative); Clarity Clear (Clear); Glucose Negative (Negative); Ketones Negative (Negative); Leukocyte Esterase Negative (Negative); Nitrite Negative (Negative); Specific Gravity 1.015 (1.005-1.025); Urobilinogen 0.2 mg/dL (Up to 0.2)
[2022-09-28 13:50] LABS: Bacteria Negative HPF (Negative); C & S Indicated? No; Casts 0-2 Hyaline LPF (Negative); Crystals Negative HPF (Negative); Epithelial Cells Rare HPF (Negative); Mucus Negative (Negative); RBC Negative HPF (0-2); WBC Negative HPF (0-5)
[2022-09-28 13:55] LABS: COMMENT (LAB VIEW ONLY) 120.55 mg/dL; Prot/Crea Ur Ratio 0.52
[2022-09-28 13:59] LABS: ALT 23 U/L (16-63); AST 6 U/L (15-37); Albumin 4.1 g/dL (3.4-5.0); Alkaline Phosphatase 58 U/L (46-116); Anion Gap 11.3 mmol/L (3-11); BUN 27 mg/dL (7-18); Bilirubin, Total 0.6 mg/dL (0.2-1.0); CO2 24.7 mmol/L (21.0-32.0); CREATININE 1.6 mg/dL (0.70-1.30); Calcium 9.2 mg/dL (8.5-10.1); Chloride 102 mmol/L (98-107); Estimated GFR 48.11 (mL/min/1.73m2); Glucose 98 mg/dL (74-106); PHOSPHORUS 4.1 mg/dL (2.6-4.7); Potassium 4.4 mmol/L (3.5-5.1); Sodium 138 mmol/L (136-145); Total Protein 7.4 g/dL (6.4-8.2); Uric Acid 5.3 mg/dL (3.5-7.2)
[2022-10-01 09:04] LABS: HBs Antibody, Quant <3.1 mIU/mL (See Note); Hepatitis B Surface Ab Negative (See Note)
[2022-10-01 09:12] LABS: Hepatitis B Surface Ag Negative (Negative)
[2022-10-01 09:37] LABS: C3 Complement 109 mg/dL (81-157); C4 Complement 25 mg/dL (13-39); IgA 124 mg/dL (85-499); IgG 1022 mg/dL (610-1616); IgM 184 mg/dL (35-242); Kappa Free Light Chain 3.16 mg/dL (0.33-1.94); Lambda Free Light Chain 1.78 mg/dL (0.57-2.63)
[2022-10-01 09:48] LABS: Hep B Core Antibody Negative (Negative)
[2022-10-01 10:24] LABS: Hepatitis C Ab w Rflx HCV PCR Negative (Negative)
[2022-10-01 13:32] LABS: Albumin 61.8 % (55.8-66.1); Albumin g/dL 4.6 g/dL (3.6-5.2); Total Protein 7.4 g/dL (6.3-8.2)
[2022-10-01 19:25] LABS: Syphilis IgG w/Reflex Nonreactive (Nonreactive)
[2022-10-03 12:38] LABS: Phospholipase A2 Recep, ELISA <2 RU/mL
[2022-11-02 09:56] LABS: PLA2R, Immunoflurescence Negative (Negative); THSD7A Ab Negative (Negative)
== END 2022-09-28 02:34 | disposition home or self-care (01) ==
LOC: LBO 02:33
PROVIDERS: PCP Internal Medicine; Visit Provider Internal Medicine
DX: D47.2 Monoclonal gammopathy (principal); R80.8 Other proteinuria; Z01.84 Encounter for antibody response examination; N18.9 Chronic kidney disease, unspecified; Z11.59 Encounter for screening for other viral diseases
CPT/HCPCS: 36415; 80053; 82784; 83520; 86255; 86704; 86706; 86803; 87340; 81003; 81015; 82565; 83735; 83883; 84100; 84156; 84165; 84550; 85025; 86160; 86780

== ENCOUNTER 2022-12-24 01:08 | Outpatient (CLI) | payer MEDICAID, SELFPAY ==
[2022-12-24 11:18] LABS: Abs Immature Grans 0.02 10^3/uL (0.0-0.06); Absolute Basophil Count 0.03 10^3/uL (0.0-0.2); Absolute Eosinophil Count 0.25 10^3/uL (0.0-0.7); Absolute Lymphocyte Count 1.12 10^3/uL (1.2-3.4); Absolute Neutrophil Count 4.54 10^3/uL (1.2-6.7); Basophils % 0.5; Eosinophils % 3.9; HCT 41.2 % (40.0-50.0); HGB 14.1 g/dL (13.5-17.5); Immature Grans % 0.3; Lymphocytes % 17.3; MCH 31.6 pg (27.0-33.0); MCHC 34.2 % (32.0-36.0); MCV 92 fL (80-95); MPV 11.7 fL (8.0-11.0); Monocytes % 7.7; Neutrophils % 70.3; Platelet Count 200 10^3/uL (130-400); RBC 4.46 10^6/uL (4.36-5.78); RDW 13.9 % (11.8-14.1); RDW-SD 47.2 fL; WBC 6.46 10^3/uL (4.4-10.8)
[2022-12-24 11:58] LABS: ALT 37 U/L (16-63); AST 21 U/L (15-37); Albumin 3.9 g/dL (3.4-5.0); Alkaline Phosphatase 63 U/L (46-116); BUN 23 mg/dL (7-18); Bilirubin, Total 0.4 mg/dL (0.2-1.0); CREATININE 1.5 mg/dL (0.70-1.30); Calcium 9.5 mg/dL (8.5-10.1); Chloride 102 mmol/L (98-107); Estimated GFR 51.99 (mL/min/1.73m2); Glucose 110 mg/dL (74-106); Potassium 4.7 mmol/L (3.5-5.1); Sodium 137 mmol/L (136-145); Total Protein 7.7 g/dL (6.4-8.2)
[2022-12-25 09:55] LABS: IgA 135 mg/dL (85-499); IgG 1083 mg/dL (610-1616); IgM 207 mg/dL (35-242); Kappa Free Light Chain 3.42 mg/dL (0.33-1.94); Lambda Free Light Chain 1.65 mg/dL (0.57-2.63)
[2022-12-25 14:20] LABS: Albumin 60.6 % (55.8-66.1); Albumin g/dL 4.5 g/dL (3.6-5.2); Total Protein 7.4 g/dL (6.3-8.2)
== END 2022-12-24 01:09 | disposition home or self-care (01) ==
PROVIDERS: PCP Internal Medicine; Visit Provider Internal Medicine Hematology & Oncology
DX: D47.2 Monoclonal gammopathy (principal)
CPT/HCPCS: 36415; 80053; 82784; 83883; 84165; 85025

== ENCOUNTER 2023-01-11 00:51 | Outpatient (CLI) | payer MEDICAID, SELFPAY ==
[2023-01-11 12:33] LABS: Abs Immature Grans 0.02 10^3/uL (0.0-0.06); Absolute Basophil Count 0.04 10^3/uL (0.0-0.2); Absolute Eosinophil Count 0.21 10^3/uL (0.0-0.7); Absolute Lymphocyte Count 1.59 10^3/uL (1.2-3.4); Absolute Monocyte Count 0.57 10^3/uL (0.1-0.8); Absolute Neutrophil Count 4.93 10^3/uL (1.2-6.7); Basophils % 0.5; Eosinophils % 2.9; HCT 42.2 % (40.0-50.0); HGB 14.6 g/dL (13.5-17.5); Immature Grans % 0.3; Lymphocytes % 21.6; MCH 31.5 pg (27.0-33.0); MCHC 34.6 % (32.0-36.0); MCV 91 fL (80-95); MPV 11.6 fL (8.0-11.0); Monocytes % 7.7; Platelet Count 219 10^3/uL (130-400); RBC 4.63 10^6/uL (4.36-5.78); RDW 13.5 % (11.8-14.1); RDW-SD 44.9 fL; WBC 7.36 10^3/uL (4.4-10.8)
[2023-01-11 12:47] LABS: Bilirubin Negative (Negative); Blood Negative (Negative); Clarity Clear (Clear); Glucose Negative (Negative); Ketones Negative (Negative); Leukocyte Esterase Negative (Negative); Nitrite Negative (Negative); Specific Gravity 1.015 (1.005-1.025); Urobilinogen 0.2 mg/dL (Up to 0.2); pH 6.5 (5-8)
[2023-01-11 12:52] LABS: Albumin 4.1 g/dL (3.4-5.0); Anion Gap 8.1 mmol/L (3-11); BUN 28 mg/dL (7-18); CO2 25.9 mmol/L (21.0-32.0); CREATININE 1.6 mg/dL (0.70-1.30); Calcium 9.6 mg/dL (8.5-10.1); Chloride 102 mmol/L (98-107); Estimated GFR 47.82 (mL/min/1.73m2); Glucose 108 mg/dL (74-106); Magnesium 2.1 mg/dL (1.8-2.4); PHOSPHORUS 3.6 mg/dL (2.6-4.7); Potassium 4.2 mmol/L (3.5-5.1); Sodium 136 mmol/L (136-145); Uric Acid 4.4 mg/dL (3.5-7.2)
[2023-01-11 12:56] LABS: Bacteria Rare HPF (Negative); C & S Indicated? No; Casts 0-2 Hyaline LPF (Negative); Crystals Negative HPF (Negative); Epithelial Cells Moderate HPF (Negative); Mucus Negative (Negative); RBC Negative HPF (0-2); WBC Negative HPF (0-5)
[2023-01-11 13:17] LABS: PROTEIN 56.8 mg/dL; Prot/Crea Ur Ratio 0.76
[2023-01-14 09:23] LABS: Parathyroid Hormone,Intact 71 pg/mL (19-88)
== END 2023-01-11 00:52 | disposition home or self-care (01) ==
LOC: LBO 00:51
PROVIDERS: PCP Internal Medicine; Visit Provider Internal Medicine Nephrology
DX: N18.9 Chronic kidney disease, unspecified (principal)
CPT/HCPCS: 36415; 80048; 81003; 81015; 82040; 82565; 83735; 83970; 84100; 84156; 84550; 85025

== ENCOUNTER 2023-05-22 05:03 | Outpatient (CLI) | payer MEDICAID, SELFPAY ==
[2023-05-22 09:55] LABS: Abs Immature Grans 0.02 10^3/uL (0.0-0.06); Absolute Basophil Count 0.04 10^3/uL (0.0-0.2); Absolute Eosinophil Count 0.24 10^3/uL (0.0-0.7); Absolute Lymphocyte Count 1.37 10^3/uL (1.2-3.4); Absolute Monocyte Count 0.66 10^3/uL (0.1-0.8); Absolute Neutrophil Count 4.72 10^3/uL (1.2-6.7); Basophils % 0.6; Eosinophils % 3.4; HCT 41.1 % (40.0-50.0); HGB 14.5 g/dL (13.5-17.5); Immature Grans % 0.3; Lymphocytes % 19.4; MCH 32.1 pg (27.0-33.0); MCHC 35.3 % (32.0-36.0); MCV 91 fL (80-95); MPV 10.5 fL (8.0-11.0); Monocytes % 9.4; Neutrophils % 66.9; Platelet Count 238 10^3/uL (130-400); RBC 4.52 10^6/uL (4.36-5.78); RDW 13.4 % (11.8-14.1); RDW-SD 43.8 fL; WBC 7.05 10^3/uL (4.4-10.8)
[2023-05-22 10:31] LABS: ALT 40 U/L (16-63); AST 13 U/L (15-37); Albumin 4.1 g/dL (3.4-5.0); Alkaline Phosphatase 66 U/L (46-116); Anion Gap 9.1 mmol/L (3-11); BUN 30 mg/dL (7-18); Bilirubin, Total 0.6 mg/dL (0.2-1.0); CO2 29.9 mmol/L (21.0-32.0); CREATININE 1.6 mg/dL (0.70-1.30); Calcium 9.8 mg/dL (8.5-10.1); Chloride 102 mmol/L (98-107); Estimated GFR 47.82 (mL/min/1.73m2); Glucose 101 mg/dL (74-106); Potassium 4.2 mmol/L (3.5-5.1); Sodium 141 mmol/L (136-145); Total Protein 7.8 g/dL (6.4-8.2)
[2023-05-23 10:10] LABS: IgA 129 mg/dL (85-499); IgG 1104 mg/dL (610-1616); IgM 203 mg/dL (35-242); Kappa Free Light Chain 4.95 mg/dL (0.33-1.94); Lambda Free Light Chain 1.94 mg/dL (0.57-2.63)
[2023-05-23 13:57] LABS: Albumin g/dL 4.4 g/dL (3.6-5.2); Total Protein 7.4 g/dL (6.3-8.2)
== END 2023-05-22 05:04 | disposition home or self-care (01) ==
LOC: LBO 05:03
PROVIDERS: PCP Internal Medicine; Visit Provider Internal Medicine Hematology & Oncology
DX: D47.2 Monoclonal gammopathy (principal)
CPT/HCPCS: 36415; 80053; 82784; 83883; 84165; 85025

== ENCOUNTER → 2023-06-11 17:59 | Outpatient (CLI) | payer MEDICAID, SELFPAY ==
--- NOTE | 2023-06-11 | DI.RAD_ITS ---
Exam(s) XR LUMBAR SPINE COMPLETE EXAM: XR LUMBAR SPINE COMPLETE CLINICAL HISTORY: ACUTE LOW BACK PAIN, M54.50,FELL INTO CHAIR SEAT. TECHNIQUE: 2D digital imaging was performed. COMPARISON: CR XR LUMBAR SPINE COMPLETE from 11/30/2020 FINDINGS: Six views. Sacralized L5 segment again noted. No evidence of fracture, listhesis, nor pars defects. Moderate disc space narrowing at L5-S1 level i s unchanged. Other disc spaces continue to exhibit normal height. Mild anterior osseous lipping at L2-3 level again noted. Both any significant degenerative changes in the facet joints. IMPRESSION: Sacralized L5 segment again noted. This as additional stress to L4-5 level although the L4-5 disc sp dominik does not exhibit significant narrowing when compared to images of 11/30/2020. No significant sushil nge. DATA REPOSITORY: RADIATION DOSE DELIVERED:
== END ==
PROVIDERS: PCP Internal Medicine; Visit Provider Internal Medicine
DX: M54.50 Low back pain, unspecified (principal)
CPT/HCPCS: 72110

== ENCOUNTER 2024-06-29 13:17 | Outpatient (CLI) | payer MEDICARE, MEDICAID, SELFPAY ==
[2024-06-29 10:55] LABS: Abs Immature Grans 0.02 10^3/uL (0.0-0.06); Absolute Basophil Count 0.04 10^3/uL (0.0-0.2); Absolute Eosinophil Count 0.19 10^3/uL (0.0-0.7); Absolute Lymphocyte Count 1.35 10^3/uL (1.2-3.4); Absolute Monocyte Count 0.53 10^3/uL (0.1-0.8); Absolute Neutrophil Count 4.16 10^3/uL (1.2-6.7); Basophils % 0.6 %; HCT 38.6 % (40.0-50.0); HGB 13.3 g/dL (13.5-17.5); Immature Grans % 0.3 %; Lymphocytes % 21.5 %; MCH 31.3 pg (27.0-33.0); MCHC 34.5 % (32.0-36.0); MCV 91 fL (80-95); MPV 10.5 fL (8.0-11.0); Monocytes % 8.4 %; Neutrophils % 66.2 %; Platelet Count 188 10^3/uL (130-400); RBC 4.25 10^6/uL (4.36-5.78); RDW 13.8 % (11.8-14.1); RDW-SD 45.7 fL; WBC 6.29 10^3/uL (4.4-10.8)
[2024-06-29 11:12] LABS: ALT 28 U/L (16-63); AST 21 U/L (15-37); Alkaline Phosphatase 63 U/L (46-116); Anion Gap 5.3 mmol/L (3-11); BUN 20 mg/dL (7-18); Bilirubin, Total 0.4 mg/dL (0.2-1.0); CO2 28.7 mmol/L (21.0-32.0); CREATININE 1.4 mg/dL (0.70-1.30); Calcium 9.6 mg/dL (8.5-10.1); Chloride 105 mmol/L (98-107); Estimated GFR 55.78 (mL/min/1.73m2); Glucose 94 mg/dL (74-106); Potassium 4.7 mmol/L (3.5-5.1); Sodium 139 mmol/L (136-145); Total Protein 7.3 g/dL (6.4-8.2)
[2024-06-30 10:21] LABS: IgA 99 mg/dL (85-499); IgG 956 mg/dL (610-1616); IgM 166 mg/dL (35-242); Kappa Free Light Chain 2.77 mg/dL (0.33-1.94); Lambda Free Light Chain 1.81 mg/dL (0.57-2.63)
[2024-06-30 13:09] LABS: Albumin 62.7 % (55.8-66.1); Albumin g/dL 4.3 g/dL (3.6-5.2); Total Protein 6.8 g/dL (6.3-8.2)
== END 2024-06-29 13:18 | disposition home or self-care (01) ==
PROVIDERS: PCP Internal Medicine; Visit Provider Internal Medicine Hematology & Oncology
DX: D47.2 Monoclonal gammopathy (principal)
CPT/HCPCS: 36415; 80053; 82784; 83883; 84165; 85025

== ENCOUNTER 2024-08-06 10:39 | Outpatient (CLI) | payer MEDICARE, MEDICAID, SELFPAY ==
[2024-08-06 11:10] LABS: Abs Immature Grans 0.02 10^3/uL (0.0-0.06); Absolute Basophil Count 0.04 10^3/uL (0.0-0.2); Absolute Eosinophil Count 0.19 10^3/uL (0.0-0.7); Absolute Lymphocyte Count 1.41 10^3/uL (1.2-3.4); Absolute Monocyte Count 0.49 10^3/uL (0.1-0.8); Absolute Neutrophil Count 3.81 10^3/uL (1.2-6.7); Basophils % 0.7 %; Eosinophils % 3.2 %; HCT 37.5 % (40.0-50.0); HGB 12.7 g/dL (13.5-17.5); Immature Grans % 0.3 %; Lymphocytes % 23.7 %; MCH 30.9 pg (27.0-33.0); MCHC 33.9 % (32.0-36.0); MCV 91 fL (80-95); MPV 10.8 fL (8.0-11.0); Monocytes % 8.2 %; Neutrophils % 63.9 %; Platelet Count 187 10^3/uL (130-400); RBC 4.11 10^6/uL (4.36-5.78); RDW 13.3 % (11.8-14.1); RDW-SD 44.5 fL; WBC 5.96 10^3/uL (4.4-10.8)
[2024-08-06 12:22] LABS: ALT 39 U/L (16-63); AST 21 U/L (15-37); Alkaline Phosphatase 63 U/L (46-116); Anion Gap 6.1 mmol/L (3-11); BUN 24 mg/dL (7-18); Bilirubin, Total 0.4 mg/dL (0.2-1.0); CO2 27.9 mmol/L (21.0-32.0); Calcium 9.2 mg/dL (8.5-10.1); Chloride 104 mmol/L (98-107); Glucose 104 mg/dL (74-106); Potassium 4.7 mmol/L (3.5-5.1); Sodium 138 mmol/L (136-145); Total Protein 7.3 g/dL (6.4-8.2)
[2024-08-06 14:07] LABS: Iron 75 ug/dL (65-175); Total Iron Binding Capacity 220 ug/dL (250-450); Transferrin Sat 34 % (20-55)
[2024-08-06 14:34] LABS: Ferritin 496 ng/mL (26-388); TSH 1.88 uIU/mL (0.36-3.74); Vitamin B12 280 pg/mL (193-986)
[2024-08-06 14:54] LABS: CREATININE 1.3 mg/dL (0.70-1.30); Estimated GFR 60.96 (mL/min/1.73m2)
[2024-08-07 10:11] LABS: IgA 103 mg/dL (85-499); IgG 891 mg/dL (610-1616); IgM 173 mg/dL (35-242); Kappa Free Light Chain 2.62 mg/dL (0.33-1.94); Lambda Free Light Chain 1.71 mg/dL (0.57-2.63)
[2024-08-07 13:26] LABS: Albumin 62.4 % (55.8-66.1); Albumin g/dL 4.2 g/dL (3.6-5.2); Total Protein 6.7 g/dL (6.3-8.2)
== END 2024-08-06 10:40 | disposition home or self-care (01) ==
PROVIDERS: PCP Internal Medicine; Visit Provider Internal Medicine Hematology & Oncology
DX: D47.2 Monoclonal gammopathy (principal); D64.9 Anemia, unspecified
CPT/HCPCS: 36415; 80053; 82784; 82607; 82728; 83540; 83550; 83883; 84165; 84443; 85025

== ENCOUNTER → 2024-12-28 07:43 | Outpatient (BNVA) | payer MEDICARE, MEDICAID, SELFPAY | PROVIDERS: PCP Internal Medicine; Referring Provider Internal Medicine; Visit Provider Podiatrist | DX: L60.0 Ingrowing nail (principal); I12.9 Hypertensive chronic kidney disease with stage 1 through stage 4 chronic kidney disease, or unspecified chronic kidney disease; N18.9 Chronic kidney disease, unspecified | CPT/HCPCS: 11750 ==

== ENCOUNTER → 2025-01-18 08:25 | Outpatient (BNVA) | payer MEDICARE, MEDICAID, SELFPAY | PROVIDERS: PCP Internal Medicine; Referring Provider Internal Medicine; Visit Provider Podiatrist | DX: L60.0 Ingrowing nail (principal); M79.671 Pain in right foot; M79.672 Pain in left foot | CPT/HCPCS: 11750 ==

== ENCOUNTER → 2025-02-01 08:29 | Outpatient (BNVA) | payer MEDICARE, SELFPAY | PROVIDERS: PCP Internal Medicine; Referring Provider Internal Medicine; Visit Provider Podiatrist | DX: L60.0 Ingrowing nail (principal); R25.2 Cramp and spasm | CPT/HCPCS: 11750; 99213 ==